=== PATIENT | female | born 1930 | race Caucasian/White ===

== ENCOUNTER → 2016-03-29 | Outpatient (CLI) | payer MEDICARE ==
--- NOTE | 2016-03-29 11:59 | WOMENS IMAGING REPORT ---
EXAM DESCRIPTION: BONE DENSITY HIP/SPINE COMPLETED DATE/TIME: 03/29/2016 10:17 am REASON FOR STUDY: AGE-RELATED OSTEOPOROSIS WITHOUT CURRENT PATHOLOGICAL FRACTURE (M81.0) M81.0 AGE -RELATED OSTEOPOROSIS W/O CURRENT PATHOLOGICAL FRAC Z12.31 ENCNTR SCREEN MAMMOGRAM FOR MALIGNANT GABRIEL PLASM OF JOEY COMPARISON: None. TECHNIQUE: Dual-Energy X-ray Absorptiometry (DEXA) of the AP Spine and Hip. LIMITATIONS: None. FINDINGS: LUMBAR SPINE: The bone mineral density (BMD) measured from L1-L4 in the AP projection correlates with a T-score of -2, which is osteopenia as defined by the World Health Organization. HIP: The bone mineral density (BMD) measured in the left hip correlates with a T-score of -1.7 in the femo ral neck, which is osteopenia as defined by the World Health Organization. COMMENT: The World Health Organization defines low BMD as follows: T-score: Normal: Greater than -1.0 Osteopenia: Between -1.0 and -2.5 Osteoporosis: Less than -2.5 without fractures Established osteoporosis: Less than -2.5 with fractures In general, you may wish to consider: Diagnosis Treatment Follow-up DEXA Normal BMD Prevention 2-3 years Osteopenia Prevention/Therapy 1-2 years Osteoporosis Therapy Yearly TECHNICAL DOCUMENTATION: JOB ID: [id number]- All Rights Reserved
--- NOTE | 2016-03-29 17:26 | WOMENS IMAGING REPORT ---
EXAM DESCRIPTION: BILAT SCREENING MAMMO W/CAD COMPLETED DATE/TIME: 03/29/2016 10:02 am REASON FOR STUDY: BILAT SCREENING MAMMO (Z12.31) M81.0 AGE-RELATED OSTEOPOROSIS W/O CURRENT PATHOLO GICAL FRAC Z12.31 ENCNTR SCREEN MAMMOGRAM FOR MALIGNANT NEOPLASM OF JOEY COMPARISON: No previous TECHNIQUE: Standard craniocaudal and mediolateral oblique views of each breast recorded using digita l acquisition. LIMITATIONS: None. FINDINGS: Findings present which are benign by mammographic criteria. No suspicious masses, calcifi cations or architectural distortion. Benign calcifications bilaterally Read with the assistance of CAD. .[facility] - R2 Cenova Version 1.3 .[facility] - R2 Cenova Version 1.3 .[facility] - R2 Cenova Version 2.4 .[facility] [place] R2 Cenova Version 2.4 .[facility] - R2 Federal Agent Version 9.2 Benign mammographic findings may include one or more of the following: Smooth masses, popcorn/rim/co arse calcifications, asymmetries, post-procedure changes, and lesions with long-standing stability. BREAST DENSITY: b. There are scattered areas of fibroglandular density. BIRAD: 2 BENIGN FINDING(S) RECOMMENDATION: ROUTINE SCREENING COMMENT: PATIENT NOTIFIED BY LETTER. The [employer] recommends an annual screening mammogram for women aged 40 years or over. Each patient will receive a reminder prior to the anniversary date of her mammogram. The [employer] (ACR) has developed recommendations for screening MRI of the breast s in certain patient populations, to be used in conjunction with mammography. Breast MRI surveillanc e may be appropriate for women with more than 20% lifetime risk of developing breast cancer as deter mined by genetic testing, significant family history of the disease, or history of mantle radiation f or Hodgkins Disease. ACR Practice Guidelines 2008. TECHNICAL DOCUMENTATION: FINDING NUMBER: (1) ASSESSMENT: (1) JOB ID: [id number] [employer]- All Rights Reserved
== END ==
LOC: WI 09:40
PROVIDERS: ATTEND Physician Assistant
DX: M81.0 Age-related osteoporosis without current pathological fracture (principal); Z12.31 Encounter for screening mammogram for malignant neoplasm of breast
CPT/HCPCS: 77080; G0202; 77067

== ENCOUNTER 2016-12-15 08:45 | Day surgery (SDC) | payer MEDICARE ==
[~2016-12-15 08:45] MED LIST: KETOROLAC TROMETHAMINE 0.45% 4 DROP/0.4 ML DROPERETTE OD PRN
[2016-12-15] MEDS ORDERED: EPINEPHRINE INJ/PF 1 MG/1 ML AMPULE ONE (08:49)
[2016-12-15] MEDS ORDERED: LIDOCAINE 1% INJ-PF (10 MG/ML) 30 ML SDV ONE (08:49)
[2016-12-15] MEDS ORDERED: CHONDR SU A NA/HYALUR INTRAOC KIT (SURGICARE) ONE (08:50)
[2016-12-15] MEDS: TETRACAINE HCL 0.5% OPH SOLN 2 ML OD PRN ×3 (09:30→10:10)
[2016-12-15] MEDS: TROPICAMIDE 1% OPH SOLN 3 ML OD PRN ×3 (09:30→09:56)
[2016-12-15] MEDS: CYCLOPENTOLATE 0.2%/PHENYLEPHRINE 1% OPH SOLN 2 ML OD PRN ×3 (09:30→09:56)
[2016-12-15] MEDS: BESIFLOXACIN HCL 0.6% OPH SUSP 5 ML BOTTLE OD PRN ×3 (09:31→10:28)
[2016-12-15] MEDS ORDERED: MIDAZOLAM 2 MG/2 ML INJ ONE (10:01)
[2016-12-15] MEDS ORDERED: FENTANYL CITRATE INJ/PF 100 MCG/2 ML AMPUL ONE (10:01)
--- NOTE | 2016-12-15 18:38 | [facility] OPERATIVE REPORT E ---
[facility] Operative Report NAME: SANDRA FLORENTINO AGE: 86Y DATE OF SURGERY: 12/15/2016 ROOM: PREOPERATIVE DIAGNOSIS: Cataract, right eye. POSTOPERATIVE DIAGNOSIS: Cataract, right eye. OPERATION: Cataract extraction with intraocular lens implant of the right eye. SURGEON: SARA BURRIS M.D. ANESTHESIA: Topical. PROCEDURE: After obtaining appropriate consent, the patient's right eye was prepped and draped in sterile fashion as well as the surgeon in a sterile manner and cataract surgery was started. First a paracentesis blade was used to make a small side-port incision. Viscoelastic was used to inflate the anterior chamber. Next a 2.4 mm incision was made with the paracentesis blade. A continuous capsulorrhexis incision was made using a cystotome and Utrata forceps. Following this hydrodissection was carried out to make the lens fully loose and mobile and it was rotated 90 degrees. Following this, a wdtwrz-yby-jhcchru technique was used to phacoemulsify the lens with a CDE of 13.6. The remaining cortex was removed with irrigation/aspiration. Provisc was instilled into the capsular bag to inflate the bag. A SN60WF, 22.0 diopter lens was placed. The remaining viscoelastic material was removed with irrigation/aspiration. Following this, a 10-0 nylon suture was used to close the incision and it was found to be watertight. Vigamox was instilled in the eye and a protective shield was placed over the eye. The patient returned to the postoperative recovery in stable condition. DICTATING PHYSICIAN: SARA BURRIS M.D. [id number] PHY#: [id number] ID: [id number] JOB#: [id number] ACCT: [id number] cc:SARA BURRIS M.D. >
--- NOTE | 2016-12-15 18:42 | [facility] DISCHARGE SUMMARY E ---
[facility] Discharge Summary NAME: SANDRA FLORENTINO AGE: 86Y ADMITTED: 12/15/2016 DISCHARGED: 12/15/2016 HISTORY OF PRESENT ILLNESS AND HOSPITAL COURSE: This is an 86-year-old patient who underwent cataract extraction of the right eye. DIAGNOSIS: Cataract, right eye. HOSPITAL COURSE: She underwent surgery because she was having difficulty with glare from headlights, making driving difficult. DISCHARGE INSTRUCTIONS: 1. She should be on a regular diet. 2. No bending at the waist and no heavy lifting. 3. She should use her Besivance, Ilevro, and Durezol at 3 p.m. and 8 p.m. and sleep with a rigid shield. 4. I will see her for her one-day postoperative tomorrow. DICTATING PHYSICIAN: SARA BURRIS M.D. [id number] PHY#: [id number] ID: [id number] JOB#: [id number] ACCT: [id number] cc:SARA BURRIS M.D. >
== END 2016-12-15 11:03 | disposition home or self-care (01) ==
LOC: SC 08:45
PROVIDERS: ATTEND Internal Medicine
PROC: 08RJ3JZ Replacement of Right Lens with Synthetic Substitute, Percutaneous Approach (ICD-10-PCS; principal; 2016-12-15 10:30)
DX: H25.13 Age-related nuclear cataract, bilateral (principal); Z88.5 Allergy status to narcotic agent
CPT/HCPCS: 66984; V2632; J2250; J3490 ×2; A9270; J0171; J3010; 142

== ENCOUNTER 2017-01-05 09:39 | Day surgery (SDC) | payer MEDICARE ==
[~2017-01-05 09:39] MED LIST changes: +CHONDR SU A NA/HYALUR INTRAOC KIT (SURGICARE) ONE; +EPINEPHRINE INJ/PF 1 MG/1 ML AMPULE ONE; -KETOROLAC TROMETHAMINE 0.45% 4 DROP/0.4 ML DROPERETTE OD PRN; +KETOROLAC TROMETHAMINE 0.45% 4 DROP/0.4 ML DROPERETTE OS PRN; +LIDOCAINE 1% INJ-PF (10 MG/ML) 30 ML SDV ONE
[2017-01-05] MEDS: TROPICAMIDE 1% OPH SOLN 3 ML OS PRN ×3 (10:00→10:25)
[2017-01-05] MEDS: BESIFLOXACIN HCL 0.6% OPH SUSP 5 ML BOTTLE OS PRN ×3 (10:00→10:54)
[2017-01-05] MEDS: CYCLOPENTOLATE 0.2%/PHENYLEPHRINE 1% OPH SOLN 2 ML OS PRN ×3 (10:00→10:25)
[2017-01-05] MEDS: TETRACAINE HCL 0.5% OPH SOLN 2 ML OS PRN ×4 (10:00→10:40)
[2017-01-05] MEDS ORDERED: MIDAZOLAM 2 MG/2 ML INJ ONE (10:05)
--- NOTE | 2017-01-08 18:57 | [facility] OPERATIVE REPORT E ---
[facility] Operative Report NAME: SANDRA FLORENTINO AGE: 86Y DATE OF SURGERY: 01/05/2017 ROOM: PREOPERATIVE DIAGNOSIS: Cataract, left eye. POSTOPERATIVE DIAGNOSIS: Cataract, left eye. OPERATION: Cataract extraction with intraocular lens implant of the left eye. SURGEON: SARA BURRIS M.D. ANESTHESIA: Topical. PROCEDURE: After obtaining appropriate consent, the patient's left eye was prepped and draped in sterile fashion as well as the surgeon in a sterile manner and cataract surgery was started. First a paracentesis blade was used to make a small side-port incision. Viscoelastic was used to inflate the anterior chamber. Next a 2.4 mm incision was made with the paracentesis blade. A continuous capsulorrhexis incision was made using a cystotome and Utrata forceps. Following this hydrodissection was carried out to make the lens fully loose and mobile and it was rotated 90 degrees. Following this, a akzhye-mbx-dgkvxzx technique was used to phacoemulsify the lens with a CDE of 21.15. The remaining cortex was removed with irrigation/aspiration. Provisc was instilled into the capsular bag to inflate the bag. A SN60WF, 22.5 diopter lens was placed. The remaining viscoelastic material was removed with irrigation/aspiration. Following this, a 10-0 nylon suture was used to close the incision and it was found to be watertight. Vigamox was instilled in the eye and a protective shield was placed over the eye. The patient returned to the postoperative recovery in stable condition. DICTATING PHYSICIAN: SARA BURRIS M.D. [id number] PHY#: [id number] ID: [id number] JOB#: [id number] ACCT: [id number] cc:SARA BURRIS M.D. >
--- NOTE | 2017-01-08 18:58 | [facility] DISCHARGE SUMMARY E ---
[facility] Discharge Summary NAME: SANDRA FLORENTINO AGE: 86Y ADMITTED: 01/05/2017 DISCHARGED: 01/05/2017 HISTORY OF PRESENT ILLNESS AND HOSPITAL COURSE: This is an 86-year-old patient who underwent cataract extraction of the left eye. DIAGNOSIS: Cataract, left eye. HOSPITAL COURSE: She underwent surgery because she was having difficulty driving due to poor visualization of the street signs. DISCHARGE INSTRUCTIONS: 1. She should be on a regular diet. 2. No bending at the waist and no heavy lifting. 3. She should use Besivance, Ilevro, and Durezol at 3 p.m. and 8 p.m. and sleep with a rigid shield. 4. I will see her for a one-day postoperative tomorrow. DICTATING PHYSICIAN: SARA BURRIS M.D. [id number] PHY#: [id number] ID: [id number] JOB#: [id number] ACCT: [id number] cc:SARA BURRIS M.D. >
== END 2017-01-05 11:27 | disposition home or self-care (01) ==
LOC: SC 09:39
PROVIDERS: ATTEND Internal Medicine
PROC: 08RK3JZ Replacement of Left Lens with Synthetic Substitute, Percutaneous Approach (ICD-10-PCS; principal; 2017-01-05 11:00)
DX: H25.12 Age-related nuclear cataract, left eye (principal); Z96.1 Presence of intraocular lens; Z88.5 Allergy status to narcotic agent
CPT/HCPCS: 66984; V2632; J2250; J3490 ×2; A9270; J0171; 142

== ENCOUNTER → 2018-04-10 | Outpatient (CLI) | payer MEDICARE ==
--- NOTE | 2018-04-10 15:48 | WOMENS IMAGING REPORT ---
EXAM DESCRIPTION: 3D SCREENING MAMMO BILAT COMPLETED DATE/TIME: 04/10/2018 1:21 pm REASON FOR STUDY: Z12.31 SCREENING MAMMO Z12.31 ENCNTR SCREEN MAMMOGRAM FOR MALIGNANT NEOPLASM OF B RE COMPARISON: 2017 TECHNIQUE: Standard craniocaudal and mediolateral oblique views of each breast recorded using digita l acquisition and breast tomosynthesis. LIMITATIONS: None. FINDINGS: Findings present which are benign by mammographic criteria. No suspicious masses, calcifi cations or architectural distortion. Pertinent benign findings: Stable lymph node left breast Read with the assistance of CAD. .[facility] - R2 Cenova Version 1.3 .[facility] - R2 Cenova Version 1.3 .[facility] - R2 Cenova Version 2.4 .[facility] - R2 Cenova Version 2.4 .[facility] - R2 [employer] Version 9.2 Benign mammographic findings may include one or more of the following: Smooth masses, popcorn/rim/co arse calcifications, asymmetries, post-procedure changes, and lesions with long-standing stability. IMPRESSION: BENIGN MAMMOGRAPHIC FINDINGS. BIRADS 2 BREAST DENSITY: b. There are scattered areas of fibroglandular density. BIRAD: 2 BENIGN FINDING(S) RECOMMENDATION: RECOMMENDATION: ROUTINE SCREENING COMMENT: The patient has been notified of the results by letter per MQSA requirements. Additional no tification policies are in place for contacting patient with suspicious or incomplete findings. Quality ID #[id number]: The [employer] recommends an annual screening mammogram for women aged 40 years or over. This facility utilizes a reminder system to ensure that all patients receive reminder letters, and/or direct phone calls for appointments. This includes reminders for routine scr eening mammograms, diagnostic mammograms, or other Breast Imaging Interventions when appropriate. Th is patient will be placed in the appropriate reminder system. The [employer] (ACR) has developed recommendations for screening MRI of the breast s in certain patient populations, to be used in conjunction with mammography. Breast MRI surveillanc e may be appropriate for women with more than 20% lifetime risk of developing breast cancer as deter mined by genetic testing, significant family history of the disease, or history of mantle radiation f or Hodgkins Disease. ACR Practice Guidelines 2008. DBT Technology DBT is a type of tomographic mammography. With conventional mammography, overlapping breast tissue ma y make lesions difficult to detect, even with good compression. DBT uses an x-ray tube that rotates a round the breast, taking images at different angles. These images are then combined to create thin sl ices of the breast that the radiologist can view as a 3D reconstruction. The Hologic unit can perform full-field digital mammograms (2D imaging); or DBT (3D imaging); or both, in a combination mode that quickly performs both the mammogram and the tomosynthesis scan while the breast is still compressed. PQRS 6045F: Fluoroscopic imaging is not utilized for breast tomosynthesis. TECHNICAL DOCUMENTATION: FINDING NUMBER: (1) ASSESSMENT: (1) JOB ID: [id number] [employer]- All Rights Reserved Reading location - IP/workstation name: [email or web address]
== END ==
LOC: WI 12:39
PROVIDERS: ATTEND Physician Assistant
DX: Z12.31 Encounter for screening mammogram for malignant neoplasm of breast (principal)
CPT/HCPCS: 77063; 77067

== ENCOUNTER 2018-06-27 17:59 | Inpatient (IN) | payer MEDICARE ==
--- NOTE | 2018-06-27 19:46 | ER Document Report ---
ED Medical Screen (RME) - General Chief Complaint: Abnormal Lab Results Stated Complaint: ABNORMAL LABS/DIARRHEA Time Seen by Provider: 06/27/18 19:44 Primary Care Provider: GUALBERTO MOSES PA-C [Primary Care Provider] - Follow up as needed Notes: Very pleasant 87-year-old female presents sent over from Dr. Moses's office to the emergency department by personal vehicle for abnormal lab results and diarrhea times [address] Tejeda called to the ER and reported that her sodium was 117. Patient and patient's daughter reports that she has had diarrhea for 3 weeks, states that from midnight to 6 AM she has about 15 episodes of diarrhea, takes Imodium in the morning and then at lunchtime which helps it subside, and then the cycle begins again. She suspects that was from a salad that she ate 3 weeks ago and she just has not been able to overcome the illness. She denies fever, chills, blood in her stool, vomiting or hematemesis, complains of gas but no abdominal pain. No other complaints. I have greeted and performed a rapid initial assessment of this patient. A comprehensive ED assessment and evaluation of the patient, analysis of test results and completion of medical decision making process will be conducted by an additional ED providers. TRAVEL OUTSIDE OF THE [place] IN LAST 30 DAYS: No - Related Data Allergies/Adverse Reactions: morphine Adverse Reaction (Verified 06/27/18 18:02) Nausea Past Medical History - Social History Chew tobacco use (# tins/day): No Frequency of alcohol use: None Drug Abuse: None - Past Medical History Cardiac Medical History: Denies: Hx Heart Attack, Hx Hypertension Pulmonary Medical History: Denies: Hx Asthma Neurological Medical History: Denies: Hx Cerebrovascular Accident, Hx Seizures Renal/ Medical History: Denies: Hx Peritoneal Dialysis GI Medical History: Denies: Hx Hepatitis, Hx Hiatal Hernia, Hx Ulcer Infectious Medical History: Denies: Hx Hepatitis Past Surgical History: Reports: Hx Hysterectomy. Denies: Hx Mastectomy, Hx Open Heart Surgery, Hx Pacemaker Physical Exam - Vital signs Vitals: Temp Pulse Resp BP Pulse Ox 98.1 F 65 16 176/78 H 97 06/27/18 18:07 06/27/18 18:07 06/27/18 18:07 06/27/18 18:07 06/27/18 18:07 Course - Vital Signs Vital signs: Temp Pulse Resp BP Pulse Ox 98.1 F 65 16 176/78 H 97 06/27/18 18:07 06/27/18 18:07 06/27/18 18:07 06/27/18 18:07 06/27/18 18:07 Doctor's Discharge - Discharge Referrals: GUALBERTO MOSES PA-C [Primary Care Provider] - Follow up as needed
[2018-06-27] MEDS ORDERED: NORMAL SALINE 1000 ML 1,000 ML IV ONE (19:47)
[2018-06-27 21:19] LABS: ABSOLUTE EOSINOPHILS # (AUTO) 0.1 10^3/uL (0.0-0.6); ABSOLUTE LYMPHOCYTES (AUTO) 1.5 10^3/uL (0.5-4.7); ABSOLUTE NEUT (AUTO) 4.8 10^3/uL (1.7-8.2); BASOPHILS % (AUTO) 0.6 % (0-2); EOSINOPHILS % (AUTO) 1.1 % (0-6); HEMATOCRIT 37.5 % (36.0-47.0); HEMOGLOBIN 13.1 g/dL (12.0-15.5); LYMPHOCYTES % (AUTO) 20.3 % (13-45); MEAN CORPUSCULAR HEMOGLOBIN 31.8 pg (27.0-33.4); MEAN CORPUSCULAR HGB CONC 34.8 g/dL (32.0-36.0); MEAN CORPUSCULAR VOLUME 91 fl (80-97); PLATELET COUNT 338 10^3/uL (150-450); RED BLOOD COUNT 4.12 10^6/uL (3.72-5.28); RED CELL DISTRIBUTION WIDTH 13.3 % (11.5-14.0); TOTAL CELLS COUNTED % (AUTO) 100 %; WHITE BLOOD COUNT 7.4 10^3/uL (4.0-10.5)
--- NOTE | 2018-06-27 21:19 | ER Document Report ---
ED General - General Chief Complaint: Abnormal Lab Results Stated Complaint: ABNORMAL LABS/DIARRHEA Time Seen by Provider: 06/27/18 21:18 Primary Care Provider: GUALBERTO FERNANDEZ PA-C [Primary Care Provider] - Follow up as needed Mode of Arrival: Ambulatory Information source: Patient, Relative Notes: HISTORY OF PRESENT ILLNESS: Patient is a 87-year-old female with a past medical history of high cholesterol who presents with 3 weeks of nonbloody and watery diarrhea and general weakness with a near syncopal episode prior to arrival. Patient presented to her primary physician who obtained blood work, reportedly the patient had a sodium of 117 and was instructed to come to the emergency department for admission. Of note, the patient reports that she ate dinner at [employer] approximately 3 weeks ago before symptom onset and multiple other members of the [employer] had identical symptoms. Location: Global Onset: 3 weeks ago Provocation: Unknown Quality: Watery diarrhea Radiation: None Severity: Moderate Timing: Intermittent, copious History of syncope: None Recent head injury: None Preceding symptoms: None Associated symptoms: No fevers or chills, no abdominal pain, no chest pain or shortness of breath, no confusion/disorientation, no ataxia REVIEW OF SYSTEMS: CONSTITUTIONAL : Denies fever or chills, no sweats. Denies recent illness. EENT: Denies eye, ear, throat, or mouth pain or symptoms. Denies nasal or sinus congestion. CARDIOVASCULAR: Denies chest pain. RESPIRATORY: Denies cough, cold, or chest congestion. Denies shortness of breath, difficulty breathing, or wheezing. GASTROINTESTINAL: Denies abdominal pain. Positive for nonbloody/watery diarrhea. Denies nausea or vomiting. Denies constipation. GENITOURINARY: Denies difficulty urinating, painful urination, burning, frequency, or blood in urine. FEMALE GENITOURINARY: Denies vaginal bleeding, abnormal or irregular periods. MUSCULOSKELETAL: Denies body aches. Denies neck or back pain or joint pain or swelling. SKIN: Denies rash or skin lesions. HEMATOLOGIC : Denies easy bruising or bleeding. LYMPHATIC: Denies swollen, enlarged glands. NEUROLOGICAL: Positive for near syncope. Denies seizures, altered mental status, or loss of consciousness. Denies weakness/paralysis, problems with gait/speech. Denies sensory or motor loss. PSYCHIATRIC: Denies anxiety or stress or depression. All other systems reviewed and negative. PHYSICAL EXAMINATION: GENERAL: Well-appearing, well-nourished and in no acute distress. HEAD: Atraumatic, normocephalic. No scalp deformity, depression, or crepitance. EYES: Pupils are 3 mm and equal/round/reactive to light, extraocular movements intact, sclera anicteric, conjunctiva are normal. ENT: Nares patent bilaterally, oropharynx clear without exudates or palatal petechia. Moist mucous membranes. No tonsil hypertrophy. NECK: Normal range of motion, supple without lymphadenopathy. LUNGS: Breath sounds present, equal, and clear to auscultation bilaterally. No wheezes, rales, or rhonchi. HEART: Regular rate and rhythm without murmurs, rubs, or gallops. 2+ peripheral pulses. Normal capillary refill. ABDOMEN: Soft, nontender, nondistended. Normoactive bowel sounds. No guarding, no rebound. No masses appreciated. BACK: Normal contour, no midline tenderness. Rectal exam deferred. GENITAL/PELVC: Deferred. EXTREMITIES: Normal range of motion, no pitting or edema. No cyanosis. NEUROLOGICAL: No focal neurological deficits. Cranial nerves III-XII grossly intact. Moves all extremities spontaneously and on command. PSYCH: Normal mood, normal affect. No suicidal thoughts/ideations. No homicidal thoughts/ideations. No hallucinations. SKIN: Warm, dry, normal turgor, no rashes or lesions noted. ASSESSMENT AND PLAN: This patient is a 87-year-old female who presents with 3 weeks of nonbloody and watery diarrhea and 1 day of worsening weakness with near syncopal episode prior to arrival. Unsure etiology of diarrhea, could be infectious versus inflammatory. Etiology of hyponatremia is also unclear, however could represent adrenal suppression. 1. Will obtain labs, urine, serum/serum osmolality, urine sodium, give oral Imodium, and admit to the hospital. 2. Will fluid restrict. TRAVEL OUTSIDE OF THE [place] IN LAST 30 DAYS: No - Related Data Allergies/Adverse Reactions: morphine Adverse Reaction (Verified 06/27/18 18:02) Nausea Past Medical History - General Information source: Patient, Relative - Social History Smoking Status: Never Smoker Chew tobacco use (# tins/day): No Frequency of alcohol use: None Drug Abuse: None Lives with: Family Family History: Reviewed & Not Pertinent Patient has suicidal ideation: No Patient has homicidal ideation: No - Past Medical History Cardiac Medical History: Reports: Hx Hypercholesterolemia Denies: Hx Heart Attack, Hx Hypertension Pulmonary Medical History: Reports: None Denies: Hx Asthma EENT Medical History: Reports: None Neurological Medical History: Reports: None. Denies: Hx Cerebrovascular Accident, Hx Seizures Endocrine Medical History: Reports: None Renal/ Medical History: Reports: None. Denies: Hx Peritoneal Dialysis Malignancy Medical History: Reports: None GI Medical History: Reports: None. Denies: Hx Hepatitis, Hx Hiatal Hernia, Hx Ulcer Musculoskeletal Medical History: Reports None Skin Medical History: Reports None Psychiatric Medical History: Reports: None Traumatic Medical History: Reports: None Infectious Medical History: Reports: None. Denies: Hx Hepatitis Past Surgical History: Reports: Hx Hysterectomy. Denies: Hx Mastectomy, Hx Open Heart Surgery, Hx Pacemaker - Immunizations Immunizations up to date: Yes Hx Diphtheria, Pertussis, Tetanus Vaccination: Yes History of Influenza Vaccine for 12/2017 - 05/2018 Season: Unknown Physical Exam - Vital signs Vitals: Temp Pulse Resp BP Pulse Ox 98.1 F 65 16 176/78 H 97 06/27/18 18:07 06/27/18 18:07 06/27/18 18:07 06/27/18 18:07 06/27/18 18:07 Course - Re-evaluation Re-evalutation: 06/27/18 23:08 Patient has a sodium of 122. She will be fluid restricted and is admitted to the hospital. - Vital Signs Vital signs: Temp Pulse Resp BP Pulse Ox 98.1 F 65 13 176/78 H 91 L 06/27/18 18:07 06/27/18 18:07 06/27/18 21:08 06/27/18 18:07 06/27/18 21:08 - Laboratory Result Diagrams: 06/27/18 20:57 06/27/18 20:57 Laboratory results interpreted by me: 06/27/18 20:57 Sodium 122.3 L Chloride 93 L Carbon Dioxide 20 L Creatinine 0.42 L AST 61 H - Consults Dr. Plasencia Time consulted: 23:09 - will admit Consulted provider: will come to ER Discharge - Discharge Clinical Impression: Hyponatremia Diarrhea Qualifiers: Diarrhea type: unspecified type Qualified Code(s): R19.7 - Diarrhea, unspecified Condition: Stable Disposition: ADMITTED INPATIENT Admitting Provider: Luis Angel (Hospitalist) Unit Admitted: Telemetry Referrals: GUALBERTO FERNANDEZ PA-C [Primary Care Provider] - Follow up as needed
[2018-06-27 21:36] LABS: ALANINE AMINOTRANSFERASE 49 U/L (9-52); ALBUMIN 4.1 g/dL (3.5-5.0); ALKALINE PHOSPHATASE 84 U/L (38-126); ANION GAP 9 (5-19); ASPARTATE AMINO TRANSFERASE 61 U/L (14-36); BILIRUBIN,DIRECT 0.2 mg/dL (0.0-0.4); BILIRUBIN,TOTAL 0.5 mg/dL (0.2-1.3); BLOOD UREA NITROGEN 8 mg/dL (7-20); CALCIUM 10.2 mg/dL (8.4-10.2); CARBON DIOXIDE 20 mmol/L (22-30); CHLORIDE 93 mmol/L (98-107); GLUCOSE 110 mg/dL (75-110); POTASSIUM 3.6 mmol/L (3.6-5.0); SODIUM 122.3 mmol/L (137-145); TOTAL PROTEIN 6.9 g/dL (6.3-8.2)
[2018-06-27] MEDS ORDERED: LOPERAMIDE HCL 2 MG CAPSULE PO ONE (22:26)
[2018-06-27] MEDS ORDERED: ONDANSETRON HCL INJ/PF 4 MG/2 ML SDV IV ONE (22:50)
[2018-06-27] MEDS ORDERED: ACETAMINOPHEN 325 MG TABLET PO PRN (23:05)
[2018-06-27] MEDS ORDERED: IPRATROPIUM/ALBUTEROL 0.5-2.5 MG/3 ML AMPUL NEB PRN (23:05)
[2018-06-27] MEDS ORDERED: MAGNESIUM HYDROXIDE SUSP 30 ML UDCUP PO PRN (23:05)
[2018-06-27] MEDS ORDERED: MAG HYDROX/AL HYDROX/SIMETH SUSP 30 ML UDCUP PO PRN (23:05)
--- NOTE | 2018-06-28 03:21 | PDOC H&P ---
History of Present Illness Admission Date/PCP: 06/27/18 23:22 GUALBERTO FERNANDEZ PA-C Patient complains of: Generalized weakness and nausea History of Present Illness: SANDRA FLORENTINO is a 87 year old female without significant past medical history who takes diet supplements only who presents after several days of generalized weakness prompting evaluation by primary care where she is found to have hyponatremia and referred to the emergency department for treatment. Sodium is found to be 122. Patient denies excessive thirst drinking water all night long and at least 64 ounces of caffeinated beverage during the day. She denies seizure, blackout, headache but admits to generalized weakness and polyuria with clear colored urine. In the emergency room after evaluation nurse reports seizure-like activity. 3% saline is ordered and she is admitted to the ICU. Past Medical History Cardiac Medical History: Reports: Hyperlipidema Denies: Myocardial Infarction, Hypertension Pulmonary Medical History: Reports: None Denies: Asthma EENT Medical History: Reports: None Neurological Medical History: Reports: None Denies: Seizures Endocrine Medical History: Reports: None Renal/ Medical History: Reports: None Malignancy Medical History: Reports: None GI Medical History: Reports: None Denies: Hepatitis, Hiatal Hernia Musculoskeltal Medical History: Reports: None Skin Medical History: Reports: None Psychiatric Medical History: Reports: None Traumatic Medical History: Reports: None Hematology: Denies: Anemia, Sickle Cell Disease Infectious Medical History: Reports: None Past Surgical History Past Surgical History: Reports: Hysterectomy Denies: Amputation, Mastectomy, Pacemaker Social History Information Source: Patient Lives with: Family Smoking Status: Never Smoker Frequency of Alcohol Use: None Drugs: None - Advance Directive Resuscitation Status: Full Code Family History Family History: Hypertension Parental Family History Reviewed: Yes Children Family History Reviewed: Yes Sibling(s) Family History Reviewed.: Yes Medication/Allergy Home Medications: Ascorbic Acid [Vitamin C 500 mg Tablet] 500 mg PO DAILY 12/12/16 Besifloxacin HCl [Besivance 0.6% Oph Susp 5 ml] 1 drop OP ASDIR PRN 12/12/16 Calcium Carbonate/Vitamin D3 [Calcium 500 + Vit D Caplet] 1 each PO DAILY 12/12/16 Difluprednate [Durezol] 5 ml OP ASDIR PRN 12/12/16 Flaxseed Oil [Flax Seed Oil] 1,000 mg PO DAILY 12/12/16 Glucosamine Sulfate Dipot Chlr [Glucosamine] 1,000 mg PO DAILY 12/12/16 Multivitamin [Multivitamins] 1 each PO DAILY 12/12/16 Nepafenac [Ilevro] 1.7 ml OP ASDIR PRN 12/12/16 [place]-3 Fatty Acids/Fish Oil [Fish Oil 300 Mg Softgel] 1 each PO DAILY 12/12/16 Simvastatin 10 mg PO DAILY 12/12/16 [place]'s Wort 150 mg PO DAILY 12/12/16 Allergies/Adverse Reactions: morphine Adverse Reaction (Verified 06/27/18 18:02) Nausea Review of Systems Constitutional: PRESENT: as per HPI, weakness, other - Excessive thirst. ABSENT: weight gain, weight loss Eyes: PRESENT: as per HPI Ears: PRESENT: as per HPI Nose, Mouth, and Throat: PRESENT: as per HPI Breasts: PRESENT: as per HPI Cardiovascular: PRESENT: as per HPI Respiratory: PRESENT: as per HPI Gastrointestinal: PRESENT: as per HPI, diarrhea, nausea. ABSENT: bloating, coffee ground emesis, dysphagia, heartburn, hematemesis, hematochezia Genitourinary: PRESENT: as per HPI, other - Polyuria Musculoskeletal: ABSENT: joint swelling Integumentary: ABSENT: rash, wounds Neurological: PRESENT: weakness. ABSENT: abnormal gait, abnormal speech, confusion, convulsions, dizziness, focal weakness, syncope Psychiatric: ABSENT: anxiety, depression, homidical ideation, suicidal ideation Endocrine: ABSENT: cold intolerance, heat intolerance, polydipsia, polyuria Hematologic/Lymphatic: ABSENT: easy bleeding, easy bruising Physical Exam Vital Signs: Temp Pulse Resp BP Pulse Ox 98.4 F 65 14 104/50 L 94 06/28/18 02:22 06/27/18 18:07 06/28/18 02:40 06/28/18 02:40 06/28/18 02:53 Intake & Output 06/26/18 06/27/18 06/28/18 11:59 11:59 11:59 Weight 61.8 kg General appearance: PRESENT: no acute distress, well-developed, well-nourished Head exam: PRESENT: atraumatic, normocephalic Eye exam: PRESENT: conjunctiva pink, EOMI, PERRLA. ABSENT: scleral icterus Ear exam: PRESENT: normal external ear exam Mouth exam: PRESENT: moist, tongue midline Neck exam: ABSENT: carotid bruit, JVD, lymphadenopathy, thyromegaly Respiratory exam: PRESENT: clear to auscultation [place]. ABSENT: rales, rhonchi, wheezes Cardiovascular exam: PRESENT: RRR, systolic murmur - 3 out of 6 ejection murmur. ABSENT: diastolic murmur, rubs Pulses: PRESENT: normal dorsalis pedis pul Vascular exam: PRESENT: normal capillary refill GI/Abdominal exam: PRESENT: normal bowel sounds, soft. ABSENT: distended, guarding, mass, organolmegaly, rebound, tenderness Rectal exam: PRESENT: deferred Extremities exam: PRESENT: full ROM. ABSENT: calf tenderness, clubbing, pedal edema Neurological exam: PRESENT: alert, awake, oriented to person, oriented to place, oriented to time, oriented to situation, CN II-XII grossly intact. ABSENT: motor sensory deficit Psychiatric exam: PRESENT: appropriate affect, normal mood. ABSENT: homicidal ideation, suicidal ideation Skin exam: PRESENT: dry, intact, warm. ABSENT: cyanosis, rash Results Laboratory Results: 06/27/18 20:57 06/27/18 20:57 06/27/18 06/27/18 06/27/18 20:57 20:57 20:57 WBC 7.4 RBC 4.12 Hgb 13.1 Hct 37.5 MCV 91 MCH 31.8 MCHC 34.8 RDW 13.3 Plt Count 338 Seg Neutrophils % 65.0 Lymphocytes % 20.3 Monocytes % 13.0 Eosinophils % 1.1 Basophils % 0.6 Absolute Neutrophils 4.8 Absolute Lymphocytes 1.5 Absolute Monocytes 1.0 Absolute Eosinophils 0.1 Absolute Basophils 0.0 Sodium 122.3 L Potassium 3.6 Chloride 93 L Carbon Dioxide 20 L Anion Gap 9 BUN 8 Creatinine 0.42 L Est GFR ( Amer) > 60 Est GFR (Non-Af Amer) > 60 Glucose 110 Serum Osmolality Cancelled Calcium 10.2 Total Bilirubin 0.5 AST 61 H ALT 49 Alkaline Phosphatase 84 Total Protein 6.9 Albumin 4.1 TSH Stool for White Cells 06/27/18 06/27/18 06/27/18 20:57 21:20 23:45 WBC RBC Hgb Hct MCV MCH MCHC RDW Plt Count Seg Neutrophils % Lymphocytes % Monocytes % Eosinophils % Basophils % Absolute Neutrophils Absolute Lymphocytes Absolute Monocytes Absolute Eosinophils Absolute Basophils Sodium Potassium Chloride Carbon Dioxide Anion Gap BUN Creatinine Est GFR ( Amer) Est GFR (Non-Af Amer) Glucose Serum Osmolality 249 L Calcium Total Bilirubin AST ALT Alkaline Phosphatase Total Protein Albumin TSH 3.42 Stool for White Cells NO WBCs SEEN Assessment and Plan - Diagnosis (1) Hyponatremia Is this a current diagnosis for this admission?: Yes Plan: History strongly suggests volume overload, hypotonic hyponatremia. 3% saline initiated at 50 mL/h follow-up chemistry every 6 hours. (2) Generalized weakness Is this a current diagnosis for this admission?: Yes Plan: Most likely secondary to #1, supportive care follow-up TSH - Time Time Spent with patient: 35 or more minutes
[2018-06-28] MEDS ORDERED: SODIUM CHLORIDE 3% 150 ML IV ONE (03:30)
[2018-06-28] MEDS ORDERED: SODIUM CHLORIDE 3% 500 ML IV ONE (03:38)
[2018-06-28] MEDS ORDERED: FUROSEMIDE INJ/PF 20 MG/2 ML SDV IV ONE (04:00)
[2018-06-28 05:05] LABS: APPEARANCE,URINE SLIGHTLY-CLOUDY; BILIRUBIN,URINE NEGATIVE (NEGATIVE); COLOR,URINE YELLOW; GLUCOSE, URINE NEGATIVE (NEGATIVE); KETONES,URINE NEGATIVE (NEGATIVE); LEUKOCYTE ESTERASE,URINE NEGATIVE (NEGATIVE); NITRITE,URINE NEGATIVE (NEGATIVE); PROTEIN,URINE 30 mg/dL (NEGATIVE); URINE SPECIFIC GRAVITY 1.006; UROBILINOGEN,URINE NEGATIVE mg/dL (<2.0)
[2018-06-28 05:24] LABS: OSMOLALITY,URINE 276 mOsm/kg (300-900)
[2018-06-28 05:26] LABS: URINE SODIUM 79 mmol/L (30-90)
[2018-06-28 06:54] LABS: ABSOLUTE LYMPHOCYTES (AUTO) 0.5 10^3/uL (0.5-4.7); ABSOLUTE MONOCYTES (AUTO) 0.5 10^3/uL (0.1-1.4); ABSOLUTE NEUT (AUTO) 8.7 10^3/uL (1.7-8.2); BASOPHILS % (AUTO) 0.1 % (0-2); EOSINOPHILS % (AUTO) 0.1 % (0-6); HEMATOCRIT 38.2 % (36.0-47.0); HEMOGLOBIN 13.4 g/dL (12.0-15.5); LYMPHOCYTES % (AUTO) 5.2 % (13-45); MEAN CORPUSCULAR VOLUME 91 fl (80-97); MONOCYTES % (AUTO) 5.2 % (3-13); PLATELET COUNT 331 10^3/uL (150-450); RED BLOOD COUNT 4.19 10^6/uL (3.72-5.28); RED CELL DISTRIBUTION WIDTH 13.3 % (11.5-14.0); SEGMENTED NEUTROPHILS % (AUTO) 89.4 % (42-78); TOTAL CELLS COUNTED % (AUTO) 100 %; WHITE BLOOD COUNT 9.7 10^3/uL (4.0-10.5)
[2018-06-28] MEDS: HEPARIN SOD (PORCINE) 5,000 UNIT/ML 1 ML SYRINGE SUBCUT SCH ×3 (06:59→23:06)
[2018-06-28 07:12] LABS: ANION GAP 10 (5-19); BLOOD UREA NITROGEN 13 mg/dL (7-20); CALCIUM 10.2 mg/dL (8.4-10.2); CARBON DIOXIDE 17 mmol/L (22-30); CHLORIDE 97 mmol/L (98-107); GLUCOSE 134 mg/dL (75-110); POTASSIUM 3.9 mmol/L (3.6-5.0); SODIUM 124.2 mmol/L (137-145)
[2018-06-28 10:44] LABS: ANION GAP 9 (5-19); BLOOD UREA NITROGEN 14 mg/dL (7-20); CALCIUM 10.4 mg/dL (8.4-10.2); CARBON DIOXIDE 15 mmol/L (22-30); CHLORIDE 101 mmol/L (98-107); GLUCOSE 126 mg/dL (75-110); POTASSIUM 3.7 mmol/L (3.6-5.0); SODIUM 124.7 mmol/L (137-145)
--- NOTE | 2018-06-28 10:57 | EKG REPORT ---
SEVERITY:- NORMAL ECG - SINUS RHYTHM : Confirmed by: Milagro Hook 28-Jun-2018 10:57:08
--- NOTE | 2018-06-28 11:25 | RADIOLOGY REPORT (SQ) ---
EXAM DESCRIPTION: CHEST SINGLE VIEW COMPLETED DATE/TIME: 06/28/2018 11:07 am REASON FOR STUDY: cough COMPARISON: None. EXAM PARAMETERS: NUMBER OF VIEWS: One view. TECHNIQUE: Single frontal radiographic view of the chest acquired. RADIATION DOSE: NA LIMITATIONS: None. FINDINGS: LUNGS AND PLEURA: No opacities, masses or pneumothorax. No pleural effusion. MEDIASTINUM AND HILAR STRUCTURES: No masses. Contour normal. HEART AND VASCULAR STRUCTURES: Heart normal in size. Normal vasculature. BONES: No acute findings. HARDWARE: None in the chest. OTHER: No other significant finding. IMPRESSION: NO ACUTE RADIOGRAPHIC FINDING IN THE CHEST. TECHNICAL DOCUMENTATION: JOB ID: [id number] [employer]- All Rights Reserved Reading location - IP/workstation name: [email or web address]
[2018-06-28] MEDS ORDERED: ONDANSETRON HCL INJ/PF 4 MG/2 ML SDV IV ONE (15:30)
[2018-06-28 15:43] LABS: ANION GAP 11 (5-19); BLOOD UREA NITROGEN 16 mg/dL (7-20); CALCIUM 10.3 mg/dL (8.4-10.2); CARBON DIOXIDE 17 mmol/L (22-30); CHLORIDE 98 mmol/L (98-107); GLUCOSE 119 mg/dL (75-110); POTASSIUM 3.3 mmol/L (3.6-5.0); SODIUM 125.5 mmol/L (137-145)
[2018-06-28] MEDS: NORMAL SALINE 1000 ML 1,000 ML IV PRN (15:50)
--- NOTE | 2018-06-28 16:34 | PDOC CONSULTATION ---
Consultation Consult Date: 06/28/18 Consult reason:: HORACIO History of Present Illness Admission Date/PCP: 06/27/18 23:22 GUALBERTO FERNANDEZ PA-C History of Present Illness: SANDRA FLORENTINO is a 87 year old female with an unremarkable past medical history was admitted with history of progressive weakness/diarrhea/orthostasis of 2-3 weeks duration. I am seeing her in the ICU with her daughter by the bedside. Patient is very awake alert and oriented and able to give me a good history. She says she has been having a loose watery stools especially worse at night now been going on for 2-3 weeks. However that said, she has been taking Imodium in the daytime. She denies any history of abdominal pains or bloody stools, nausea vomiting, fever or chills.She has not been on any antibiotics for the last many months. She recalls having eaten a salad couple of days prior to this beginning of this diarrhea in the [place]. Daughter also recalls that many other members of the [employer] who had eaten the same salad also had similar complaints but was much short-lived. The patient has been taking about 82- 90 cc of fluids on a daily basis but unable to eat much because of her severe diarrhea with loss of appetite.She has been experiencing progressive and severe orthostasis the last few days prior to her admission. However no history of presyncope or focal deficits or loss of consciousness. Evaluations in the ER revealed that she was hypotensive and her sodium was in the low 120s. She was evaluated for C. difficile which was negative. During her transfer in a wheelchair she however had brief episode of petit mal seizures according to her daughter who is a retired nurse. Soon after that she was begun on 3% saline and repeat sodium at the moment is up to 124. She is complaining of cramps in the lower extremities. No abdominal cramps. No other pains in anywhere else in the body. No history of any headaches focal deficits.She does not take any prescription medications. She states she has hyperlipidemia but not been taking any medications. She takes some [id number] supplements like flaxseeds and vitamins. Past Medical History Cardiac Medical History: Reports: Hyperlipidemia Denies: Myocardial Infarction Pulmonary Medical History: Reports: None Denies: Asthma EENT Medical History: Reports: None Neurological Medical History: Reports: None Denies: Seizures Endocrine Medical History: Reports: None Complications of Diabetes: Reports: None Renal/ Medical History: Reports: None Malignancy Medical History: Reports: None GI Medical History: Reports: None Denies: Hepatitis, Hiatal Hernia Musculoskeltal Medical History: Reports: None Skin Medical History: Reports: None Psychiatric Medical History: Reports: None Traumatic Medical History: Reports: None Infectious Medical History: Reports: None Past Surgical History Past Surgical History: Reports: Hysterectomy Denies: Mastectomy, Pacemaker Social History Lives with: Family Smoking Status: Never Smoker Frequency of Alcohol Use: None Drugs: None - Advance Directive Resuscitation Status: Full Code Family History Parental Family History Reviewed: No Children Family History Reviewed: No Sibling(s) Family History Reviewed.: No Medication/Allergy Home Medications: Ascorbic Acid [Vitamin C 500 mg Tablet] 500 mg PO DAILY 12/12/16 Calcium Carbonate/Vitamin D3 [Calcium 500 + Vit D Caplet] 1 each PO DAILY 12/12/16 Flaxseed Oil [Flax Seed Oil] 1,000 mg PO DAILY 12/12/16 Glucosamine Sulfate Dipot Chlr [Glucosamine] 1,000 mg PO DAILY 12/12/16 Multivitamin [Multivitamins] 1 each PO DAILY 12/12/16 [place]-3 Fatty Acids/Fish Oil [Fish Oil 300 Mg Softgel] 1 each PO DAILY 12/12/16 [place]'s Wort 150 mg PO DAILY 12/12/16 Ubidecarenone/Vit E Acet [Co Q-10 100 mg Softgel] 1 each PO DAILY 06/28/18 Allergies/Adverse Reactions: morphine Adverse Reaction (Verified 06/27/18 18:02) Nausea Review of Systems Constitutional: PRESENT: anorexia, fatigue, weakness, weight loss. ABSENT: chills, fever(s), headache(s), night sweats Nose, Mouth, and Throat: ABSENT: mouth pain, sore throat, vertigo Cardiovascular: ABSENT: chest pain, dyspnea on exertion, edema, orthropnea, palpitations Respiratory: ABSENT: cough, dyspnea, hemoptysis Gastrointestinal: PRESENT: bloating, diarrhea, nausea. ABSENT: abdominal pain, coffee ground emesis, dysphagia, heartburn, hematemesis, hematochezia, vomiting Genitourinary: ABSENT: dysuria, hematuria Musculoskeletal: ABSENT: back pain, deformity, joint swelling Integumentary: ABSENT: erythema, lesions, pruritus, rash Neurological: PRESENT: dizziness. ABSENT: abnormal gait, abnormal movements, abnormal speech, confusion, convulsions, focal weakness, frequent falls, lack of coordination Psychiatric: ABSENT: anxiety, depression, hallucinations Endocrine: ABSENT: heat intolerance Hematologic/Lymphatic: ABSENT: easy bleeding, easy bruising, lymphadenopathy Physical Exam Vital Signs: Temp Pulse Resp BP Pulse Ox 97.9 F 83 14 101/50 L 92 06/28/18 10:00 06/28/18 10:00 06/28/18 14:15 06/28/18 14:15 06/28/18 14:15 Intake & Output 06/27/18 06/28/18 06/29/18 06:59 06:59 06:59 Intake Total 150 Output Total 300 175 Balance -300 -25 Weight 61.2 kg General appearance: PRESENT: no acute distress, cooperative Eye exam: PRESENT: conjunctiva pink, EOMI, PERRLA. ABSENT: scleral icterus Ear exam: PRESENT: normal external ear exam Mouth exam: PRESENT: neck supple. ABSENT: moist Neck exam: ABSENT: lymphadenopathy, meningismus, tenderness, thyromegaly, tracheal deviation Respiratory exam: PRESENT: clear to auscultation [place]. ABSENT: crackles Cardiovascular exam: PRESENT: +S1, +S2 GI/Abdominal exam: PRESENT: normal bowel sounds, soft. ABSENT: organomegaly, tenderness Extremities exam: ABSENT: pedal edema Neurological exam: PRESENT: alert, awake, oriented to person, oriented to place, oriented to time Psychiatric exam: PRESENT: appropriate affect Skin exam: PRESENT: dry. ABSENT: cyanosis, erythema, jaundice, mottled Results Laboratory Results: 06/28/18 06:46 06/28/18 15:00 06/27/18 06/27/18 06/27/18 20:57 20:57 20:57 WBC 7.4 RBC 4.12 Hgb 13.1 Hct 37.5 MCV 91 MCH 31.8 MCHC 34.8 RDW 13.3 Plt Count 338 Seg Neutrophils % 65.0 Lymphocytes % 20.3 Monocytes % 13.0 Eosinophils % 1.1 Basophils % 0.6 Absolute Neutrophils 4.8 Absolute Lymphocytes 1.5 Absolute Monocytes 1.0 Absolute Eosinophils 0.1 Absolute Basophils 0.0 Sodium 122.3 L Potassium 3.6 Chloride 93 L Carbon Dioxide 20 L Anion Gap 9 BUN 8 Creatinine 0.42 L Est GFR ( Amer) > 60 Est GFR (Non-Af Amer) > 60 Glucose 110 Serum Osmolality Cancelled Calcium 10.2 Magnesium Total Bilirubin 0.5 AST 61 H ALT 49 Alkaline Phosphatase 84 Total Protein 6.9 Albumin 4.1 TSH Urine Color Urine Appearance Urine pH Ur Specific [place] Urine Protein Urine Glucose (UA) Urine Ketones Urine Blood Urine Nitrite Ur Leukocyte Esterase Urine WBC (Auto) Urine RBC (Auto) Urine Osmolality Stool for White Cells 06/27/18 06/27/18 06/27/18 20:57 21:20 23:45 WBC RBC Hgb Hct MCV MCH MCHC RDW Plt Count Seg Neutrophils % Lymphocytes % Monocytes % Eosinophils % Basophils % Absolute Neutrophils Absolute Lymphocytes Absolute Monocytes Absolute Eosinophils Absolute Basophils Sodium Potassium Chloride Carbon Dioxide Anion Gap BUN Creatinine Est GFR ( Amer) Est GFR (Non-Af Amer) Glucose Serum Osmolality 249 L Calcium Magnesium Total Bilirubin AST ALT Alkaline Phosphatase Total Protein Albumin TSH 3.42 Urine Color Urine Appearance Urine pH Ur Specific [place] Urine Protein Urine Glucose (UA) Urine Ketones Urine Blood Urine Nitrite Ur Leukocyte Esterase Urine WBC (Auto) Urine RBC (Auto) Urine Osmolality Stool for White Cells NO WBCs SEEN 06/28/18 06/28/18 06/28/18 04:40 04:40 06:46 WBC 9.7 RBC 4.19 Hgb 13.4 Hct 38.2 MCV 91 MCH 32.0 MCHC 35.0 RDW 13.3 Plt Count 331 Seg Neutrophils % 89.4 H Lymphocytes % 5.2 L Monocytes % 5.2 Eosinophils % 0.1 Basophils % 0.1 Absolute Neutrophils 8.7 H Absolute Lymphocytes 0.5 Absolute Monocytes 0.5 Absolute Eosinophils 0.0 Absolute Basophils 0.0 Sodium Potassium Chloride Carbon Dioxide Anion Gap BUN Creatinine Est GFR ( Amer) Est GFR (Non-Af Amer) Glucose Serum Osmolality Calcium Magnesium Total Bilirubin AST ALT Alkaline Phosphatase Total Protein Albumin TSH Urine Color YELLOW Urine Appearance SLIGHTLY-CLOUDY Urine pH 6.0 Ur Specific [place] 1.006 Urine Protein 30 H Urine Glucose (UA) NEGATIVE Urine Ketones NEGATIVE Urine Blood SMALL H Urine Nitrite NEGATIVE Ur Leukocyte Esterase NEGATIVE Urine WBC (Auto) 4 Urine RBC (Auto) 2 Urine Osmolality 276 L Stool for White Cells 06/28/18 06/28/18 06/28/18 06:46 09:51 15:00 WBC RBC Hgb Hct MCV MCH MCHC RDW Plt Count Seg Neutrophils % Lymphocytes % Monocytes % Eosinophils % Basophils % Absolute Neutrophils Absolute Lymphocytes Absolute Monocytes Absolute Eosinophils Absolute Basophils Sodium 124.2 L 124.7 L 125.5 L Potassium 3.9 3.7 3.3 L Chloride 97 L 101 98 Carbon Dioxide 17 L 15 L 17 L Anion Gap 10 9 11 BUN 13 14 16 Creatinine 0.57 0.51 L 0.50 L Est GFR ( Amer) > 60 > 60 > 60 Est GFR (Non-Af Amer) > 60 > 60 > 60 Glucose 134 H 126 H 119 H Serum Osmolality Calcium 10.2 10.4 H 10.3 H Magnesium 1.8 Total Bilirubin AST ALT Alkaline Phosphatase Total Protein Albumin TSH Urine Color Urine Appearance Urine pH Ur Specific [place] Urine Protein Urine Glucose (UA) Urine Ketones Urine Blood Urine Nitrite Ur Leukocyte Esterase Urine WBC (Auto) Urine RBC (Auto) Urine Osmolality Stool for White Cells Impressions: Chest X-Ray 06/28/18 10:39 IMPRESSION: NO ACUTE RADIOGRAPHIC FINDING IN THE CHEST. Assessment & Plan - Diagnosis (1) Hypotension Plan: Patient is clinically dehydrated from her severe ongoing diarrhea of 2-3 weeks duration. She is severely volume depleted resulting in hypotension/orthostasis. Start on normal saline. Treat diarrhea accordingly. So far today for his admission she has not had much of her diarrhea which is encouraging. She is C. difficile negative. (2) Orthostasis Plan: See response to volume repletion. Advised precautions in the meanwhile. She has got a Quesada catheter which will therefore eliminate her getting up from bed to the bathroom. Notes she had an episode of seizures in the face of severe hypotension when she sat up in the ER. (3) Hypokalemia Plan: Start replacements. Orders placed. (4) Diarrhea Qualifiers: Diarrhea type: unspecified type Qualified Code(s): R19.7 - Diarrhea, unspecified Plan: Unknown etiology. Looks like many other people affected by the same dirty salad that was served in the [place]. She could have something like a salmonellosis. So far C. difficile is negative. Await further cultures of stool. (5) Generalized weakness Is this a current diagnosis for this admission?: Yes Plan: Secondary to her volume depletion/orthostasis with hypotension and electrolyte imbalances. Treat symptomatic/supportive. (6) Hyponatremia Is this a current diagnosis for this admission?: Yes Plan: Secondary to his large amounts of copious diarrhea and correction with hypotonic fluids. Agree with initial management of severe hyponatremia with 3% saline which corrected just a few milliequivalents. But at this moment I think volume repletion along with isotonic solution is more important. Will monitor carefully. Keep the correction to less than 10 make milliequivalents per 24 hours given the chronicity of her illness.
[2018-06-28] MEDS: POTASSI CL 20 MEQ/50 ML RIDER 20 MEQ/50 ML RTUPB IV SCH ×2 (17:18→20:32)
--- NOTE | 2018-06-28 18:05 | PDOC PROGRESS REPORT ---
Subjective Progress Note for:: 06/28/18 Subjective:: This is an 87 yr old female with a PMH of hyperlipidemia and is also taking multiple supplements who was admitted for symptomatic hyponatremia. She had an initial sodium of 117 from an outpaitent BMP and was 122 upon presentation. She had a possible seizure in the ER as well. She was given hypertonic saline on admission. No acute event overnight. Sjhe denies acute complaint. She has hearing difficulty as she does not have her hearing aids with her but she appears to be coherent and is at her baseline mentation this morning. Family mentions she has been having watery diarrhea in the past 3 weeks. She has not had diarrhea so far since last night in the ICU. Patient says she drinks 2 cups of coffee at breakfast, a cup of tea at lunch and 2 cups of coffee at night. She says she drinks water between 500 cc to less than 1L/day although it appears she reported of drinking way more on admission. Reason For Visit: HYPONATREMIA Physical Exam Vital Signs: Temp Pulse Resp BP Pulse Ox 97.9 F 83 16 120/56 L 94 06/28/18 10:00 06/28/18 10:00 06/28/18 10:15 06/28/18 10:15 06/28/18 10:15 Intake & Output 06/27/18 06/28/18 06/29/18 06:59 06:59 06:59 Intake Total 150 Output Total 300 175 Balance -300 -25 Weight 134 lb 14.766 oz General appearance: PRESENT: no acute distress, well-developed, well-nourished Head exam: PRESENT: atraumatic, normocephalic Eye exam: PRESENT: conjunctiva pink, EOMI, PERRLA. ABSENT: scleral icterus Ear exam: PRESENT: normal external ear exam Mouth exam: PRESENT: moist, tongue midline Neck exam: ABSENT: carotid bruit, JVD, lymphadenopathy, thyromegaly Respiratory exam: PRESENT: clear to auscultation [place]. ABSENT: rales, rhonchi, wheezes Cardiovascular exam: PRESENT: RRR. ABSENT: diastolic murmur, rubs, systolic murmur Pulses: PRESENT: normal dorsalis pedis pul GI/Abdominal exam: PRESENT: normal bowel sounds, soft. ABSENT: distended, gu arding, mass, organolmegaly, rebound, tenderness Rectal exam: PRESENT: deferred Neurological exam: PRESENT: alert, awake, oriented to person, oriented to place, oriented to time, CN II-XII grossly intact. ABSENT: motor sensory deficit Results Laboratory Results: 06/28/18 06:46 06/28/18 09:51 06/27/18 06/27/18 06/27/18 20:57 20:57 20:57 WBC 7.4 RBC 4.12 Hgb 13.1 Hct 37.5 MCV 91 MCH 31.8 MCHC 34.8 RDW 13.3 Plt Count 338 Seg Neutrophils % 65.0 Lymphocytes % 20.3 Monocytes % 13.0 Eosinophils % 1.1 Basophils % 0.6 Absolute Neutrophils 4.8 Absolute Lymphocytes 1.5 Absolute Monocytes 1.0 Absolute Eosinophils 0.1 Absolute Basophils 0.0 Sodium 122.3 L Potassium 3.6 Chloride 93 L Carbon Dioxide 20 L Anion Gap 9 BUN 8 Creatinine 0.42 L Est GFR ( Amer) > 60 Est GFR (Non-Af Amer) > 60 Glucose 110 Serum Osmolality Cancelled Calcium 10.2 Total Bilirubin 0.5 AST 61 H ALT 49 Alkaline Phosphatase 84 Total Protein 6.9 Albumin 4.1 TSH Urine Color Urine Appearance Urine pH Ur Specific Neely Urine Protein Urine Glucose (UA) Urine Ketones Urine Blood Urine Nitrite Ur Leukocyte Esterase Urine WBC (Auto) Urine RBC (Auto) Urine Osmolality Stool for White Cells 06/27/18 06/27/18 06/27/18 20:57 21:20 23:45 WBC RBC Hgb Hct MCV MCH MCHC RDW Plt Count Seg Neutrophils % Lymphocytes % Monocytes % Eosinophils % Basophils % Absolute Neutrophils Absolute Lymphocytes Absolute Monocytes Absolute Eosinophils Absolute Basophils Sodium Potassium Chloride Carbon Dioxide Anion Gap BUN Creatinine Est GFR ( Amer) Est GFR (Non-Af Amer) Glucose Serum Osmolality 249 L Calcium Total Bilirubin AST ALT Alkaline Phosphatase Total Protein Albumin TSH 3.42 Urine Color Urine Appearance Urine pH Ur Specific Neely Urine Protein Urine Glucose (UA) Urine Ketones Urine Blood Urine Nitrite Ur Leukocyte Esterase Urine WBC (Auto) Urine RBC (Auto) Urine Osmolality Stool for White Cells NO WBCs SEEN 06/28/18 06/28/18 06/28/18 04:40 04:40 06:46 WBC 9.7 RBC 4.19 Hgb 13.4 Hct 38.2 MCV 91 MCH 32.0 MCHC 35.0 RDW 13.3 Plt Count 331 Seg Neutrophils % 89.4 H Lymphocytes % 5.2 L Monocytes % 5.2 Eosinophils % 0.1 Basophils % 0.1 Absolute Neutrophils 8.7 H Absolute Lymphocytes 0.5 Absolute Monocytes 0.5 Absolute Eosinophils 0.0 Absolute Basophils 0.0 Sodium Potassium Chloride Carbon Dioxide Anion Gap BUN Creatinine Est GFR ( Amer) Est GFR (Non-Af Amer) Glucose Serum Osmolality Calcium Total Bilirubin AST ALT Alkaline Phosphatase Total Protein Albumin TSH Urine Color YELLOW Urine Appearance SLIGHTLY-CLOUDY Urine pH 6.0 Ur Specific [place] 1.006 Urine Protein 30 H Urine Glucose (UA) NEGATIVE Urine Ketones NEGATIVE Urine Blood SMALL H Urine Nitrite NEGATIVE Ur Leukocyte Esterase NEGATIVE Urine WBC (Auto) 4 Urine RBC (Auto) 2 Urine Osmolality 276 L Stool for White Cells 06/28/18 06/28/18 06:46 09:51 WBC RBC Hgb Hct MCV MCH MCHC RDW Plt Count Seg Neutrophils % Lymphocytes % Monocytes % Eosinophils % Basophils % Absolute Neutrophils Absolute Lymphocytes Absolute Monocytes Absolute Eosinophils Absolute Basophils Sodium 124.2 L 124.7 L Potassium 3.9 3.7 Chloride 97 L 101 Carbon Dioxide 17 L 15 L Anion Gap 10 9 BUN 13 14 Creatinine 0.57 0.51 L Est GFR ( Amer) > 60 > 60 Est GFR (Non-Af Amer) > 60 > 60 Glucose 134 H 126 H Serum Osmolality Calcium 10.2 10.4 H Total Bilirubin AST ALT Alkaline Phosphatase Total Protein Albumin TSH Urine Color Urine Appearance Urine pH Ur Specific Neely Urine Protein Urine Glucose (UA) Urine Ketones Urine Blood Urine Nitrite Ur Leukocyte Esterase Urine WBC (Auto) Urine RBC (Auto) Urine Osmolality Stool for White Cells Impressions: Chest X-Ray 06/28/18 10:39 IMPRESSION: NO ACUTE RADIOGRAPHIC FINDING IN THE CHEST. Assessment and Plan - Diagnosis (1) Hyponatremia Is this a current diagnosis for this admission?: Yes Plan: She has hypotonic hyponatremia. She appears euvolemic. Urine osm is low, urine sodium. Sodium has slightly improved. She does report of significant diarrhea. High caffeine intake and limited water intake is more supportive of sodium and water loss. Will consult nephrology for further opinion and recommendation. (2) Diarrhea Qualifiers: Diarrhea type: unspecified type Qualified Code(s): R19.7 - Diarrhea, unspecified Is this a current diagnosis for this admission?: Yes Plan: C diff has been negative. - Time Time Spent with patient: 15-24 minutes
[2018-06-28 19:58] LABS: ANION GAP 11 (5-19); BLOOD UREA NITROGEN 17 mg/dL (7-20); CALCIUM 10.4 mg/dL (8.4-10.2); CARBON DIOXIDE 15 mmol/L (22-30); CHLORIDE 102 mmol/L (98-107); GLUCOSE 120 mg/dL (75-110); POTASSIUM 3.4 mmol/L (3.6-5.0); SODIUM 127.7 mmol/L (137-145)
[2018-06-29] MEDS: HEPARIN SOD (PORCINE) 5,000 UNIT/ML 1 ML SYRINGE SUBCUT SCH ×3 (05:00→21:47)
[2018-06-29] MEDS: NORMAL SALINE 1000 ML 1,000 ML IV PRN ×2 (06:58→14:31)
[2018-06-29] MEDS ORDERED: ONDANSETRON HCL INJ/PF 4 MG/2 ML SDV IV ONE (07:00)
[2018-06-29 07:40] LABS: ALANINE AMINOTRANSFERASE 51 U/L (9-52); ALBUMIN 3.2 g/dL (3.5-5.0); ALKALINE PHOSPHATASE 78 U/L (38-126); ANION GAP 10 (5-19); ASPARTATE AMINO TRANSFERASE 44 U/L (14-36); BILIRUBIN,DIRECT 0.2 mg/dL (0.0-0.4); BILIRUBIN,TOTAL 0.3 mg/dL (0.2-1.3); BLOOD UREA NITROGEN 17 mg/dL (7-20); CALCIUM 9.7 mg/dL (8.4-10.2); CARBON DIOXIDE 16 mmol/L (22-30); CHLORIDE 105 mmol/L (98-107); GLUCOSE 125 mg/dL (75-110); POTASSIUM 3.6 mmol/L (3.6-5.0); SODIUM 130.5 mmol/L (137-145); TOTAL PROTEIN 5.6 g/dL (6.3-8.2)
[2018-06-29] MEDS ORDERED: DIPHENOXYLATE HCL/ATROP SULF 2.5-0.025 MG TABLET PO PRN (10:01)
--- NOTE | 2018-06-29 11:19 | RADIOLOGY REPORT (SQ) ---
EXAM DESCRIPTION: U/S RETROPERITON (RENAL/AORTA) COMPLETED DATE/TIME: 06/29/2018 11:00 am REASON FOR STUDY: strong family history of APKD COMPARISON: None. TECHNIQUE: Dynamic and static grayscale images acquired of the kidneys and bladder and recorded on P ACS. Additional selected color Doppler and spectral images recorded. LIMITATIONS: None. FINDINGS: RIGHT KIDNEY: Normal size. Normal echogenicity. No solid or suspicious masses. No hydronep hrosis. No calcifications. LEFT KIDNEY: Normal size. Normal echogenicity. No solid or suspicious masses. No hydronephrosis. No calcifications. BLADDER: No masses. OTHER FINDINGS: Incidental finding of a solid mass in the right lobe of the liver, measuring 3.7 x 4. 5 x 4.7 cm. IMPRESSION: 1. NORMAL RENAL AND BLADDER ULTRASOUND. 2. SOLID MASS IN THE RIGHT LOBE OF THE LIVER. THE LIVER IS NOT COMPLETELY EVALUATED. RECOMMEND FOLL OW-UP WITH CT OF THE ABDOMEN AND PELVIS TO MORE COMPLETELY EVALUATE THE LIVER FINDING WELL DETE RMINE IF ANY OTHER ABNORMAL FINDINGS ARE PRESENT. TECHNICAL DOCUMENTATION: JOB ID: [id number] [employer]- All Rights Reserved Reading location - IP/workstation name: [email or web address]
--- NOTE | 2018-06-29 12:34 | PDOC PROGRESS REPORT ---
Subjective Progress Note for:: 06/29/18 Subjective:: This is an 87 yr old female with a PMH of hyperlipidemia and is also taking multiple supplements who was admitted for symptomatic hyponatremia. She had an initial sodium of 117 from an outpaitent BMP and was 122 upon presentation. She had a possible seizure in the ER as well. She was given hypertonic saline on admission. 06/28: She denies acute complaint. She has hearing difficulty as she does not have her hearing aids with her but she appears to be coherent and is at her baseline mentation this morning. Family mentions she has been having watery diarrhea in the past 3 weeks. She has not had diarrhea so far since last night in the ICU. Patient says she drinks 2 cups of coffee at breakfast, a cup of tea at lunch and 2 cups of coffee at night. She says she drinks water between 500 cc to less than 1L/day although it appears she reported of drinking way more on admission. 06/29: No acute event overnight. She feels better today and is at her baseline. Sodium has also improved with normal saline. She did have loose stools this morning. Renal US revealed a solid mass on the liver. Reason For Visit: HYPONATREMIA Physical Exam Vital Signs: Temp Pulse Resp BP Pulse Ox 98.5 F 73 18 117/51 L 97 06/28/18 23:00 06/29/18 07:00 06/28/18 23:00 06/28/18 23:00 06/28/18 23:00 Intake & Output 06/28/18 06/29/18 06/30/18 06:59 06:59 06:59 Intake Total 1250 Output Total 300 1075 Balance -300 175 Weight 134 lb 14.766 oz 139 lb 12.369 oz General appearance: PRESENT: no acute distress, well-developed, well-nourished Head exam: PRESENT: atraumatic, normocephalic Eye exam: PRESENT: conjunctiva pink, EOMI, PERRLA. ABSENT: scleral icterus Ear exam: PRESENT: normal external ear exam Mouth exam: PRESENT: moist, tongue midline Neck exam: ABSENT: carotid bruit, JVD, lymphadenopathy, thyromegaly Respiratory exam: PRESENT: clear to auscultation [place]. ABSENT: rales, rhonchi, wheezes Cardiovascular exam: PRESENT: RRR. ABSENT: diastolic murmur, rubs, systolic murmur Pulses: PRESENT: normal dorsalis pedis pul GI/Abdominal exam: PRESENT: normal bowel sounds, soft. ABSENT: distended, guarding, mass, organolmegaly, rebound, tenderness Rectal exam: PRESENT: deferred Neurological exam: PRESENT: alert, awake, oriented to person, oriented to place, oriented to time, oriented to situation, CN II-XII grossly intact. ABSENT: motor sensory deficit Results Laboratory Results: 06/28/18 06:46 06/29/18 06:50 06/28/18 06/28/18 06/29/18 15:00 19:27 06:50 Sodium 125.5 L 127.7 L 130.5 L Potassium 3.3 L 3.4 L 3.6 Chloride 98 102 105 Carbon Dioxide 17 L 15 L 16 L Anion Gap 11 11 10 BUN 16 17 17 Creatinine 0.50 L 0.52 0.52 Est GFR ( Amer) > 60 > 60 > 60 Est GFR (Non-Af Amer) > 60 > 60 > 60 Glucose 119 H 120 H 125 H Calcium 10.3 H 10.4 H 9.7 Magnesium 1.8 1.8 Total Bilirubin 0.3 AST 44 H ALT 51 Alkaline Phosphatase 78 Total Protein 5.6 L Albumin 3.2 L Impressions: Chest X-Ray 06/28/18 10:39 IMPRESSION: NO ACUTE RADIOGRAPHIC FINDING IN THE CHEST. Renal Ultrasound 06/29/18 00:00 IMPRESSION: 1. NORMAL RENAL AND BLADDER ULTRASOUND. 2. SOLID MASS IN THE RIGHT LOBE OF THE LIVER. THE LIVER IS NOT COMPLETELY EVALUATED. RECOMMEND FOLLOW-UP WITH CT OF THE ABDOMEN AND PELVIS TO MORE COMPLETELY EVALUATE THE LIVER FINDING WELL DETERMINE IF ANY OTHER ABNORMAL FINDINGS ARE PRESENT. Assessment and Plan - Diagnosis (1) Hyponatremia Is this a current diagnosis for this admission?: Yes Plan: She has hypotonic hyponatremia. She appears euvolemic. Urine osm is low, urine sodium. Sodium has slightly improved. She does report of significant diarrhea. High caffeine intake and limited water intake is more supportive of sodium and water loss. Will consult nephrology for further opinion and recommendation. 06/29: Sodium has improved to 130. Continue normal saline. (2) Diarrhea Qualifiers: Diarrhea type: unspecified type Qualified Code(s): R19.7 - Diarrhea, unspecified Is this a current diagnosis for this admission?: Yes Plan: C diff has been negative. No stool WBCs. Continue IV fluids. (3) Liver mass Is this a current diagnosis for this admission?: Yes Plan: Incidental finding of solid mass on the liver on US. Will order a CT to further evaluate mass. - Time Time Spent with patient: 25-34 minutes
--- NOTE | 2018-06-29 15:21 | RADIOLOGY REPORT (SQ) ---
EXAM DESCRIPTION: CT ABD/PELVIS NO ORAL OR IV COMPLETED DATE/TIME: 06/29/2018 3:01 pm REASON FOR STUDY: ?liver mass on US COMPARISON: Renal ultrasound dated 06/29/2018. TECHNIQUE: CT scan of the abdomen and pelvis performed without intravenous or oral contrast. Images reviewed with lung, soft tissue, and bone windows. Reconstructed coronal and sagittal MPR images revi ewed. All images stored on PACS. All CT scanners at this facility use dose modulation, iterative reconstruction, and/or weight based d osing when appropriate to reduce radiation dose to as low as reasonably achievable (ALARA). [facility]: Dose Right [facility]: CareDose [facility]: Dose Right [facility]: Teradose 4D [facility]: Proxly RADIATION DOSE: CT Rad equipment meets quality standard of care and radiation dose reduction techniq ues were employed. CTDIvol: 5.3 mGy. DLP: 285 mGy-cm.mGy. LIMITATIONS: None. FINDINGS: LOWER CHEST: Partially calcified rounded mass in the subpleural posterior right lower lobe measuring 3.5 x 4.5 cm. NON-CONTRASTED LIVER, SPLEEN, ADRENALS: Evaluation limited by lack of IV contrast. There are scatter ed low-attenuation lesions in the liver most consistent with cysts, the largest in the lateral right lobe measuring just under 3 cm. There is an ill-defined low-attenuation lesion in the inferior right lobe measuring 3.5 x 5 cm. Average Hounsfield units approximately 40 with the adjacent hepatic pare nchyma measuring approximately 50. PANCREAS: No masses. No peripancreatic inflammatory changes. GALLBLADDER: No identified stones by CT criteria. No inflammatory changes to suggest cholecystitis. RIGHT KIDNEY AND URETER: No suspicious masses. Assessment limited by lack of IV contrast. No signif icant calcifications. No hydronephrosis or hydroureter. LEFT KIDNEY AND URETER: No suspicious masses. Assessment limited by lack of IV contrast. No signifi cant calcifications. No hydronephrosis or hydroureter. AORTA AND RETROPERITONEUM: No aneurysm. No retroperitoneal masses or adenopathy. BOWEL AND PERITONEAL CAVITY: Fluid in the small bowel and colon. Mild small bowel dilation. No obvi ous masses or inflammatory changes. No free fluid. APPENDIX: Not visualized. PELVIS, BLADDER, AND ABDOMINAL WALL:No abnormal masses. No free fluid. Bladder normal. BONES: No significant findings. OTHER: No other significant finding. IMPRESSION: 1. THERE ARE A FEW SCATTERED CYSTS IN THE LIVER. IN THE INFERIOR RIGHT LOWER LOBE THERE IS A SOLID L ESION, SOMEWHAT DIFFICULT TO CHARACTERIZE ON NONCONTRAST IMAGING. IF FEASIBLE WOULD RECOMMEND A A CO NTRASTED CT OR MRI FOR MORE COMPLETE EVALUATION. 2. PARTIALLY CALCIFIED ROUNDED MASS IN THE SUBPLEURAL POSTERIOR RIGHT LOWER LOBE. THIS COULD REPRESE NT ROUND ATELECTASIS ASSOCIATED WITH A CALCIFIED PLEURAL PLAQUE. MALIGNANT PROCESS CANNOT BE EXCLUDE D. 3. FLUID IN THE SMALL BOWEL AND COLON WITH MILD SMALL BOWEL DILATION, POSSIBLY MILD ILEUS. NO FINDIN GS TO SUGGEST OBSTRUCTION. 4. NO OTHER SIGNIFICANT FINDINGS IN THE ABDOMEN OR PELVIS. COMMENT: Quality ID # [id number]: Final reports with documentation of one or more dose reduction techniques (e.g., Automated exposure control, adjustment of the mA and/or kV according to patient size, use of iterative reconstruction technique) TECHNICAL DOCUMENTATION: JOB ID: [id number] [employer]- All Rights Reserved Reading location - IP/workstation name: [email or web address]
--- NOTE | 2018-06-29 16:41 | PDOC PROGRESS REPORT ---
Subjective Progress Note for:: 06/29/18 Reason For Visit: Patient seen today. Generally feels better but for fatigue. Labs and medications were reviewed with the patient. Sodium starting to coming along nicely to around 130 at the moment. She still continues to have intermittent diarrhea especially when she stands up as per patient. No history of any orthostasis. Physical Exam Vital Signs: Temp Pulse Resp BP Pulse Ox 98.5 F 73 16 129/69 H 94 06/29/18 07:49 06/29/18 14:00 06/29/18 12:40 06/29/18 11:43 06/29/18 12:40 Intake & Output 06/28/18 06/29/18 06/30/18 06:59 06:59 06:59 Intake Total 1250 944 Output Total 300 1075 Balance -300 175 944 Weight 61.2 kg 63.4 kg General appearance: PRESENT: no acute distress Respiratory exam: PRESENT: clear to auscultation [place]. ABSENT: crackles Cardiovascular exam: PRESENT: +S1, +S2 GI/Abdominal exam: PRESENT: normal bowel sounds, soft. ABSENT: organomegaly, tenderness Extremities exam: ABSENT: pedal edema Neurological exam: PRESENT: alert, awake, oriented to person, oriented to place Psychiatric exam: PRESENT: appropriate affect Results Laboratory Results: 06/28/18 06:46 06/29/18 06:50 06/28/18 06/29/18 19:27 06:50 Sodium 127.7 L 130.5 L Potassium 3.4 L 3.6 Chloride 102 105 Carbon Dioxide 15 L 16 L Anion Gap 11 10 BUN 17 17 Creatinine 0.52 0.52 Est GFR ( Amer) > 60 > 60 Est GFR (Non-Af Amer) > 60 > 60 Glucose 120 H 125 H Calcium 10.4 H 9.7 Magnesium 1.8 Total Bilirubin 0.3 AST 44 H ALT 51 Alkaline Phosphatase 78 Total Protein 5.6 L Albumin 3.2 L 06/27/18 21:20 Stool - Stool - Final 06/27/18 21:20 Stool - Stool Stool Culture - Final Impressions: Chest X-Ray 06/28/18 10:39 IMPRESSION: NO ACUTE RADIOGRAPHIC FINDING IN THE CHEST. Renal Ultrasound 06/29/18 00:00 IMPRESSION: 1. NORMAL RENAL AND BLADDER ULTRASOUND. 2. SOLID MASS IN THE RIGHT LOBE OF THE LIVER. THE LIVER IS NOT COMPLETELY EVALUATED. RECOMMEND FOLLOW-UP WITH CT OF THE ABDOMEN AND PELVIS TO MORE COMPLETELY EVALUATE THE LIVER FINDING WELL DETERMINE IF ANY OTHER ABNORMAL FINDINGS ARE PRESENT. Abdomen/Pelvis CT 06/29/18 12:30 IMPRESSION: 1. THERE ARE A FEW SCATTERED CYSTS IN THE LIVER. IN THE INFERIOR RIGHT LOWER LOBE THERE IS A SOLID LESION, SOMEWHAT DIFFICULT TO CHARACTERIZE ON NONCONTRAST IMAGING. IF FEASIBLE WOULD RECOMMEND A A CONTRASTED CT OR MRI FOR MORE COMPLETE EVALUATION. 2. PARTIALLY CALCIFIED ROUNDED MASS IN THE SUBPLEURAL POSTERIOR RIGHT LOWER LOBE. THIS COULD REPRESENT ROUND ATELECTASIS ASSOCIATED WITH A CALCIFIED PLEU RAL PLAQUE. MALIGNANT PROCESS CANNOT BE EXCLUDED. 3. FLUID IN THE SMALL BOWEL AND COLON WITH MILD SMALL BOWEL DILATION, POSSIBLY MILD ILEUS. NO FINDINGS TO SUGGEST OBSTRUCTION. 4. NO OTHER SIGNIFICANT FINDINGS IN THE ABDOMEN OR PELVIS. Assessment & Plan - Diagnosis (1) Hyponatremia Is this a current diagnosis for this admission?: Yes Plan: Gradually improving and currently at 130 which is very appropriate for her speed of correction. (2) Hypotension Plan: Resolved with appropriate fluid repletion. (3) Orthostasis Plan: Resolved. (4) Hypokalemia Plan: Markedly improved. (5) Diarrhea Qualifiers: Diarrhea type: unspecified type Qualified Code(s): R19.7 - Diarrhea, unspecified Is this a current diagnosis for this admission?: Yes Plan: As per hospitalist. (6) Generalized weakness Is this a current diagnosis for this admission?: Yes Plan: Status quo.Incidental finding of liver mass on ultrasound and is being worked up by hospitalist.
[2018-06-29] MEDS: DIPHENOXYLATE HCL/ATROP SULF 2.5-0.025 MG TABLET PO PRN (17:33)
[2018-06-30] MEDS: HEPARIN SOD (PORCINE) 5,000 UNIT/ML 1 ML SYRINGE SUBCUT SCH ×3 (05:28→21:40)
[2018-06-30 06:28] LABS: ANION GAP 8 (5-19); BLOOD UREA NITROGEN 16 mg/dL (7-20); CALCIUM 9.4 mg/dL (8.4-10.2); CARBON DIOXIDE 15 mmol/L (22-30); CHLORIDE 107 mmol/L (98-107); GLUCOSE 123 mg/dL (75-110); SODIUM 130.1 mmol/L (137-145)
[2018-06-30 06:33] LABS: POTASSIUM 2.9 mmol/L (3.6-5.0)
[2018-06-30] MEDS: DIPHENOXYLATE HCL/ATROP SULF 2.5-0.025 MG TABLET PO PRN ×2 (06:49→14:51)
[2018-06-30] MEDS: NORMAL SALINE 1000 ML 1,000 ML IV PRN ×2 (06:49→15:53)
[2018-06-30] MEDS ORDERED: POTASSIUM CHLORIDE 10 MEQ CAPSULE.ER PO ONE (07:00)
[2018-06-30] MEDS: POTASSIUM CHLORIDE 20 MEQ/50 ML RTU IV SCH ×2 (07:47→10:06)
[2018-06-30] MEDS: ONDANSETRON HCL INJ/PF 4 MG/2 ML SDV IV PRN ×2 (08:26→20:17)
[2018-06-30] MEDS ORDERED: LOPERAMIDE HCL 2 MG CAPSULE PO PRN (09:47)
[2018-06-30] MEDS: POTASSIUM CHLORIDE 20 MEQ/50 ML RTU IV ONE ×2 (10:02→12:06)
--- NOTE | 2018-06-30 13:33 | PDOC CONSULTATION ---
Consultation Consult Date: 06/30/18 Attending physician:: SHERRI MARTIN Consult reason:: Concern of liver lesions and lung lesion History of Present Illness Admission Date/PCP: 06/27/18 23:22 GUALBERTO FERNANDEZ PA-C Patient complains of: Weakness, diarrhea History of Present Illness: SANDRA FLORENTINO is a 87 year old female who presented with a 3-week history of severe diarrhea and weakness, ultimately she became very weak and presented and patient was profoundly hyponatremic, she has been given aggressive hydration with full workup, ultimately she had a renal ultrasound done which indicated some concern of liver lesions, this is followed by a CT of the abdomen pelvis without contrast, this indicated areas in the liver concerning for metastasis as well as a calcified area in the lung. I looked at the images myself, there are certainly liver cysts noted in some of the other areas are hard to characterize, radiologist suggested MRI of the liver this is pending now. Past Medical History Cardiac Medical History: Reports: Hyperlipidema Denies: Myocardial Infarction, Hypertension Pulmonary Medical History: Reports: None Denies: Asthma EENT Medical History: Reports: None Neurological Medical History: Reports: None Denies: Seizures Endocrine Medical History: Reports: None Renal/ Medical History: Reports: None Malignancy Medical History: Reports: None GI Medical History: Reports: None Denies: Hepatitis, Hiatal Hernia Musculoskeltal Medical History: Reports: None Skin Medical History: Reports: None Psychiatric Medical History: Reports: None Traumatic Medical History: Reports: None Hematology: Denies: Anemia, Sickle Cell Disease Infectious Medical History: Reports: None Past Surgical History Past Surgical History: Reports: Hysterectomy Denies: Amputation, Mastectomy, Pacemaker Social History Lives with: Family Smoking Status: Never Smoker Frequency of Alcohol Use: None Drugs: None - Advance Directive Resuscitation Status: Full Code Family History Family History: Hypertension Parental Family History Reviewed: Yes Children Family History Reviewed: Yes Sibling(s) Family History Reviewed.: Yes Medication/Allergy Home Medications: Ascorbic Acid [Vitamin C 500 mg Tablet] 500 mg PO DAILY 12/12/16 Calcium Carbonate/Vitamin D3 [Calcium 500 + Vit D Caplet] 1 each PO DAILY 12/12/16 Flaxseed Oil [Flax Seed Oil] 1,000 mg PO DAILY 12/12/16 Glucosamine Sulfate Dipot Chlr [Glucosamine] 1,000 mg PO DAILY 12/12/16 Multivitamin [Multivitamins] 1 each PO DAILY 12/12/16 [employer]-3 Fatty Acids/Fish Oil [Fish Oil 300 Mg Softgel] 1 each PO DAILY 12/12/16 Leslie's Wort 150 mg PO DAILY 12/12/16 Ubidecarenone/Vit E Acet [Co Q-10 100 mg Softgel] 1 each PO DAILY 06/28/18 Allergies/Adverse Reactions: morphine Adverse Reaction (Verified 06/27/18 18:02) Nausea Review of Systems Constitutional: ABSENT: chills, fever(s), headache(s), weight gain, weight loss Eyes: ABSENT: visual disturbances Ears: ABSENT: hearing changes Cardiovascular: ABSENT: chest pain, dyspnea on exertion, edema, orthropnea, palpitations Respiratory: ABSENT: cough, hemoptysis Gastrointestinal: ABSENT: abdominal pain, constipation, diarrhea, hematemesis, hematochezia, nausea, vomiting Genitourinary: ABSENT: dysuria, hematuria Musculoskeletal: ABSENT: joint swelling Integumentary: ABSENT: rash, wounds Neurological: ABSENT: abnormal gait, abnormal speech, confusion, dizziness, focal weakness, syncope Psychiatric: ABSENT: anxiety, depression, homidical ideation, suicidal ideation Endocrine: ABSENT: cold intolerance, heat intolerance, polydipsia, polyuria Hematologic/Lymphatic: ABSENT: easy bleeding, easy bruising Physical Exam Vital Signs: Temp Pulse Resp BP Pulse Ox 97.7 F 74 17 131/52 H 99 06/29/18 23:13 06/30/18 02:00 06/29/18 23:13 06/29/18 23:13 06/29/18 23:13 Intake & Output 06/29/18 06/30/18 07/01/18 06:59 06:59 06:59 Intake Total 1250 1944 100 Output Total 1075 Balance 175 1944 100 Weight 63.4 kg 68.6 kg General appearance: PRESENT: no acute distress, well-developed, well-nourished Head exam: PRESENT: atraumatic, normocephalic Eye exam: PRESENT: conjunctiva pink, EOMI, PERRLA. ABSENT: scleral icterus Ear exam: PRESENT: normal external ear exam Mouth exam: PRESENT: moist, tongue midline Neck exam: ABSENT: carotid bruit, JVD, lymphadenopathy, thyromegaly Respiratory exam: PRESENT: clear to auscultation [place]. ABSENT: rales, rhonchi, wheezes Cardiovascular exam: PRESENT: RRR. ABSENT: diastolic murmur, rubs, systolic murmur Pulses: PRESENT: normal dorsalis pedis pul Vascular exam: PRESENT: normal capillary refill GI/Abdominal exam: PRESENT: normal bowel sounds, soft. ABSENT: distended, guarding, mass, organolmegaly, rebound, tenderness Rectal exam: PRESENT: deferred Extremities exam: PRESENT: full ROM. ABSENT: calf tenderness, clubbing, pedal edema Neurological exam: PRESENT: alert, awake, oriented to person, oriented to place, oriented to time, oriented to situation, CN II-XII grossly intact. ABSENT: motor sensory deficit Psychiatric exam: PRESENT: appropriate affect, normal mood. ABSENT: homicidal ideation, suicidal ideation Skin exam: PRESENT: dry, intact, warm. ABSENT: cyanosis, rash Results Laboratory Results: 06/28/18 06:46 06/30/18 05:22 06/30/18 06/30/18 05:22 05:22 Sodium 130.1 L Potassium 2.9 L* Chloride 107 Carbon Dioxide 15 L Anion Gap 8 BUN 16 Creatinine 0.48 L Est GFR ( Amer) > 60 Est GFR (Non-Af Amer) > 60 Glucose 123 H Calcium 9.4 Magnesium 1.8 06/27/18 21:20 Stool - Stool - Final 06/27/18 21:20 Stool - Stool Stool Culture - Final Impressions: Chest X-Ray 06/28/18 10:39 IMPRESSION: NO ACUTE RADIOGRAPHIC FINDING IN THE CHEST. Renal Ultrasound 06/29/18 00:00 IMPRESSION: 1. NORMAL RENAL AND BLADDER ULTRASOUND. 2. SOLID MASS IN THE RIGHT LOBE OF THE LIVER. THE LIVER IS NOT COMPLETELY EVALUATED. RECOMMEND FOLLOW-UP WITH CT OF THE ABDOMEN AND PELVIS TO MORE COMPLETELY EVALUATE THE LIVER FINDING WELL DETERMINE IF ANY OTHER ABNORMAL FINDINGS ARE PRESENT. Abdomen/Pelvis CT 06/29/18 12:30 IMPRESSION: 1. THERE ARE A FEW SCATTERED CYSTS IN THE LIVER. IN THE INFERIOR RIGHT LOWER LOBE THERE IS A SOLID LESION, SOMEWHAT DIFFICULT TO CHARACTERIZE ON NONCONTRAST IMAGING. IF FEASIBLE WOULD RECOMMEND A A CONTRASTED CT OR MRI FOR MORE COMPLETE EVALUATION. 2. PARTIALLY CALCIFIED ROUNDED MASS IN THE SUBPLEURAL POSTERIOR RIGHT LOWER LOBE. THIS COULD REPRESENT ROUND ATELECTASIS ASSOCIATED WITH A CALCIFIED PLEURAL PLAQUE. MALIGNANT PROCESS CANNOT BE EXCLUDED. 3. FLUID IN THE SMALL BOWEL AND COLON WITH MILD SMALL BOWEL DILATION, POSSIBLY MILD ILEUS. NO FINDINGS TO SUGGEST OBSTRUCTION. 4. NO OTHER SIGNIFICANT FINDINGS IN THE ABDOMEN OR PELVIS. Status: Image reviewed by me Assessment & Plan - Diagnosis (1) Liver mass Is this a current diagnosis for this admission?: Yes Plan: Awaiting MRI, may all be cysts. I had a long discussion with the patient and the daughter both of whom were OR nurses, they are very realistic about her prognosis and the way she is doing. But she was quite functional lives alone at home and actually takes care of her who is 85 years old with dementia. We will talk further with her based upon the MRI results. - Time Time Spent: Greater than 70 Minutes - Inpatient Certification Based on my medical assessment, after consideration of the patient's comorbidities, presenting symptoms, or acuity I expect that the services needed warrant INPATIENT care.: Yes I certify that my determination is in accordance with my understanding of Medicare's requirements for reasonable and necessary INPATIENT services [42 CFR 412.3e].: Yes Medical Necessity: Need For IV Fluids, Need for Surgery, Risk of Complication if Not Cared For in Hospital
--- NOTE | 2018-06-30 13:43 | PDOC PROGRESS REPORT ---
Subjective Progress Note for:: 06/30/18 Subjective:: This is an 87 yr old female with a PMH of hyperlipidemia and is also taking multiple supplements who was admitted for symptomatic hyponatremia. She had an initial sodium of 117 from an outpaitent BMP and was 122 upon presentation. She had a possible seizure in the ER as well. She was given hypertonic saline on admission. 06/28: She denies acute complaint. She has hearing difficulty as she does not have her hearing aids with her but she appears to be coherent and is at her baseline mentation this morning. Family mentions she has been having watery diarrhea in the past 3 weeks. She has not had diarrhea so far since last night in the ICU. Patient says she drinks 2 cups of coffee at breakfast, a cup of tea at lunch and 2 cups of coffee at night. She says she drinks water between 500 cc to less than 1L/day although it appears she reported of drinking way more on admission. 06/29: She feels better today and is at her baseline. Sodium has also improved with normal saline. She did have loose stools this morning. Renal US revealed a solid mass on the liver. 06/30: No acute event overnight. She had 3 loose watery stools this morning. She appears comfortable. Denies abdominal pain. She is going for MRI today. Reason For Visit: HYPONATREMIA Physical Exam Vital Signs: Temp Pulse Resp BP Pulse Ox 97.7 F 74 17 131/52 H 99 06/29/18 23:13 06/30/18 02:00 06/29/18 23:13 06/29/18 23:13 06/29/18 23:13 Intake & Output 06/29/18 06/30/18 07/01/18 06:59 06:59 06:59 Intake Total 1250 1944 100 Output Total 1075 Balance 175 1944 100 Weight 139 lb 12.369 oz 151 lb 3.794 oz General appearance: PRESENT: no acute distress, well-developed, well-nourished Head exam: PRESENT: atraumatic, normocephalic Eye exam: PRESENT: conjunctiva pink, EOMI, PERRLA. ABSENT: scleral icterus Ear exam: PRESENT: normal external ear exam Mouth exam: PRESENT: moist, tongue midline Neck exam: ABSENT: carotid bruit, JVD, lymphadenopathy, thyromegaly Respiratory exam: PRESENT: clear to auscultation [place]. ABSENT: rales, rhonchi, wheezes Cardiovascular exam: PRESENT: RRR. ABSENT: diastolic murmur, rubs, systolic murmur Pulses: PRESENT: normal dorsalis pedis pul GI/Abdominal exam: PRESENT: normal bowel sounds, soft. ABSENT: distended, guarding, mass, organolmegaly, rebound, tenderness Rectal exam: PRESENT: deferred Extremities exam: PRESENT: full ROM. ABSENT: calf tenderness, clubbing, pedal edema Neurological exam: PRESENT: alert, awake, oriented to person, oriented to place, oriented to time, oriented to situation, CN II-XII grossly intact. ABSENT: motor sensory deficit Results Laboratory Results: 06/28/18 06:46 06/30/18 05:22 06/30/18 06/30/18 05:22 05:22 Sodium 130.1 L Potassium 2.9 L* Chloride 107 Carbon Dioxide 15 L Anion Gap 8 BUN 16 Creatinine 0.48 L Est GFR ( Amer) > 60 Est GFR (Non-Af Amer) > 60 Glucose 123 H Calcium 9.4 Magnesium 1.8 06/27/18 21:20 Stool - Stool - Final 06/27/18 21:20 Stool - Stool Stool Culture - Final Impressions: Chest X-Ray 06/28/18 10:39 IMPRESSION: NO ACUTE RADIOGRAPHIC FINDING IN THE CHEST. Renal Ultrasound 06/29/18 00:00 IMPRESSION: 1. NORMAL RENAL AND BLADDER ULTRASOUND. 2. SOLID MASS IN THE RIGHT LOBE OF THE LIVER. THE LIVER IS NOT COMPLETELY EVALUATED. RECOMMEND FOLLOW-UP WITH CT OF THE ABDOMEN AND PELVIS TO MORE COMPLETELY EVALUATE THE LIVER FINDING WELL DETERMINE IF ANY OTHER ABNORMAL FINDINGS ARE PRESENT. Abdomen/Pelvis CT 06/29/18 12:30 IMPRESSION: 1. THERE ARE A FEW SCATTERED CYSTS IN THE LIVER. IN THE INFERIOR RIGHT LOWER LOBE THERE IS A SOLID LESION, SOMEWHAT DIFFICULT TO CHARACTERIZE ON NONCONTRAST IMAGING. IF FEASIBLE WOULD RECOMMEND A A CONTRASTED CT OR MRI FOR MORE COMPLETE EVALUATION. 2. PARTIALLY CALCIFIED ROUNDED MASS IN THE SUBPLEURAL POSTERIOR RIGHT LOWER LOBE. THIS COULD REPRESENT ROUND ATELECTASIS ASSOCIATED WITH A CALCIFIED PLEURAL PLAQUE. MALIGNANT PROCESS CANNOT BE EXCLUDED. 3. FLUID IN THE SMALL BOWEL AND COLON WITH MILD SMALL BOWEL DILATION, POSSIBLY MILD ILEUS. NO FINDINGS TO SUGGEST OBSTRUCTION. 4. NO OTHER SIGNIFICANT FINDINGS IN THE ABDOMEN OR PELVIS. Assessment and Plan - Diagnosis (1) Hyponatremia Is this a current diagnosis for this admission?: Yes Plan: She has hypotonic hyponatremia. She appears euvolemic. Urine osm is low, urine sodium. Sodium has slightly improved. She does report of significant diarrhea. High caffeine intake and limited water intake is more supportive of sodium and water loss. Will consult nephrology for further opinion and recommendation. 06/29: Sodium has improved to 130. Continue normal saline. 06/30: Sodium stable at 130. She cotninues to have diarrhea. Increase normal saline to 125 cc/hr. (2) Diarrhea Qualifiers: Diarrhea type: unspecified type Qualified Code(s): R19.7 - Diarrhea, unspecified Is this a current diagnosis for this admission?: Yes Plan: C. diff has been negative. No stool WBCs. Continue IV fluids. 06/30: Stool culture negative. Increase IV fluids. Will add Immodium. (3) Liver mass Is this a current diagnosis for this admission?: Yes Plan: Incidental finding of solid mass on the liver on US. She is scheduled for an MRI of the abdomen today. - Time Time Spent with patient: 25-34 minutes
--- NOTE | 2018-06-30 14:24 | RADIOLOGY REPORT (SQ) ---
EXAM DESCRIPTION: MRI ABDOMEN COMBO COMPLETED DATE/TIME: 06/30/2018 1:20 pm REASON FOR STUDY: per radio recs, hepatic lesions on CT COMPARISON: CT from 06/29/2018. TECHNIQUE: T1, T1 in and out of phase, T2 fat sat, T1 post gadolinium sequences with attention to th e liver. CONTRAST TYPE AND DOSE: 20 mL [place]. RENAL FUNCTION: GFR > 60. LIMITATIONS: None. FINDINGS: LIVER: Generally normal size and contours. There are several well-circumscribed hyperinte nse T2 lesions without enhancement consistent with cysts. The largest is in the right lobe posterior liver dome and measures 2.7 cm. In the inferior right hepatic lobe segment 6, corresponding to the CT detected lesion, there is a min imally hyperintense T2 mass which shows enhancement. This lesion is not consistent with a cyst or he mangioma. At least 2 additional similar lesions in segment 5 which are smaller. These measure less than 2 cm and also are somewhat hypoenhancing but non cystic and not consistent with hemangiomas. SPLEEN: Normal size. No focal lesions. PANCREAS: No masses. No adjacent inflammation or peripancreatic fluid collections. Pancreatic duct no t dilated. GALLBLADDER: Surgically absent. ADRENAL GLANDS: No significant masses or asymmetry. RIGHT KIDNEY AND URETER: No masses. No hydronephrosis. LEFT KIDNEY AND URETER: No masses. No hydronephrosis. AORTA AND VESSELS: No aneurysm. No dissection. Renal arteries, SMA, celiac without stenosis. RETROPERITONEUM: No retroperitoneal adenopathy, hemorrhage or masses. BOWEL: Gastric distention. Otherwise normal. Incomplete assessment. ABDOMINAL WALL AND PERITONEUM: No hernias. No free fluid. BONES: No acute or significant findings. OTHER: Heterogeneous calcified mass in the right lung base, better seen on CT. IMPRESSION: 1. Suspicious masses in the right hepatic lobe as above. The dominant lesion in the inferior aspect of the right lobe is amenable to CT-guided biopsy if clinically desired. TECHNICAL DOCUMENTATION: JOB ID: [id number] [employer]- All Rights Reserved Reading location - IP/workstation name: [email or web address]
[2018-07-01] MEDS: DIPHENOXYLATE HCL/ATROP SULF 2.5-0.025 MG TABLET PO PRN (01:00)
[2018-07-01] MEDS: ONDANSETRON HCL INJ/PF 4 MG/2 ML SDV IV PRN ×3 (01:16→11:40)
[2018-07-01] MEDS: HEPARIN SOD (PORCINE) 5,000 UNIT/ML 1 ML SYRINGE SUBCUT SCH ×3 (05:12→21:04)
[2018-07-01] MEDS: NORMAL SALINE 1000 ML 1,000 ML IV PRN ×3 (06:05→21:01)
[2018-07-01 08:33] LABS: ALANINE AMINOTRANSFERASE 42 U/L (9-52); ALBUMIN 2.4 g/dL (3.5-5.0); ALKALINE PHOSPHATASE 52 U/L (38-126); ASPARTATE AMINO TRANSFERASE 26 U/L (14-36); BILIRUBIN,DIRECT 0.2 mg/dL (0.0-0.4); BILIRUBIN,TOTAL 0.3 mg/dL (0.2-1.3); BLOOD UREA NITROGEN 11 mg/dL (7-20); CALCIUM 9.2 mg/dL (8.4-10.2); CARBON DIOXIDE 17 mmol/L (22-30); CHLORIDE 108 mmol/L (98-107); GLUCOSE 135 mg/dL (75-110); POTASSIUM 3.2 mmol/L (3.6-5.0); TOTAL PROTEIN 4.4 g/dL (6.3-8.2)
[2018-07-01 08:35] LABS: ANION GAP 5 (5-19)
[2018-07-01] MEDS ORDERED: CHOLESTYRAMINE/ASPARTAME 4 GM PACKET PO ONE (11:00)
--- NOTE | 2018-07-01 11:24 | PDOC PROGRESS REPORT ---
Subjective Progress Note for:: 07/01/18 Subjective:: Diarrhea continued, p.o. intake still poor, had a long discussion with family reviewing imaging. Reason For Visit: HYPONATREMIA Physical Exam Vital Signs: Temp Pulse Resp BP Pulse Ox 97.9 F 70 15 142/47 H 100 07/01/18 07:51 07/01/18 07:51 07/01/18 07:51 07/01/18 07:51 07/01/18 07:51 Intake & Output 06/30/18 07/01/18 07/02/18 06:59 06:59 06:59 Intake Total 1943 2964 Balance 1943 2964 Weight 68.6 kg 68.6 kg General appearance: PRESENT: no acute distress, well-developed, well-nourished Head exam: PRESENT: atraumatic, normocephalic Eye exam: PRESENT: conjunctiva pink, EOMI, PERRLA. ABSENT: scleral icterus Ear exam: PRESENT: normal external ear exam Mouth exam: PRESENT: moist, tongue midline Neck exam: ABSENT: carotid bruit, JVD, lymphadenopathy, thyromegaly Respiratory exam: PRESENT: clear to auscultation [place]. ABSENT: rales, rhonchi, wheezes Cardiovascular exam: PRESENT: RRR. ABSENT: diastolic murmur, rubs, systolic m urmur Pulses: PRESENT: normal dorsalis pedis pul Vascular exam: PRESENT: normal capillary refill GI/Abdominal exam: PRESENT: normal bowel sounds, soft. ABSENT: distended, guarding, mass, organolmegaly, rebound, tenderness Rectal exam: PRESENT: deferred Extremities exam: PRESENT: full ROM. ABSENT: calf tenderness, clubbing, pedal edema Neurological exam: PRESENT: alert, awake, oriented to person, oriented to place, oriented to time, oriented to situation, CN II-XII grossly intact. ABSENT: motor sensory deficit Psychiatric exam: PRESENT: appropriate affect, normal mood. ABSENT: homicidal ideation, suicidal ideation Skin exam: PRESENT: dry, intact, warm. ABSENT: cyanosis, rash Results Laboratory Results: 06/28/18 06:46 07/01/18 07:30 07/01/18 07:30 Sodium 130.0 L Potassium 3.2 L Chloride 108 H Carbon Dioxide 17 L Anion Gap 5 BUN 11 Creatinine 0.49 L Est GFR ( Amer) > 60 Est GFR (Non-Af Amer) > 60 Glucose 135 H Calcium 9.2 Magnesium 1.7 Total Bilirubin 0.3 AST 26 ALT 42 Alkaline Phosphatase 52 Total Protein 4.4 L Albumin 2.4 L 06/27/18 21:20 Stool - Stool - Final 06/27/18 21:20 Stool - Stool Stool Culture - Final Impressions: Chest X-Ray 06/28/18 10:39 IMPRESSION: NO ACUTE RADIOGRAPHIC FINDING IN THE CHEST. Renal Ultrasound 06/29/18 00:00 IMPRESSION: 1. NORMAL RENAL AND BLADDER ULTRASOUND. 2. SOLID MASS IN THE RIGHT LOBE OF THE LIVER. THE LIVER IS NOT COMPLETELY EVALUATED. RECOMMEND FOLLOW-UP WITH CT OF THE ABDOMEN AND PELVIS TO MORE COMPLETELY EVALUATE THE LIVER FINDING WELL DETERMINE IF ANY OTHER ABNORMAL FINDINGS ARE PRESENT. Abdomen/Pelvis CT 06/29/18 12:30 IMPRESSION: 1. THERE ARE A FEW SCATTERED CYSTS IN THE LIVER. IN THE INFERIOR RIGHT LOWER LOBE THERE IS A SOLID LESION, SOMEWHAT DIFFICULT TO CHARACTERIZE ON NONCONTRAST IMAGING. IF FEASIBLE WOULD RECOMMEND A A CONTRASTED CT OR MRI FOR MORE COMPLETE EVALUATION. 2. PARTIALLY CALCIFIED ROUNDED MASS IN THE SUBPLEURAL POSTERIOR RIGHT LOWER LOBE. THIS COULD REPRESENT ROUND ATELECTASIS ASSOCIATED WITH A CALCIFIED PLEURAL PLAQUE. MALIGNANT PROCESS CANNOT BE EXCLUDED. 3. FLUID IN THE SMALL BOWEL AND COLON WITH MILD SMALL BOWEL DILATION, POSSIBLY MILD ILEUS. NO FINDINGS TO SUGGEST OBSTRUCTION. 4. NO OTHER SIGNIFICANT FINDINGS IN THE ABDOMEN OR PELVIS. Abdomen MRI 06/30/18 00:00 IMPRESSION: 1. Suspicious masses in the right hepatic lobe as above. The dominant lesion in the inferior aspect of the right lobe is amenable to CT-guided biopsy if clinically desired. Assessment & Plan - Diagnosis (1) Liver mass Is this a current diagnosis for this admission?: Yes Plan: Reviewed report,The right side of the liver does have lesions worrisome for potentially metastatic disease. I had a long discussion with patient and archie poe about this. It may be tied together in some part with the diarrhea. She has not had a colonoscopy done ever per hospitalist team, they are getting get gastroenterology involved tomorrow to consider both colonoscopy as well as EGD. I recommended that we go ahead and plan for a liver biopsy. This will help delineate whether there is truly metastatic disease or not. It could be potentially something like a carcinoid tumor causing the diarrhea or we could have a colonic mass with liver metastasis. I will order CT of the chest without contrast. I also placed liver biopsy order. - Time Time Spent with patient: 35 or more minutes Disposition: I will be out of town starting tomorrow, I will make Dr. Smith aware of her sit uation and she will follow - Inpatient Certification Based on my medical assessment, after consideration of the patient's comorbidities, presenting symptoms, or acuity I expect that the services needed warrant INPATIENT care.: Yes I certify that my determination is in accordance with my understanding of Medicare's requirements for reasonable and necessary INPATIENT services [42 CFR 412.3e].: Yes Medical Necessity: Need For IV Fluids, Need for Surgery, Risk of Complication if Not Cared For in Hospital
[2018-07-01] MEDS: POTASSI CL 20 MEQ/50 ML RIDER 20 MEQ/50 ML RTUPB IV SCH ×3 (11:26→15:21)
[2018-07-01] MEDS: PANTOPRAZOLE SODIUM 40 MG VIAL IV SCH (11:27)
[2018-07-01] MEDS: DICYCLOMINE HCL 10 MG CAPSULE PO PRN (11:37)
--- NOTE | 2018-07-01 11:49 | PDOC PROGRESS REPORT ---
Subjective Progress Note for:: 07/01/18 Subjective:: This is an 87 yr old female with a PMH of hyperlipidemia and is also taking multiple supplements who was admitted for symptomatic hyponatremia. She had an initial sodium of 117 from an outpaitent BMP and was 122 upon presentation. She had a possible seizure in the ER as well. She was given hypertonic saline on admission. 06/28: She denies acute complaint. She has hearing difficulty as she does not have her hearing aids with her but she appears to be coherent and is at her baseline mentation this morning. Family mentions she has been having watery diarrhea in the past 3 weeks. She has not had diarrhea so far since last night in the ICU. Patient says she drinks 2 cups of coffee at breakfast, a cup of tea at lunch and 2 cups of coffee at night. She says she drinks water between 500 cc to less than 1L/day although it appears she reported of drinking way more on admission. 06/29: She feels better today and is at her baseline. Sodium has also improved with normal saline. She did have loose stools this morning. Renal US revealed a solid mass on the liver. 06/30: She had 3 loose watery stools this morning. She appears comfortable. Denies abdominal pain. She is going for MRI today. 07/01: Patient had persistent loose stools and had 2 episodes last night and another 2 episodes this morning. She was hypokalemic again this morning. Patient and daughter shares she was in [facility] several years ago and expressed concern about parasite. Patient also apparently has never had a colonoscopy done in before. MRI shows suspicious lesion on the liver. Reason For Visit: HYPONATREMIA Physical Exam Vital Signs: Temp Pulse Resp BP Pulse Ox 97.9 F 70 15 142/47 H 100 07/01/18 07:51 07/01/18 07:51 07/01/18 07:51 07/01/18 07:51 07/01/18 07:51 Intake & Output 06/30/18 07/01/18 07/02/18 06:59 06:59 06:59 Intake Total 1943 2964 Balance 1943 2964 Weight 151 lb 3.794 oz 151 lb 3.794 oz General appearance: PRESENT: no acute distress, well-developed, well-nourished Head exam: PRESENT: atraumatic, normocephalic Eye exam: PRESENT: conjunctiva pink, EOMI, PERRLA. ABSENT: scleral icterus Ear exam: PRESENT: normal external ear exam Mouth exam: PRESENT: moist, tongue midline Neck exam: ABSENT: carotid bruit, JVD, lymphadenopathy, thyromegaly Respiratory exam: PRESENT: clear to auscultation [place]. ABSENT: rales, rhonchi, wheezes Cardiovascular exam: PRESENT: RRR. ABSENT: diastolic murmur, rubs, systolic murmur Pulses: PRESENT: normal dorsalis pedis pul GI/Abdominal exam: PRESENT: normal bowel sounds, soft. ABSENT: distended, guarding, mass, organolmegaly, rebound, tenderness Rectal exam: PRESENT: deferred Neurological exam: PRESENT: alert, awake, oriented to person, oriented to place, oriented to time, oriented to situation, CN II-XII grossly intact. ABSENT: motor sensory deficit Results Laboratory Results: 06/28/18 06:46 07/01/18 07:30 07/01/18 07:30 Sodium 130.0 L Potassium 3.2 L Chloride 108 H Carbon Dioxide 17 L Anion Gap 5 BUN 11 Creatinine 0.49 L Est GFR ( Amer) > 60 Est GFR (Non-Af Amer) > 60 Glucose 135 H Calcium 9.2 Magnesium 1.7 Total Bilirubin 0.3 AST 26 ALT 42 Alkaline Phosphatase 52 Total Protein 4.4 L Albumin 2.4 L 06/27/18 21:20 Stool - Stool - Final 06/27/18 21:20 Stool - Stool Stool Culture - Final Impressions: Chest X-Ray 06/28/18 10:39 IMPRESSION: NO ACUTE RADIOGRAPHIC FINDING IN THE CHEST. Renal Ultrasound 06/29/18 00:00 IMPRESSION: 1. NORMAL RENAL AND BLADDER ULTRASOUND. 2. SOLID MASS IN THE RIGHT LOBE OF THE LIVER. THE LIVER IS NOT COMPLETELY EVALUATED. RECOMMEND FOLLOW-UP WITH CT OF THE ABDOMEN AND PELVIS TO MORE COMPLETELY EVALUATE THE LIVER FINDING WELL DETERMINE IF ANY OTHER ABNORMAL FINDINGS ARE PRESENT. Abdomen/Pelvis CT 06/29/18 12:30 IMPRESSION: 1. THERE ARE A FEW SCATTERED CYSTS IN THE LIVER. IN THE INFERIOR RIGHT LOWER LOBE THERE IS A SOLID LESION, SOMEWHAT DIFFICULT TO CHARACTERIZE ON NONCONTRAST IMAGING. IF FEASIBLE WOULD RECOMMEND A A CONTRASTED CT OR MRI FOR MORE COMPLETE EVALUATION. 2. PARTIALLY CALCIFIED ROUNDED MASS IN THE SUBPLEURAL POSTERIOR RIGHT LOWER LOBE. THIS COULD REPRESENT ROUND ATELECTASIS ASSOCIATED WITH A CALCIFIED PLEURAL PLAQUE. MALIGNANT PROCESS CANNOT BE EXCLUDED. 3. FLUID IN THE SMALL BOWEL AND COLON WITH MILD SMALL BOWEL DILATION, POSSIBLY MILD ILEUS. NO FINDINGS TO SUGGEST OBSTRUCTION. 4. NO OTHER SIGNIFICANT FINDINGS IN THE ABDOMEN OR PELVIS. Abdomen MRI 06/30/18 00:00 IMPRESSION: 1. Suspicious masses in the right hepatic lobe as above. The dominant lesion in the inferior aspect of the right lobe is amenable to CT-guided biopsy if clinically desired. Assessment and Plan - Diagnosis (1) Hyponatremia Is this a current diagnosis for this admission?: Yes Plan: She has hypotonic hyponatremia. She appears euvolemic. Urine osm is low, urine sodium. Sodium has slightly improved. She does report of significant diarrhea. High caffeine intake and limited water intake is more supportive of sodium and water loss. Will consult nephrology for further opinion and recommendation. 06/29: Sodium has improved to 130. Continue normal saline. 06/30: Sodium stable at 130. She continues to have diarrhea. Increase normal saline to 125 cc/hr. 07/01: Sodium remain stable at 130. Increase normal saline to 150 cc/hr as she continues to have persistent diarrhea. Differentials at this time include volume depletion from diarrhea as she continues to have diarrhea. Hyponatremia work-up is not very consistent with dehydration alone. In the setting of possible malignancy, a questionable lung nodule, SIADH is also a possibility hence the equivocal results of work-up. (2) Diarrhea Qualifiers: Diarrhea type: unspecified type Qualified Code(s): R19.7 - Diarrhea, unspecified Is this a current diagnosis for this admission?: Yes Plan: Chronic diarrhea. This has been going on for 4 weeks now. C. diff has been negative. No stool WBCs. Also sent for ova and parasites as she says she lived in [facility] for some time. Continue IV fluids. 06/30: Stool culture negative. Increase IV fluids. Will add Immodium. 07/01: Discussed she may need colonoscopy as well. (3) Liver mass Is this a current diagnosis for this admission?: Yes Plan: Incidental finding of solid mass on the liver on US. 06/30: She is scheduled for an MRI of the abdomen today. 07/01: Discussed with oncology who has recommended biopsy. Discussed plan of care with patient and family in length. - Time Time Spent with patient: 35 or more minutes
[2018-07-01 12:07] LABS: INTERNATIONAL RATION (INR) 0.99; PROTHROMBIN TIME 13.6 SEC (11.4-15.4)
[2018-07-01] MEDS ORDERED: DEXTROSE 40% GEL 15 GM TUBE PO PRN ×2 (14:50)
[2018-07-01] MEDS ORDERED: DEXTROSE 50%-WATER 25 GM/50 ML DISP.SYRIN IV PRN ×2 (14:50)
[2018-07-01] MEDS ORDERED: GLUCAGON,HUMAN RECOMB 1 MG INJ SUBCUT PRN (14:50)
--- NOTE | 2018-07-01 21:21 | RADIOLOGY REPORT (SQ) ---
EXAM DESCRIPTION: RadLex: CT CHEST WITHOUT IV CONTRAST CLINICAL HISTORY: 87 years Female; LUNG MASS TECHNIQUE: CT of the chest without contrast All CT scans at this facility use dose modulation, iterative reconstruction, and/or weight based dosing when appropriate to reduce radiation dose to as low as reasonably achievable. COMPARISON: No previous chest CT. CT abdomen 06/29/2018. MRI abdomen 06/30/2018.. FINDINGS: Chest: Lungs: Along the medial right lower pleural cavity there is a lesion 9.4 cm SI by 4.4 cm AP by 4.7 cm LR. The lesion abuts the pleura, but there is also some involvement of the medial right lower lobe. Multiple coarse calcifications extend along the medial portion of the lesion, along the parietal pleural side. However, there is a substantial part of the lesion that is soft tissue, along the visceral pleural side, involving the right lower lobe. The anterior medial margin of the lesion abuts a subsegmental bronchus. There is mild peripheral scarring in the lung apices bilaterally. No other calcified plaques are identified. No acute infiltrates. No pneumothorax or pleural effusion. No additional is pulmonary lesions. Mediastinum: No mediastinal mass or adenopathy. Calcific atherosclerotic plaque is seen along the aortic arch and descending thoracic aorta. No aortic aneurysm. Bones:No acute bone findings. Trace amount of fluid is seen over the surface of the liver. Liver: In segment 7 there is a 2.2 cm slightly hypodense lesion, incompletely characterized. In segment 4A there is an 8 mm slightly hypodense lesion. At the posterior lateral margin of segment 6 there is a 9 mm slightly hypodense lesion. Also see MRI abdomen report. The upper abdomen is incompletely visualized. IMPRESSION: 1. Medial right lower lobe mass, suspicious for mesothelioma arising in a calcified pleural plaque. Consider biopsy. 2. No acute pulmonary infiltrates. 3. Hepatic lesions, as seen on prior exam.
[2018-07-02] MEDS: NORMAL SALINE 1000 ML 1,000 ML IV PRN ×3 (03:42→20:29)
[2018-07-02] MEDS: HEPARIN SOD (PORCINE) 5,000 UNIT/ML 1 ML SYRINGE SUBCUT SCH ×3 (05:24→21:10)
[2018-07-02 05:42] LABS: INTERNATIONAL RATION (INR) 1.15; PROTHROMBIN TIME 15.3 SEC (11.4-15.4)
[2018-07-02 05:43] LABS: PARTIAL THROMBOPLASTIN TIME 29.9 SEC (23.5-35.8)
[2018-07-02 08:22] LABS: BLOOD UREA NITROGEN 5 mg/dL (7-20); CALCIUM 8.8 mg/dL (8.4-10.2); GLUCOSE 116 mg/dL (75-110); POTASSIUM 3.1 mmol/L (3.6-5.0)
[2018-07-02 08:28] LABS: ANION GAP 3 (5-19); CARBON DIOXIDE 17 mmol/L (22-30); CHLORIDE 108 mmol/L (98-107); SODIUM 127.9 mmol/L (137-145)
[2018-07-02] MEDS: PANTOPRAZOLE SODIUM 40 MG VIAL IV SCH (09:52)
[2018-07-02] MEDS ORDERED: CHOLESTYRAMINE/ASPARTAME 4 GM PACKET PO PRN (10:22)
[2018-07-02] MEDS ORDERED: POTASSIUM CHLORIDE 10 MEQ CAPSULE.ER PO ONE ×2 (10:30→13:30)
[2018-07-02] MEDS ORDERED: FENTANYL CITRATE INJ/PF 100 MCG/2 ML AMPUL ONE (11:12)
[2018-07-02] MEDS ORDERED: MIDAZOLAM 2 MG/2 ML INJ ONE (11:12)
[2018-07-02] MEDS: DICYCLOMINE HCL 10 MG CAPSULE PO PRN (12:40)
[2018-07-02] MEDS: POTASSI CL 20 MEQ/50 ML RIDER 20 MEQ/50 ML RTUPB IV SCH ×2 (12:50→15:39)
--- NOTE | 2018-07-02 13:20 | PDOC PROGRESS REPORT ---
Subjective Progress Note for:: 07/02/18 Subjective:: This is an 87 yr old female with a PMH of hyperlipidemia and is also taking multiple supplements who was admitted for symptomatic hyponatremia. She had an initial sodium of 117 from an outpaitent BMP and was 122 upon presentation. She had a possible seizure in the ER as well. She was given hypertonic saline on admission. 06/28: She denies acute complaint. She has hearing difficulty as she does not have her hearing aids with her but she appears to be coherent and is at her baseline mentation this morning. Family mentions she has been having watery diarrhea in the past 3 weeks. She has not had diarrhea so far since last night in the ICU. Patient says she drinks 2 cups of coffee at breakfast, a cup of tea at lunch and 2 cups of coffee at night. She says she drinks water between 500 cc to less than 1L/day although it appears she reported of drinking way more on admission. 06/29: She feels better today and is at her baseline. Sodium has also improved with normal saline. She did have loose stools this morning. Renal US revealed a solid mass on the liver. 06/30: She had 3 loose watery stools this morning. She appears comfortable. Denies abdominal pain. She is going for MRI today. 07/01: Patient had persistent loose stools and had 2 episodes last night and another 2 episodes this morning. She was hypokalemic again this morning. Patient and daughter shares she was in [facility] several years ago and expressed concern about parasite. Patient also apparently has never had a colonoscopy done in before. MRI shows suspicious lesion on the liver. 07/02: She had 2 loose stools this morning but says the Questran helped a lot the the diarrhea. She had hypokalemia at 3.1 again this morning. Sodium has decreased to 127 today. She is scheduled for a CT guided biopsy of her liver mass today. FOBT came back positive. Discussed with Dr. Terrazas over phone who has recommended scheduling her for colonoscopy tomorrow. She will be switched to clears and will be kept NPO post midnight. Reason For Visit: HYPONATREMIA Physical Exam Vital Signs: Temp Pulse Resp BP Pulse Ox 98.3 F 71 17 115/47 L 98 07/02/18 12:26 07/02/18 12:26 07/02/18 12:26 07/02/18 12:26 07/02/18 12:26 Intake & Output 07/01/18 07/02/18 07/03/18 06:59 06:59 06:59 Intake Total 2964 2443 935 Balance 2964 2443 935 Weight 151 lb 3.794 oz 151 lb 3.794 oz General appearance: PRESENT: no acute distress, well-developed, well-nourished Head exam: PRESENT: atraumatic, normocephalic Eye exam: PRESENT: conjunctiva pink, EOMI, PERRLA. ABSENT: scleral icterus Ear exam: PRESENT: normal external ear exam Mouth exam: PRESENT: moist, tongue midline Neck exam: ABSENT: carotid bruit, JVD, lymphadenopathy, thyromegaly Respiratory exam: PRESENT: clear to auscultation [place]. ABSENT: rales, rhonchi, wheezes Cardiovascular exam: PRESENT: RRR. ABSENT: diastolic murmur, rubs, systolic murmur Pulses: PRESENT: normal dorsalis pedis pul Vascular exam: PRESENT: normal capillary refill GI/Abdominal exam: PRESENT: normal bowel sounds, soft. ABSENT: distended, guarding, mass, organolmegaly, rebound, tenderness Rectal exam: PRESENT: deferred Extremities exam: PRESENT: full ROM. ABSENT: calf tenderness, clubbing, pedal edema Neurological exam: PRESENT: alert, awake, oriented to person, oriented to place, oriented to time, oriented to situation, CN II-XII grossly intact. ABSENT: motor sensory deficit Results Laboratory Results: 06/28/18 06:46 07/02/18 05:19 07/02/18 07/02/18 05:19 05:30 Sodium 127.9 L Potassium 3.1 L Chloride 108 H Carbon Dioxide 17 L Anion Gap 3 L BUN 5 L Creatinine 0.40 L Est GFR ( Amer) > 60 Est GFR (Non-Af Amer) > 60 Glucose 116 H Calcium 8.8 Stool Occult Blood POSITIVE 06/27/18 21:20 Stool - Stool - Final 06/27/18 21:20 Stool - Stool Stool Culture - Final NO SALMONELLA, SHIGELLA, CAMPYLOBACTER, OR E.COLI 0157 RECOVERED. NEGATIVE FOR SHIGA TOXINS 1&2. Impressions: Chest X-Ray 06/28/18 10:39 IMPRESSION: NO ACUTE RADIOGRAPHIC FINDING IN THE CHEST. Renal Ultrasound 06/29/18 00:00 IMPRESSION: 1. NORMAL RENAL AND BLADDER ULTRASOUND. 2. SOLID MASS IN THE RIGHT LOBE OF THE LIVER. THE LIVER IS NOT COMPLETELY JONNIE LUATED. RECOMMEND FOLLOW-UP WITH CT OF THE ABDOMEN AND PELVIS TO MORE COMPLETELY EVALUATE THE LIVER FINDING WELL DETERMINE IF ANY OTHER ABNORMAL FINDINGS ARE PRESENT. Abdomen/Pelvis CT 06/29/18 12:30 IMPRESSION: 1. THERE ARE A FEW SCATTERED CYSTS IN THE LIVER. IN THE INFERIOR RIGHT LOWER LOBE THERE IS A SOLID LESION, SOMEWHAT DIFFICULT TO CHARACTERIZE ON NONCONTRAST IMAGING. IF FEASIBLE WOULD RECOMMEND A A CONTRASTED CT OR MRI FOR MORE COMPLETE EVALUATION. 2. PARTIALLY CALCIFIED ROUNDED MASS IN THE SUBPLEURAL POSTERIOR RIGHT LOWER LOBE. THIS COULD REPRESENT ROUND ATELECTASIS ASSOCIATED WITH A CALCIFIED PLEURAL PLAQUE. MALIGNANT PROCESS CANNOT BE EXCLUDED. 3. FLUID IN THE SMALL BOWEL AND COLON WITH MILD SMALL BOWEL DILATION, POSSIBLY MILD ILEUS. NO FINDINGS TO SUGGEST OBSTRUCTION. 4. NO OTHER SIGNIFICANT FINDINGS IN THE ABDOMEN OR PELVIS. Abdomen MRI 06/30/18 00:00 IMPRESSION: 1. Suspicious masses in the right hepatic lobe as above. The dominant lesion in the inferior aspect of the right lobe is amenable to CT-guided biopsy if clinically desired. Chest CT 07/01/18 00:00 IMPRESSION: 1. Medial right lower lobe mass, suspicious for mesothelioma arising in a calcified pleural plaque. Consider biopsy. 2. No acute pulmonary infiltrates. 3. Hepatic lesions, as seen on prior exam. Assessment and Plan - Diagnosis (1) Hyponatremia Is this a current diagnosis for this admission?: Yes Plan: She has hypotonic hyponatremia. She appears euvolemic. Urine osm is low, urine sodium. Sodium has slightly improved. She does report of significant diarrhea. High caffeine intake and limited water intake is more supportive of sodium and water loss. Will consult nephrology for further opinion and recommendation. 06/29: Sodium has improved to 130. Continue normal saline. 06/30: Sodium stable at 130. She continues to have diarrhea. Increase normal saline to 125 cc/hr. 07/01: Sodium remain stable at 130. Increase normal saline to 150 cc/hr as she continues to have persistent diarrhea. Differentials at this time include volume depletion from diarrhea as she continues to have diarrhea. Hyponatremia work-up is not very consistent with dehydration alone. In the setting of possible malignancy, a questionable lung nodule, SIADH is also a possibility hence the equivocal results of work-up. 07/02: Sodium down to 127 today with continued diarrhea. Continue normal saline at 150 cc/hr. Will add Questran bid as she did say the single dose yesterday helped with the frequency and volume of diarrhea. (2) Liver mass Is this a current diagnosis for this admission?: Yes Plan: Incidental finding of solid mass on the liver on US. 06/30: She is scheduled for an MRI of the abdomen today. 07/01: Discussed with oncology who has recommended biopsy. Discussed plan of care with patient and family in length. 07/02: She is going for a CT guided liver biopsy today. (3) Diarrhea Qualifiers: Diarrhea type: unspecified type Qualified Code(s): R19.7 - Diarrhea, unspecified Is this a current diagnosis for this admission?: Yes Plan: Chronic diarrhea. This has been going on for 4 weeks now. C. diff has been negative. No stool WBCs. Also sent for ova and parasites as she says she lived in [facility] for some time. Continue IV fluids. 06/30: Stool culture negative. Increase IV fluids. Will add Immodium. 07/01: Discussed she may need colonoscopy as well. 07/02: She had 2 loose stools this morning but says the Questran helped a lot the the diarrhea. Discussed with Dr. Terrazas over phone who has recommended scheduling her for colonoscopy tomorrow. She will be switched to clears and will be kept NPO post midnight. (4) Hypokalemia Is this a current diagnosis for this admission?: Yes Plan: Potassium at 3.1 today. Replace with 40 meqs PO and 40 meqs IV. - Time Time Spent with patient: 25-34 minutes
--- NOTE | 2018-07-02 13:41 | PDOC PROGRESS REPORT ---
Subjective Progress Note for:: 07/02/18 Subjective:: Patient states that the questran greatly helped her diarrhea and she would like to have this every day. [facility]. No new complaints, but still unable to eat much and still with diarrhea and weakness. ROS: No chest pain or dsypnea. No dysuria. Reason For Visit: HYPONATREMIA Physical Exam Vital Signs: Temp Pulse Resp BP Pulse Ox 98.3 F 71 17 115/47 L 98 07/02/18 12:26 07/02/18 12:26 07/02/18 12:26 07/02/18 12:26 07/02/18 12:26 Intake & Output 07/01/18 07/02/18 07/03/18 06:59 06:59 06:59 Intake Total 2964 2443 935 Balance 2964 2443 935 Weight 68.6 kg 68.6 kg General appearance: PRESENT: well-developed, well-nourished Head exam: PRESENT: normocephalic Respiratory exam: PRESENT: unlabored Neurological exam: PRESENT: alert, awake, oriented to person, oriented to place, oriented to time, oriented to situation Psychiatric exam: PRESENT: appropriate affect Skin exam: PRESENT: normal color Results Laboratory Results: 06/28/18 06:46 07/02/18 05:19 07/02/18 07/02/18 05:19 05:30 Sodium 127.9 L Potassium 3.1 L Chloride 108 H Carbon Dioxide 17 L Anion Gap 3 L BUN 5 L Creatinine 0.40 L Est GFR ( Amer) > 60 Est GFR (Non-Af Amer) > 60 Glucose 116 H Calcium 8.8 Stool Occult Blood POSITIVE 06/27/18 21:20 Stool - Stool - Final 06/27/18 21:20 Stool - Stool Stool Culture - Final NO SALMONELLA, SHIGELLA, CAMPYLOBACTER, OR E.COLI 0157 RECOVERED. NEGATIVE FOR SHIGA TOXINS 1&2. Impressions: Chest X-Ray 06/28/18 10:39 IMPRESSION: NO ACUTE RADIOGRAPHIC FINDING IN THE CHEST. Renal Ultrasound 06/29/18 00:00 IMPRESSION: 1. NORMAL RENAL AND BLADDER ULTRASOUND. 2. SOLID MASS IN THE RIGHT LOBE OF THE LIVER. THE LIVER IS NOT COMPLETELY EVALUATED. RECOMMEND FOLLOW-UP WITH CT OF THE ABDOMEN AND PELVIS TO MORE COMPLETELY EVALUATE THE LIVER FINDING WELL DETERMINE IF ANY OTHER ABNORMAL FINDINGS ARE PRESENT. Abdomen/Pelvis CT 06/29/18 12:30 IMPRESSION: 1. THERE ARE A FEW SCATTERED CYSTS IN THE LIVER. IN THE INFERIOR RIGHT LOWER LOBE THERE IS A SOLID LESION, SOMEWHAT DIFFICULT TO CHARACTERIZE ON NONCONTRAST IMAGING. IF FEASIBLE WOULD RECOMMEND A A CONTRASTED CT OR MRI FOR MORE COMPLETE EVALUATION. 2. PARTIALLY CALCIFIED ROUNDED MASS IN THE SUBPLEURAL POSTERIOR RIGHT LOWER LOBE. THIS COULD REPRESENT ROUND ATELECTASIS ASSOCIATED WITH A CALCIFIED PLEURAL PLAQUE. MALIGNANT PROCESS CANNOT BE EXCLUDED. 3. FLUID IN THE SMALL BOWEL AND COLON WITH MILD SMALL BOWEL DILATION, POSSIBLY MILD ILEUS. NO FINDINGS TO SUGGEST OBSTRUCTION. 4. NO OTHER SIGNIFICANT FINDINGS IN THE ABDOMEN OR PELVIS. Abdomen MRI 06/30/18 00:00 IMPRESSION: 1. Suspicious masses in the right hepatic lobe as above. The dominant lesion in the inferior aspect of the right lobe is amenable to CT-guided biopsy if clinically desired. Chest CT 07/01/18 00:00 IMPRESSION: 1. Medial right lower lobe mass, suspicious for mesothelioma arising in a calcified pleural plaque. Consider biopsy. 2. No acute pulmonary infiltrates. 3. Hepatic lesions, as seen on prior exam. Assessment & Plan - Diagnosis (1) Diarrhea Qualifiers: Diarrhea type: unspecified type Qualified Code(s): R19.7 - Diarrhea, unspecified Is this a current diagnosis for this admission?: Yes Plan: Has been resistant to traditional treatments. Questran has helped. (2) Liver mass Is this a current diagnosis for this admission?: Yes Plan: For Biopsy today. Await path. - Plan Summary Plan Summary: I will check Lipase. Consider pancreatic enzymes for diarrhea if continues. I agree with plans for CT chest as well as colonoscopy. Further recommendations based on all above.
--- NOTE | 2018-07-02 15:29 | RADIOLOGY REPORT (SQ) ---
EXAM DESCRIPTION: CT BIOPSY LIVER COMPLETED DATE/TIME: 07/02/2018 11:54 am REASON FOR STUDY: Liver Mass COMPARISON: None. TECHNIQUE: After obtaining informed consent and explaining the risks and benefits of conscious sedat ion,the patient agreed to the procedure. The patient was brought to the CT suite and was placed supin e on the CT gurney. The patient was prepped and draped in the usual sterile fashion . Axial images w ere obtained for targeting of the inferior right lobe of the liver. An appropriate access site was se lected. IV conscious sedation was administered and physician direction by the registered nurse using 0.5 milligrams of Versed and 25 micrograms of fentanyl. Physiologic monitoring was provided before, d uring, and after sedation. The total sedation time was 30 minutes. Documentation face to face time, the performing proceduralist, spent monitoring the patient: [address] of the liver was performed to localize an approach for the right lobe liver biopsy. A percutaneous site was marked. Time out was performed. After skin prep and local lidocaine for skin and deep tissue anesthesia, a coaxial biopsy needle sys tem was used to obtain several cores of tissue from the right lobe of the liver. These were submitte d to the lab in formalin. No immediate postprocedure complications. Total of 14.[address] fluoro was used. 268 CT Fluoroscopic images were obtained and saved to PACS. All CT scanners at this facility use dose modulation, iterative reconstruction, and/or weight based d osing when appropriate to reduce radiation dose to as low as reasonably achievable (ALARA). [facility]: Dose Right [facility]: CareDose [facility]: Dose Right [facility]: Teradose 4D [facility]: MedGRC RADIATION DOSE: mGy. LIMITATIONS: None. FINDINGS: CT guided liver biopsy as detailed above. IMPRESSION: CT GUIDED RIGHT LOBE LIVER BIOPSY PERFORMED ABOVE. PATHOLOGY PENDING. NO IMMEDIATE COMPLICATIONS. COMMENT: Patient medication list reviewed:Yes- Quality ID# [id number]:Eligible professional attests to docu menting in the medical record they obtained, updated, or reviewed the patient's current medications.. Quality ID [id number]: Final reports for procedures using fluoroscopy that document radiation exposure venancio donna, or exposure time and number of fluorographic images (if radiation exposure indices are not avail able) TECHNICAL DOCUMENTATION: JOB ID: [id number] Quality ID # [id number]: Final reports with documentation of one or more dose reduction techniques (e.g., A utomated exposure control, adjustment of the mA and/or kV according to patient size, use of iterative reconstruction technique) 2010 [employer]- All Rights Reserved Reading location - IP/workstation name: [email or web address]
--- NOTE | 2018-07-02 15:39 | PDOC PROGRESS REPORT ---
Subjective Progress Note for:: 07/02/18 Subjective:: Patient had liver biopsy this morning. That was uneventful. She continues to have diarrhea and only treatment that works according to her is the Questran. The Lomotil and Zofran give her nausea. Her sodium level is slightly lower today associated with hypokalemia which is currently being replaced. She otherwise feels fine and does not have any other complaints. Reason For Visit: HYPONATREMIA Physical Exam Vital Signs: Temp Pulse Resp BP Pulse Ox 98.3 F 71 17 115/47 L 98 07/02/18 12:26 07/02/18 12:26 07/02/18 12:26 07/02/18 12:26 07/02/18 12:26 Intake & Output 07/01/18 07/02/18 07/03/18 06:59 06:59 06:59 Intake Total 2964 2443 935 Balance 2964 2443 935 Weight 68.6 kg 68.6 kg Exam: General appearance: PRESENT: no acute distress, cooperative, well-developed, well-nourished Head exam: PRESENT: atraumatic, normocephalic Eye exam: PRESENT: conjunctiva pale, PERRLA. ABSENT: scleral icterus Neck exam: ABSENT: JVD Respiratory exam: PRESENT: Diminished breath sounds. ABSENT: crackles, rales, r honchi, unlabored, wheezes Cardiovascular exam: PRESENT: Regular rate rhythm -+S1, +S2. Grade 3/6 systolic murmur GI/Abdominal exam: PRESENT: normal bowel sounds, soft. ABSENT: guarding, mass, tenderness Extremities exam: ABSENT: No edema Neurological exam: PRESENT: alert, awake, oriented to person, place and time. Skin exam: PRESENT: dry, warm, Cardiovascular exam: PRESENT: +S1, +S2 GI/Abdominal exam: PRESENT: normal bowel sounds, soft. ABSENT: organomegaly, tenderness Results Laboratory Results: 06/28/18 06:46 07/02/18 05:19 07/02/18 07/02/18 07/02/18 05: 05: 05:30 Sodium 127.9 L Potassium 3.1 L Chloride 108 H Carbon Dioxide 17 L Anion Gap 3 L BUN 5 L Creatinine 0.40 L Est GFR ( Amer) > 60 Est GFR (Non-Af Amer) > 60 Glucose 116 H Calcium 8.8 Lipase 47.2 Stool Occult Blood POSITIVE 06/27/18 21:20 Stool - Stool - Final 06/27/18 21:20 Stool - Stool Stool Culture - Final NO SALMONELLA, SHIGELLA, CAMPYLOBACTER, OR E.COLI 0157 RECOVERED. NEGATIVE FOR SHIGA TOXINS 1&2. Impressions: Chest X-Ray 06/28/18 10:39 IMPRESSION: NO ACUTE RADIOGRAPHIC FINDING IN THE CHEST. Renal Ultrasound 06/29/18 00:00 IMPRESSION: 1. NORMAL RENAL AND BLADDER ULTRASOUND. 2. SOLID MASS IN THE RIGHT LOBE OF THE LIVER. THE LIVER IS NOT COMPLETELY EVALUATED. RECOMMEND FOLLOW-UP WITH CT OF THE ABDOMEN AND PELVIS TO MORE COMPLETELY EVALUATE THE LIVER FINDING WELL DETERMINE IF ANY OTHER ABNORMAL FINDINGS ARE PRESENT. Abdomen/Pelvis CT 06/29/18 12:30 IMPRESSION: 1. THERE ARE A FEW SCATTERED CYSTS IN THE LIVER. IN THE INFERIOR RIGHT LOWER LOBE THERE IS A SOLID LESION, SOMEWHAT DIFFICULT TO CHARACTERIZE ON NONCONTRAST IMAGING. IF FEASIBLE WOULD RECOMMEND A A CONTRASTED CT OR MRI FOR MORE COMPLETE EVALUATION. 2. PARTIALLY CALCIFIED ROUNDED MASS IN THE SUBPLEURAL POSTERIOR RIGHT LOWER LOBE. THIS COULD REPRESENT ROUND ATELECTASIS ASSOCIATED WITH A CALCIFIED PLEURAL PLAQUE. MALIGNANT PROCESS CANNOT BE EXCLUDED. 3. FLUID IN THE SMALL BOWEL AND COLON WITH MILD SMALL BOWEL DILATION, POSSIBLY MILD ILEUS. NO FINDINGS TO SUGGEST OBSTRUCTION. 4. NO OTHER SIGNIFICANT FINDINGS IN THE ABDOMEN OR PELVIS. Abdomen MRI 06/30/18 00:00 IMPRESSION: 1. Suspicious masses in the right hepatic lobe as above. The dominant lesion in the inferior aspect of the right lobe is amenable to CT-guided biopsy if clinically desired. Chest CT 07/01/18 00:00 IMPRESSION: 1. Medial right lower lobe mass, suspicious for mesothelioma arising in a calcified pleural plaque. Consider biopsy. 2. No acute pulmonary infiltrates. 3. Hepatic lesions, as seen on prior exam. Liver Biopsy CT 07/02/18 07:00 IMPRESSION: CT GUIDED RIGHT LOBE LIVER BIOPSY PERFORMED ABOVE. PATHOLOGY PENDING. NO IMMEDIATE COMPLICATIONS. Assessment & Plan - Diagnosis (1) Hyponatremia Is this a current diagnosis for this admission?: Yes Plan: This could still be secondary to volume depletion secondary to continuous diarrhea. Daughter possibility is a SIADH in a patient with recently diagnosed liver mass. Patient had hypertonic saline on admission with initial sodium of 117-122. Currently maintained on IV fluid with normal saline were rate was just increased. Continue the same for now. Needs to control diarrhea. (2) Diarrhea Qualifiers: Diarrhea type: unspecified type Qualified Code(s): R19.7 - Diarrhea, unspecified Is this a current diagnosis for this admission?: Yes Plan: Agree with Leon. C. difficile negative. (3) Liver mass Is this a current diagnosis for this admission?: Yes Plan: Status post biopsy today. (4) Metabolic acidosis Is this a current diagnosis for this admission?: Yes Plan: Non-anion gap likely secondary to diarrhea. (5) Hypokalemia Is this a current diagnosis for this admission?: Yes Plan: Replace as necessary. This is due to diarrhea. (6) Lung mass Is this a current diagnosis for this admission?: Yes Plan: Suspicious for mesothelioma. - Time Time with patient: 15-25 minutes
[2018-07-02 16:50] LABS: BLOOD UREA NITROGEN 3 mg/dL (7-20); CALCIUM 8.5 mg/dL (8.4-10.2); GLUCOSE 106 mg/dL (75-110); POTASSIUM 3.6 mmol/L (3.6-5.0)
[2018-07-02 16:56] LABS: CARBON DIOXIDE 20 mmol/L (22-30); CHLORIDE 107 mmol/L (98-107); SODIUM 129.7 mmol/L (137-145)
[2018-07-02 16:59] LABS: ANION GAP 3 (5-19)
[2018-07-02] MEDS ORDERED: PEG 3350/NA SULF,BICARB,CL/KCL 4000 ML PO ONE (20:15)
[2018-07-03 03:58] LABS: INTERNATIONAL RATION (INR) 1.11; PROTHROMBIN TIME 14.9 SEC (11.4-15.4)
[2018-07-03 03:59] LABS: PARTIAL THROMBOPLASTIN TIME 27.1 SEC (23.5-35.8)
[2018-07-03 04:18] LABS: SODIUM 131.9 mmol/L (137-145)
[2018-07-03] MEDS ORDERED: POTASSIUM CHLORIDE 10 MEQ CAPSULE.ER PO ONE (04:37)
[2018-07-03] MEDS: HEPARIN SOD (PORCINE) 5,000 UNIT/ML 1 ML SYRINGE SUBCUT SCH ×3 (05:05→22:29)
[2018-07-03] MEDS: NORMAL SALINE 1000 ML 1,000 ML IV PRN ×2 (05:07→16:01)
[2018-07-03] MEDS: POTASSI CL 20 MEQ/50 ML RIDER 20 MEQ/50 ML RTUPB IV SCH ×2 (05:11→07:00)
[2018-07-03] MEDS ORDERED: FISH OIL PO SCH (08:00)
[2018-07-03] MEDS ORDERED: (PENDING PHARMACY ID) (Calcium Carbonate/Vitamin D3 [Calcium 500 + Vit D Caplet] 1 EACH) PO SCH (08:00)
[2018-07-03] MEDS ORDERED: (PENDING PHARMACY ID) (Glucosamine Sulfate Dipot Chlr [Glucosamine] 1,000 MG) PO SCH (08:00)
[2018-07-03] MEDS ORDERED: (PENDING PHARMACY ID) (Flaxseed Oil [Flax Seed Oil] 1,000 MG) PO SCH (08:00)
[2018-07-03] MEDS ORDERED: OMEGA PO SCH (08:00)
[2018-07-03] MEDS ORDERED: ST JOHN S WORT 150 MG PO SCH (08:00)
[2018-07-03] MEDS ORDERED: FATTY ACIDS PO SCH (08:00)
[2018-07-03] MEDS ORDERED: (PENDING PHARMACY ID) (Ubidecarenone/Vit E Acet [Co Q-10 100 Mg Softgel] 1 EACH) PO SCH (08:00)
--- NOTE | 2018-07-03 08:22 | PDOC PROGRESS REPORT ---
Subjective Progress Note for:: 07/03/18 Subjective:: 87 yr old female with a PMH of hyperlipidemia and is also taking multiple supplements who was admitted for symptomatic hyponatremia. She had an initial sodium of 117 from an outpaitent BMP and was 122 upon presentation. She had a possible seizure in the ER as well. She was given hypertonic saline on admission. 06/28: She denies acute complaint. She has hearing difficulty as she does not have her hearing aids with her but she appears to be coherent and is at her baseline mentation this morning. Family mentions she has been having watery diarrhea in the past 3 weeks. She has not had diarrhea so far since last night in the ICU. Patient says she drinks 2 cups of coffee at breakfast, a cup of tea at lunch and 2 cups of coffee at night. She says she drinks water between 500 cc to less than 1L/day although it appears she reported of drinking way more on admission. 06/29: She feels better today and is at her baseline. Sodium has also improved with normal saline. She did have loose stools this morning. Renal US revealed a solid mass on the liver. 06/30: She had 3 loose watery stools this morning. She appears comfortable. Denies abdominal pain. She is going for MRI today. 07/01: Patient had persistent loose stools and had 2 episodes last night and another 2 episodes this morning. She was hypokalemic again this morning. Patient and daughter shares she was in [facility] several years ago and expressed concern about parasite. Patient also apparently has never had a colonoscopy done in before. MRI shows suspicious lesion on the liver. 07/02: She had 2 loose stools this morning but says the Questran helped a lot the the diarrhea. She had hypokalemia at 3.1 again this morning. Sodium has decreased to 127 today. She is scheduled for a CT guided biopsy of her liver mass today. FOBT came back positive. Discussed with Dr. Terrazas over phone who has recommended scheduling her for colonoscopy tomorrow. She will be switched to clears and will be kept NPO post midnight. 07/03/2018-patient received GoLYTELY for colonoscopy and EGD today. Potassium is 3.0 she dictating supplementation. Magnesium is 1.5 she is going to receive IV magnesium. I discussed the plan with Dr. Terrazas he wants to do the procedure around 1 PM and he was potassium supplementation and magnesium supplementation this morning and repeat the labs around 1130 so the anesthesiologist can look at the labs and arrange for a colonoscopy and EGD. Patient is comfortably in the bed denies any complaints. Daughter is bedside denies any complaints. Patient is a full code. Patient has a liver biopsy done yesterday waiting for the pathology report. Does not not complaining of diarrhea anymore and she said Anuelsnehal is helping very well. Reason For Visit: HYPONATREMIA Physical Exam Vital Signs: Temp Pulse Resp BP Pulse Ox 98.6 F 79 18 125/42 L 97 07/03/18 04:13 07/03/18 04:13 07/03/18 04:13 07/03/18 04:13 07/03/18 04:13 Intake & Output 07/02/18 07/03/18 07/04/18 06:59 06:59 06:59 Intake Total 2443 3035 45 Balance 2443 3035 45 Weight 68.6 kg 68.6 kg General appearance: PRESENT: no acute distress Head exam: PRESENT: atraumatic Eye exam: PRESENT: PERRLA Mouth exam: PRESENT: moist, tongue midline Neck exam: ABSENT: carotid bruit, JVD, lymphadenopathy, thyromegaly Respiratory exam: PRESENT: clear to auscultation [place]. ABSENT: rales, rhonchi, wheezes Cardiovascular exam: PRESENT: RRR, systolic murmur Pulses: PRESENT: normal dorsalis pedis pul GI/Abdominal exam: PRESENT: normal bowel sounds, soft. ABSENT: distended, g uarding, mass, organolmegaly, rebound, tenderness Extremities exam: PRESENT: full ROM. ABSENT: calf tenderness, clubbing, pedal edema Neurological exam: PRESENT: alert, awake, oriented to person, oriented to place, oriented to time, oriented to situation, CN II-XII grossly intact. ABSENT: motor sensory deficit Psychiatric exam: PRESENT: appropriate affect, normal mood. ABSENT: homicidal ideation, suicidal ideation Results Laboratory Results: 06/28/18 06:46 07/03/18 03:30 07/02/18 07/02/18 07/02/18 05:19 05:19 16:20 Sodium 127.9 L 129.7 L Potassium 3.1 L 3.6 Chloride 108 H 107 Carbon Dioxide 17 L 20 L Anion Gap 3 L 3 L BUN 5 L 3 L Creatinine 0.40 L 0.40 L Est GFR ( Amer) > 60 > 60 Est GFR (Non-Af Amer) > 60 > 60 Glucose 116 H 106 Calcium 8.8 8.5 Magnesium 1.5 L Lipase 47.2 07/03/18 03:30 Sodium 131.9 L Potassium 3.0 L* Chloride 108 H Carbon Dioxide 20 L Anion Gap 4 L BUN Creatinine Est GFR ( Amer) Est GFR (Non-Af Amer) Glucose Calcium Magnesium Lipase 06/27/18 21:20 Stool - Stool - Final 06/27/18 21:20 Stool - Stool Stool Culture - Final NO SALMONELLA, SHIGELLA, CAMPYLOBACTER, OR E.COLI 0157 RECOVERED. NEGATIVE FOR SHIGA TOXINS 1&2. Impressions: Chest X-Ray 06/28/18 10:39 IMPRESSION: NO ACUTE RADIOGRAPHIC FINDING IN THE CHEST. Renal Ultrasound 06/29/18 00:00 IMPRESSION: 1. NORMAL RENAL AND BLADDER ULTRASOUND. 2. SOLID MASS IN THE RIGHT LOBE OF THE LIVER. THE LIVER IS NOT COMPLETELY EVALUATED. RECOMMEND FOLLOW-UP WITH CT OF THE ABDOMEN AND PELVIS TO MORE COMPLETELY EVALUATE THE LIVER FINDING WELL DETERMINE IF ANY OTHER ABNORMAL FINDINGS ARE PRESENT. Abdomen/Pelvis CT 06/29/18 12:30 IMPRESSION: 1. THERE ARE A FEW SCATTERED CYSTS IN THE LIVER. IN THE INFERIOR RIGHT LOWER LOBE THERE IS A SOLID LESION, SOMEWHAT DIFFICULT TO CHARACTERIZE ON NONCONTRAST IMAGING. IF FEASIBLE WOULD RECOMMEND A A CONTRASTED CT OR MRI FOR MORE COMPLETE EVALUATION. 2. PARTIALLY CALCIFIED ROUNDED MASS IN THE SUBPLEURAL POSTERIOR RIGHT LOWER LOBE. THIS COULD REPRESENT ROUND ATELECTASIS ASSOCIATED WITH A CALCIFIED PLEURAL PLAQUE. MALIGNANT PROCESS CANNOT BE EXCLUDED. 3. FLUID IN THE SMALL BOWEL AND COLON WITH MILD SMALL BOWEL DILATION, POSSIBLY MILD ILEUS. NO FINDINGS TO SUGGEST OBSTRUCTION. 4. NO OTHER SIGNIFICANT FINDINGS IN THE ABDOMEN OR PELVIS. Abdomen MRI 06/30/18 00:00 IMPRESSION: 1. Suspicious masses in the right hepatic lobe as above. The dominant lesion in the inferior aspect of the right lobe is amenable to CT-guided biopsy if clinically desired. Chest CT 07/01/18 00:00 IMPRESSION: 1. Medial right lower lobe mass, suspicious for mesothelioma arising in a calcified pleural plaque. Consider biopsy. 2. No acute pulmonary infiltrates. 3. Hepatic lesions, as seen on prior exam. Liver Biopsy CT 07/02/18 07:00 IMPRESSION: CT GUIDED RIGHT LOBE LIVER BIOPSY PERFORMED ABOVE. PATHOLOGY PENDING. NO IMMEDIATE COMPLICATIONS. Assessment and Plan - Diagnosis (1) Hyponatremia Is this a current diagnosis for this admission?: Yes Plan: History strongly suggests volume overload, hypotonic hyponatremia. 3% saline initiated at 50 mL/h follow-up chemistry every 6 hours.She has hypotonic hypon atremia. She appears euvolemic. Urine osm is low, urine sodium. Sodium has slightly improved. She does report of significant diarrhea. High caffeine intake and limited water intake is more supportive of sodium and water loss. Will consult nephrology for further opinion and recommendation. 06/29: Sodium has improved to 130. Continue normal saline. 06/30: Sodium stable at 130. She continues to have diarrhea. Increase normal saline to 125 cc/hr. 07/01: Sodium remain stable at 130. Increase normal saline to 150 cc/hr as she continues to have persistent diarrhea. Differentials at this time include volume depletion from diarrhea as she continues to have diarrhea. Hyponatremia work-up is not very consistent with dehydration alone. In the setting of possible malignancy, a questionable lung nodule, SIADH is also a possibility hence the equivocal results of work-up. 07/02: Sodium down to 127 today with continued diarrhea. Continue normal saline at 150 cc/hr. Will add Questran bid as she did say the single dose yesterday helped with the frequency and volume of diarrhea. 07/03/2018-serum sodium level is 132 today. Improved from 127. As patient is receiving normal saline at 150 cc/h. Patient is asymptomatic. Patient has one episode of seizure activity in the ER no seizures noticed after the admission. Patient has a liver mass there is a possibility of SIADH causing hyponatremia. Dr. Piña is on board. It is euvolemic. Serum osmolality is low it goes against SIADH. plan to repeat the labs tomorrow. (2) Liver mass Is this a current diagnosis for this admission?: Yes Plan: Incidental finding of solid mass on the liver on US. 06/30: She is scheduled for an MRI of the abdomen today. 07/01: Discussed with oncology who has recommended biopsy. Discussed plan of care with patient and family in length. 07/02: She is going for a CT guided liver biopsy today. 07/03/2018-patient underwent CT-guided liver biopsy yesterday. Pathology report is pending. Dr. Cornejo is on board. No acute events after the biopsy. Incidental finding of the solid mass was found on the ultrasound of the liver. Follow-up MRI of the abdomen was done. (3) Diarrhea Qualifiers: Diarrhea type: unspecified type Qualified Code(s): R19.7 - Diarrhea, unspecified Is this a current diagnosis for this admission?: Yes Plan: Chronic diarrhea. This has been going on for 4 weeks now. C. diff has been negative. No stool WBCs. Also sent for ova and parasites as she says she lived in [facility] for some time. Continue IV fluids. 06/30: Stool culture negative. Increase IV fluids. Will add Immodium. 07/01: Discussed she may need colonoscopy as well. 07/02: She had 2 loose stools this morning but says the Questran helped a lot the the diarrhea. Discussed with Dr. Terrazas over phone who has recommended scheduling her for colonoscopy tomorrow. She will be switched to clears and will be kept NPO post midnight. 07/03/2018-patient has GoLYTELY for preparation to go for colonoscopy today. Patient saying Questran is helping her very much with diarrhea. Patient is n.p.o. for colonoscopy and EGD today. (4) Hypokalemia Is this a current diagnosis for this admission?: Yes Plan: Potassium at 3.1 today. Replace with 40 meqs PO and 40 meqs IV. 07/03/2018-serum potassium level is 3.0 she is receiving IV potassium supplementation plan is to repeat the labs around 11 AM. if The potassium is around 3.4 patient can go for colonoscopy. (5) Hypomagnesemia Is this a current diagnosis for this admission?: Yes Plan: 07/03/2018 latest serum magnesium level is 1.5. To give 2 g of IV magnesium. Plan to repeat the magnesium level tomorrow. Hypomagnesemia most likely secondary to his diarrhea. - Time Time Spent with patient: 15-24 minutes Medications reviewed and adjusted accordingly: Yes Anticipated discharge: Home
--- NOTE | 2018-07-03 08:58 | PDOC PROGRESS REPORT ---
Subjective Progress Note for:: 07/03/18 Subjective:: Patient states diarrhea much improved with Questran. Scheduled fro EGD and colonoscopy today. Await biopsy report. Did well with the procedure yesterday. Tolerated clear liquid diet yesterday without problems. Reason For Visit: HYPONATREMIA Physical Exam Vital Signs: Temp Pulse Resp BP Pulse Ox 98.6 F 79 18 125/42 L 97 07/03/18 04:13 07/03/18 04:13 07/03/18 04:13 07/03/18 04:13 07/03/18 04:13 Intake & Output 07/02/18 07/03/18 07/04/18 06:59 06:59 06:59 Intake Total 2443 3035 45 Balance 2443 3035 45 Weight 68.6 kg 68.6 kg General appearance: PRESENT: well-developed, well-nourished Head exam: PRESENT: normocephalic Respiratory exam: PRESENT: clear to auscultation [place], unlabored Cardiovascular exam: PRESENT: RRR, systolic murmur GI/Abdominal exam: PRESENT: soft. ABSENT: tenderness Extremities exam: ABSENT: pedal edema Neurological exam: PRESENT: alert, awake Psychiatric exam: PRESENT: appropriate affect Skin exam: PRESENT: normal color Results Laboratory Results: 06/28/18 06:46 07/03/18 03:30 07/02/18 07/02/18 07/03/18 05:19 16:20 03:30 Sodium 129.7 L 131.9 L Potassium 3.6 3.0 L* Chloride 107 108 H Carbon Dioxide 20 L 20 L Anion Gap 3 L 4 L BUN 3 L Creatinine 0.40 L Est GFR ( Amer) > 60 Est GFR (Non-Af Amer) > 60 Glucose 106 Calcium 8.5 Magnesium 1.5 L Lipase 47.2 06/27/18 21:20 Stool - Stool - Final 06/27/18 21:20 Stool - Stool Stool Culture - Final NO SALMONELLA, SHIGELLA, CAMPYLOBACTER, OR E.COLI 0157 RECOVERED. NEGATIVE FOR SHIGA TOXINS 1&2. Impressions: Chest X-Ray 06/28/18 10:39 IMPRESSION: NO ACUTE RADIOGRAPHIC FINDING IN THE CHEST. Renal Ultrasound 06/29/18 00:00 IMPRESSION: 1. NORMAL RENAL AND BLADDER ULTRASOUND. 2. SOLID MASS IN THE RIGHT LOBE OF THE LIVER. THE LIVER IS NOT COMPLETELY EVALUATED. RECOMMEND FOLLOW-UP WITH CT OF THE ABDOMEN AND PELVIS TO MORE COMPL ETELY EVALUATE THE LIVER FINDING WELL DETERMINE IF ANY OTHER ABNORMAL FINDINGS ARE PRESENT. Abdomen/Pelvis CT 06/29/18 12:30 IMPRESSION: 1. THERE ARE A FEW SCATTERED CYSTS IN THE LIVER. IN THE INFERIOR RIGHT LOWER LOBE THERE IS A SOLID LESION, SOMEWHAT DIFFICULT TO CHARACTERIZE ON NONCONTRAST IMAGING. IF FEASIBLE WOULD RECOMMEND A A CONTRASTED CT OR MRI FOR MORE COMPLETE EVALUATION. 2. PARTIALLY CALCIFIED ROUNDED MASS IN THE SUBPLEURAL POSTERIOR RIGHT LOWER LOBE. THIS COULD REPRESENT ROUND ATELECTASIS ASSOCIATED WITH A CALCIFIED PLEURAL PLAQUE. MALIGNANT PROCESS CANNOT BE EXCLUDED. 3. FLUID IN THE SMALL BOWEL AND COLON WITH MILD SMALL BOWEL DILATION, POSSIBLY MILD ILEUS. NO FINDINGS TO SUGGEST OBSTRUCTION. 4. NO OTHER SIGNIFICANT FINDINGS IN THE ABDOMEN OR PELVIS. Abdomen MRI 06/30/18 00:00 IMPRESSION: 1. Suspicious masses in the right hepatic lobe as above. The dominant lesion in the inferior aspect of the right lobe is amenable to CT-guided biopsy if clinically desired. Chest CT 07/01/18 00:00 IMPRESSION: 1. Medial right lower lobe mass, suspicious for mesothelioma arising in a calcified pleural plaque. Consider biopsy. 2. No acute pulmonary infiltrates. 3. Hepatic lesions, as seen on prior exam. Liver Biopsy CT 07/02/18 07:00 IMPRESSION: CT GUIDED RIGHT LOBE LIVER BIOPSY PERFORMED ABOVE. PATHOLOGY PENDING. NO IMMEDIATE COMPLICATIONS. Assessment & Plan - Diagnosis (1) Diarrhea Qualifiers: Diarrhea type: unspecified type Qualified Code(s): R19.7 - Diarrhea, unspecified Is this a current diagnosis for this admission?: Yes Plan: Has responded to Questran. May try pancreatic enzymes on discharge as well. Await results of EGD and colonoscopy today. (2) Liver mass Is this a current diagnosis for this admission?: Yes Plan: Await path report. (3) Hyponatremia Is this a current diagnosis for this admission?: Yes Plan: May be secondary to bowel prep for colonoscopy today. - Plan Summary Plan Summary: Will discuss findings with patient and daughter once available. Please call with any concerns.
[2018-07-03] MEDS: MAGNESIUM SULFATE/D5W 1 GM/100 ML RTUPB IV SCH ×3 (09:24→10:53)
[2018-07-03] MEDS: ASCORBIC ACID 500 MG TABLET PO SCH ×2 (09:27→09:44)
[2018-07-03] MEDS: PANTOPRAZOLE SODIUM 40 MG VIAL IV SCH (09:28)
[2018-07-03] MEDS ORDERED: CALCIUM CARBONATE 250 MG/VITAMIN D3 125 UNIT TABLET PO SCH (10:00)
[2018-07-03] MEDS ORDERED: MULTIVITAMIN TABLET PO SCH (10:00)
[2018-07-03] MEDS ORDERED: PROPOFOL INJ 200 MG/20 ML VIAL IV ONE (11:33)
[2018-07-03] MEDS ORDERED: DIPHENHYDRAMINE HCL 50 MG/ML VIAL IV PRN (13:20)
[2018-07-03] MEDS ORDERED: PROMETHAZINE HCL INJ 25 MG/1 ML VIAL IV PRN (13:20)
[2018-07-03] MEDS ORDERED: FENTANYL CITRATE INJ/PF 100 MCG/2 ML AMPUL IV PRN ×3 (13:20)
--- NOTE | 2018-07-03 13:50 | Operative Report ---
Operative Report DATE OF SURGERY: 07/03/18 Operative Report: The risks, benefits and alternatives of the procedure including the risk of bleeding, perforation requiring surgery have been explained to the patient in detail and informed consent has been obtained. Patient is taken back to the endoscopy suite and placed in the left, lateral decubital position. Timeout was called. Propofol medication is administered. Rectal examination is done which did not reveal any masses, tears or fissures. An Olympus videoscope was introduced into the patient's rectum. The scope was then carefully advanced all the way to the cecum. The cecum was identified by the usual anatomical landmarks including the ileocecal valve as well as the appendiceal office. Photodocumentation is obtained. Scope was then sequentially pulled back via the various segments of the colon including the ascending colon, hepatic flexure, transverse colon, splenic flexure, descending colon and finally into the rectosigmoid portions of the colon. Retroflexion maneuver was performed. The risks benefits and alternatives of the procedure explained to the patient in detail and informed consent is obtained.A GIF Olympus video scope was inserted into the patient's mouth and hypopharynx, the esophagus is identified intubated and insufflated, the scope was then advanced through the esophagus stomach and duodenum, retroflexion maneuver is done, the esophagus stomach and first and second portions of the duodenum examined. PREOPERATIVE DIAGNOSIS: Change of bowel habits. Epigastric pain POSTOPERATIVE DIAGNOSIS: 2 colon polyps noted in the ascending colon that was removed via snare polypectomy and retrieved. Redundancy of her colon. Diverticulosis no evidence of diverticulitis. Internal hemorrhoids. Random biopsies to rule out microscopic, collagenous colitis. Esophageal ulcer clean base no evidence of bleeding. Hiatal hernia. Gastritis status post biopsy rule out Helicobacter pylori. Duodenal ulcers OPERATION: Colonoscopy with snare polypectomy. Colonoscopy with biopsy. EGD with biopsy SURGEON: MOUSTAPHA CONKLIN ANESTHESIA: LMAC TISSUE REMOVED OR ALTERED: As noted above. COMPLICATIONS: None. ESTIMATED BLOOD LOSS: None. INTRAOPERATIVE FINDINGS: As noted above. PROCEDURE: Patient tolerated the procedure well. No immediate postprocedure comp occasions are noted. Patient sent back to her room in good condition. We will wait on the biopsies. With sent for a serum gastrin level to rule out possible Bri-Lee syndrome. Started on a PPI If biopsies are positive for Helicobacter pylori would go ahead and treat her Await pathology of the polyp Follow-up as needed
--- NOTE | 2018-07-03 13:57 | PDOC CONSULTATION ---
Consultation Consult Date: 07/02/18 Attending physician:: MOUSTAPHA CONKLIN Consult reason:: change in bowel habits. epigastric pain History of Present Illness Admission Date/PCP: 06/27/18 23:22 GUALBERTO FERNANDEZ PA-C History of Present Illness: SANDRA FLORENTINO is a 87 year old female patient is admitted by the Hospitalist service, found to have severe electrolyte abnormalities due to diarrhea going on for about 5 weeks duration patient had eaten a salad patient states no there is no blood during her work up it was noted she could have liver lesion she has never had a colonoscopy done in the past patient denies having problems prior to that she does have some abdominal discomfort as well she will need an EGD and colonoscopy she would benefit from Propofol sedation there is no family history of any colon cancer Past Medical History Cardiac Medical History: Reports: Hyperlipidema Denies: Myocardial Infarction, Hypertension Pulmonary Medical History: Reports: None Denies: Asthma EENT Medical History: Reports: None Neurological Medical History: Reports: None Denies: Seizures Endocrine Medical History: Reports: None Renal/ Medical History: Reports: None Malignancy Medical History: Reports: None GI Medical History: Reports: None Denies: Hepatitis, Hiatal Hernia Musculoskeltal Medical History: Reports: None Skin Medical History: Reports: None Psychiatric Medical History: Reports: None Traumatic Medical History: Reports: None Hematology: Denies: Anemia, Sickle Cell Disease Infectious Medical History: Reports: None Past Surgical History Past Surgical History: Reports: Hysterectomy Denies: Amputation, Mastectomy, Pacemaker Social History Lives with: Family Smoking Status: Never Smoker Frequency of Alcohol Use: None Drugs: None - Advance Directive Resuscitation Status: Full Code Family History Family History: Hypertension Parental Family History Reviewed: Yes Children Family History Reviewed: Unknown Sibling(s) Family History Reviewed.: Unknown Medication/Allergy Home Medications: Ascorbic Acid [Vitamin C 500 mg Tablet] 500 mg PO DAILY 12/12/16 Calcium Carbonate/Vitamin D3 [Calcium 500 + Vit D Caplet] 1 each PO DAILY 12/12/16 Flaxseed Oil [Flax Seed Oil] 1,000 mg PO DAILY 12/12/16 Glucosamine Sulfate Dipot Chlr [Glucosamine] 1,000 mg PO DAILY 12/12/16 Multivitamin [Multivitamins] 1 each PO DAILY 12/12/16 [place]-3 Fatty Acids/Fish Oil [Fish Oil 300 Mg Softgel] 1 each PO DAILY 12/12/16 Leslie's Wort 150 mg PO DAILY 12/12/16 Ubidecarenone/Vit E Acet [Co Q-10 100 mg Softgel] 1 each PO DAILY 06/28/18 Allergies/Adverse Reactions: morphine Adverse Reaction (Verified 06/27/18 18:02) Nausea Review of Systems Constitutional: ABSENT: fever(s), headache(s), night sweats Eyes: ABSENT: visual disturbances Ears: ABSENT: hearing changes Nose, Mouth, and Throat: ABSENT: mouth pain, sore throat Cardiovascular: ABSENT: edema, orthropnea, palpitations Respiratory: ABSENT: dyspnea, hemoptysis Gastrointestinal: PRESENT: diarrhea. ABSENT: dysphagia Musculoskeletal: ABSENT: deformity, joint swelling Integumentary: ABSENT: lesions, pruritus Neurological: ABSENT: syncope, tingling, tremor(s), vertigo Psychiatric: ABSENT: hallucinations Endocrine: ABSENT: polydipsia, polyphagia, polyuria Hematologic/Lymphatic: ABSENT: easy bruising, lymphadenopathy Physical Exam Vital Signs: Temp Pulse Resp BP Pulse Ox 98.5 F 82 18 125/54 L 95 07/03/18 12:00 07/03/18 12:00 07/03/18 12:00 07/03/18 12:00 07/03/18 12:00 Intake & Output 07/02/18 07/03/18 07/04/18 06:59 06:59 06:59 Intake Total 2443 3035 1395 Output Total 0 Balance 2443 3035 1395 Weight 68.6 kg 68.6 kg General appearance: PRESENT: no acute distress, well-developed, well-nourished Head exam: PRESENT: atraumatic, normocephalic Eye exam: PRESENT: EOMI, PERRLA. ABSENT: periorbital swelling, scleral icterus Mouth exam: PRESENT: moist, neck supple Throat exam: ABSENT: tonsillar exudate, tonsillogmegaly Neck exam: ABSENT: meningismus, tenderness, thyromegaly Respiratory exam: PRESENT: symmetrical, unlabored. ABSENT: tachypnea, wheezes Cardiovascular exam: PRESENT: RRR, +S1, +S2 GI/Abdominal exam: PRESENT: soft. ABSENT: rebound, rigid, tenderness Neurological exam: PRESENT: oriented to time, oriented to situation, CN II-XII grossly intact Focused psych exam: ABSENT: restlessness Skin exam: PRESENT: normal color. ABSENT: mottled, pallor, urticaria, vesicles Results Laboratory Results: 06/28/18 06:46 07/03/18 11:46 07/02/18 07/02/18 07/03/18 05:19 16:20 03:30 Sodium 129.7 L 131.9 L Potassium 3.6 3.0 L* Chloride 107 108 H Carbon Dioxide 20 L 20 L Anion Gap 3 L 4 L BUN 3 L Creatinine 0.40 L Est GFR ( Amer) > 60 Est GFR (Non-Af Amer) > 60 Glucose 106 Calcium 8.5 Magnesium 1.5 L Lipase 47.2 07/03/18 11:46 Sodium Potassium 3.7 Chloride Carbon Dioxide Anion Gap BUN Creatinine Est GFR ( Amer) Est GFR (Non-Af Amer) Glucose Calcium Magnesium Lipase 06/27/18 21:20 Stool - Stool - Final 06/27/18 21:20 Stool - Stool Stool Culture - Final NO SALMONELLA, SHIGELLA, CAMPYLOBACTER, OR E.COLI 0157 RECOVERED. NEGATIVE FOR SHIGA TOXINS 1&2. Impressions: Chest X-Ray 06/28/18 10:39 IMPRESSION: NO ACUTE RADIOGRAPHIC FINDING IN THE CHEST. Renal Ultrasound 06/29/18 00:00 IMPRESSION: 1. NORMAL RENAL AND BLADDER ULTRASOUND. 2. SOLID MASS IN THE RIGHT LOBE OF THE LIVER. THE LIVER IS NOT COMPLETELY EVALUATED. RECOMMEND FOLLOW-UP WITH CT OF THE ABDOMEN AND PELVIS TO MORE COMPLETELY EVALUATE THE LIVER FINDING WELL DETERMINE IF ANY OTHER ABNORMAL FINDINGS ARE PRESENT. Abdomen/Pelvis CT 06/29/18 12:30 IMPRESSION: 1. THERE ARE A FEW SCATTERED CYSTS IN THE LIVER. IN THE INFERIOR RIGHT LOWER LOBE THERE IS A SOLID LESION, SOMEWHAT DIFFICULT TO CHARACTERIZE ON NONCONTRAST IMAGING. IF FEASIBLE WOULD RECOMMEND A A CONTRASTED CT OR MRI FOR MORE COMPLETE EVALUATION. 2. PARTIALLY CALCIFIED ROUNDED MASS IN THE SUBPLEURAL POSTERIOR RIGHT LOWER LOBE. THIS COULD REPRESENT ROUND ATELECTASIS ASSOCIATED WITH A CALCIFIED PLEURAL PLAQUE. MALIGNANT PROCESS CANNOT BE EXCLUDED. 3. FLUID IN THE SMALL BOWEL AND COLON WITH MILD SMALL BOWEL DILATION, POSSIBLY MILD ILEUS. NO FINDINGS TO SUGGEST OBSTRUCTION. 4. NO OTHER SIGNIFICANT FINDINGS IN THE ABDOMEN OR PELVIS. Abdomen MRI 06/30/18 00:00 IMPRESSION: 1. Suspicious masses in the right hepatic lobe as above. The dominant lesion in the inferior aspect of the right lobe is amenable to CT-guided biopsy if clinically desired. Chest CT 07/01/18 00:00 IMPRESSION: 1. Medial right lower lobe mass, suspicious for mesothelioma arising in a calcified pleural plaque. Consider biopsy. 2. No acute pulmonary infiltrates. 3. Hepatic lesions, as seen on prior exam. Liver Biopsy CT 07/02/18 07:00 IMPRESSION: CT GUIDED RIGHT LOBE LIVER BIOPSY PERFORMED ABOVE. PATHOLOGY PENDING. NO IMMEDIATE COMPLICATIONS. Assessment & Plan - Diagnosis (1) Epigastric pain Plan: will need EGD rule out for possible peptic ulcer disease Risks, benefits and alternatives are discussed with the patient in detail (2) Chronic diarrhea Plan: she will need a colonoscopy as well her diarrhea is prolonged but work up has not revealed an infectious source Propofol sedation Risks, benefits and alternatives are discussed with the patient in detail further recommendations to follow
--- NOTE | 2018-07-03 18:04 | PDOC PROGRESS REPORT ---
Subjective Progress Note for:: 07/03/18 Subjective:: Patient said that the question made a difference in controlling her diarrhea. However she was being given GoLYTELY for prep for EGD and colonoscopy today. Her sodium level today is improved to 131.9. She is otherwise clinically stable without any symptoms pertaining to hyponatremia. Liver biopsy is still pending Reason For Visit: HYPONATREMIA Physical Exam Vital Signs: Temp Pulse Resp BP Pulse Ox 97.5 F 75 20 134/52 H 100 07/03/18 08:00 07/03/18 08:00 07/03/18 08:00 07/03/18 08:00 07/03/18 08:00 Intake & Output 07/02/18 07/03/18 07/04/18 06:59 06:59 06:59 Intake Total 2443 3035 195 Balance 2443 3035 195 Weight 68.6 kg 68.6 kg Exam: General appearance: PRESENT: no acute distress, cooperative, well-developed, well-nourished Head exam: PRESENT: atraumatic, normocephalic Eye exam: PRESENT: conjunctiva slightly pale, PERRLA. ABSENT: scleral icterus Neck exam: ABSENT: JVD Respiratory exam: PRESENT: Diminished breath sounds. ABSENT: crackles, rales, rhonchi, unlabored, wheezes Cardiovascular exam: PRESENT: Regular rate rhythm -+S1, +S2. Grade 2/6, systolic murmur GI/Abdominal exam: PRESENT: normal bowel sounds, soft. ABSENT: guarding, mass, tenderness Extremities exam: ABSENT: No edema Neurological exam: PRESENT: alert, awake, oriented to person, place and time. Skin exam: PRESENT: dry, warm, Cardiovascular exam: PRESENT: +S1, +S2 GI/Abdominal exam: PRESENT: normal bowel sounds, soft. ABSENT: organomegaly, tenderness Results Laboratory Results: 06/28/18 06:46 07/03/18 03:30 07/02/18 07/02/18 07/03/18 05:19 16:20 03:30 Sodium 129.7 L 131.9 L Potassium 3.6 3.0 L* Chloride 107 108 H Carbon Dioxide 20 L 20 L Anion Gap 3 L 4 L BUN 3 L Creatinine 0.40 L Est GFR ( Amer) > 60 Est GFR (Non-Af Amer) > 60 Glucose 106 Calcium 8.5 Magnesium 1.5 L Lipase 47.2 04/10/19 21:20 Stool - Stool - Final 06/27/18 21:20 Stool - Stool Stool Culture - Final NO SALMONELLA, SHIGELLA, CAMPYLOBACTER, OR E.COLI 0157 RECOVERED. NEGATIVE FOR SHIGA TOXINS 1&2. Impressions: Chest X-Ray 06/28/18 10:39 IMPRESSION: NO ACUTE RADIOGRAPHIC FINDING IN THE CHEST. Renal Ultrasound 06/29/18 00:00 IMPRESSION: 1. NORMAL RENAL AND BLADDER ULTRASOUND. 2. SOLID MASS IN THE RIGHT LOBE OF THE LIVER. THE LIVER IS NOT COMPLETELY EVALUATED. RECOMMEND FOLLOW-UP WITH CT OF THE ABDOMEN AND PELVIS TO MORE COMPLETELY EVALUATE THE LIVER FINDING WELL DETERMINE IF ANY OTHER ABNORMAL FINDINGS ARE PRESENT. Abdomen/Pelvis CT 06/29/18 12:30 IMPRESSION: 1. THERE ARE A FEW SCATTERED CYSTS IN THE LIVER. IN THE INFERIOR RIGHT LOWER LOBE THERE IS A SOLID LESION, SOMEWHAT DIFFICULT TO CHARACTERIZE ON NONCONTRAST IMAGING. IF FEASIBLE WOULD RECOMMEND A A CONTRASTED CT OR MRI FOR MORE COMPLETE EVALUATION. 2. PARTIALLY CALCIFIED ROUNDED MASS IN THE SUBPLEURAL POSTERIOR RIGHT LOWER LOBE. THIS COULD REPRESENT ROUND ATELECTASIS ASSOCIATED WITH A CALCIFIED PLEURAL PLAQUE. MALIGNANT PROCESS CANNOT BE EXCLUDED. 3. FLUID IN THE SMALL BOWEL AND COLON WITH MILD SMALL BOWEL DILATION, POSSIBLY MILD ILEUS. NO FINDINGS TO SUGGEST OBSTRUCTION. 4. NO OTHER SIGNIFICANT FINDINGS IN THE ABDOMEN OR PELVIS. Abdomen MRI 06/30/18 00:00 IMPRESSION: 1. Suspicious masses in the right hepatic lobe as above. The dominant lesion in the inferior aspect of the right lobe is amenable to CT-guided biopsy if clinically desired. Chest CT 07/01/18 00:00 IMPRESSION: 1. Medial right lower lobe mass, suspicious for mesothelioma arising in a calcified pleural plaque. Consider biopsy. 2. No acute pulmonary infiltrates. 3. Hepatic lesions, as seen on prior exam. Liver Biopsy CT 07/02/18 07:00 IMPRESSION: CT GUIDED RIGHT LOBE LIVER BIOPSY PERFORMED ABOVE. PATHOLOGY PENDING. NO IMMEDIATE COMPLICATIONS. Assessment & Plan - Diagnosis (1) Hyponatremia Is this a current diagnosis for this admission?: Yes Plan: This could still be secondary to volume depletion secondary to continuous diarrhea. The other possibility is a SIADH in a patient with recently diagnosed liver mass. Patient had hypertonic saline on admission with initial sodium of 117-122. Sodium level continues to improve with improvement of diarrhea. Currently maintained on IV fluid with normal saline were rate was just increased. Continue the same for now. Needs to control diarrhea. If the sodium level continues to be above 130 and the patient's other symptoms have improved, I think she can be discharged home with follow of in 1-2 weeks after discharge to repeat BMP. (2) Diarrhea Qualifiers: Diarrhea type: unspecified type Qualified Code(s): R19.7 - Diarrhea, unspecified Is this a current diagnosis for this admission?: Yes Plan: Agree with Leon. C. difficile negative. Patient for EGD and colonoscopy today care of Dr. Terrazas. (3) Liver mass Is this a current diagnosis for this admission?: Yes Plan: Status post biopsy 07/02/2018. (4) Metabolic acidosis Is this a current diagnosis for this admission?: Yes Plan: Non-anion gap likely secondary to diarrhea. (5) Hypokalemia Is this a current diagnosis for this admission?: Yes Plan: Replace as necessary. This is due to diarrhea. (6) Lung mass Is this a current diagnosis for this admission?: Yes Plan: Suspicious for mesothelioma. - Time Time with patient: 15-25 minutes
[2018-07-04 04:57] LABS: ABSOLUTE EOSINOPHILS # (AUTO) 0.1 10^3/uL (0.0-0.6); ABSOLUTE LYMPHOCYTES (AUTO) 1.4 10^3/uL (0.5-4.7); ABSOLUTE MONOCYTES (AUTO) 0.9 10^3/uL (0.1-1.4); ABSOLUTE NEUT (AUTO) 7.7 10^3/uL (1.7-8.2); BASOPHILS % (AUTO) 0.4 % (0-2); HEMATOCRIT 30.4 % (36.0-47.0); LYMPHOCYTES % (AUTO) 13.7 % (13-45); MEAN CORPUSCULAR HEMOGLOBIN 32.7 pg (27.0-33.4); MEAN CORPUSCULAR HGB CONC 36.2 g/dL (32.0-36.0); MEAN CORPUSCULAR VOLUME 90 fl (80-97); MONOCYTES % (AUTO) 8.6 % (3-13); PLATELET COUNT 296 10^3/uL (150-450); RED BLOOD COUNT 3.36 10^6/uL (3.72-5.28); RED CELL DISTRIBUTION WIDTH 13.7 % (11.5-14.0); SEGMENTED NEUTROPHILS % (AUTO) 76.3 % (42-78); TOTAL CELLS COUNTED % (AUTO) 100 %; WHITE BLOOD COUNT 10.1 10^3/uL (4.0-10.5)
[2018-07-04] MEDS: NORMAL SALINE 1000 ML 1,000 ML IV PRN (05:13)
[2018-07-04] MEDS: HEPARIN SOD (PORCINE) 5,000 UNIT/ML 1 ML SYRINGE SUBCUT SCH (05:21)
[2018-07-04 05:30] LABS: ALANINE AMINOTRANSFERASE 31 U/L (9-52); ALBUMIN 2.3 g/dL (3.5-5.0); ALKALINE PHOSPHATASE 53 U/L (38-126); ANION GAP 7 (5-19); ASPARTATE AMINO TRANSFERASE 22 U/L (14-36); BILIRUBIN,DIRECT 0.2 mg/dL (0.0-0.4); BILIRUBIN,TOTAL 0.4 mg/dL (0.2-1.3); CALCIUM 8.8 mg/dL (8.4-10.2); CARBON DIOXIDE 20 mmol/L (22-30); CHLORIDE 103 mmol/L (98-107); GLUCOSE 150 mg/dL (75-110); POTASSIUM 3.1 mmol/L (3.6-5.0); SODIUM 129.7 mmol/L (137-145); TOTAL PROTEIN 4.3 g/dL (6.3-8.2)
[2018-07-04 05:36] LABS: BLOOD UREA NITROGEN < 2 mg/dL (7-20)
--- NOTE | 2018-07-04 08:26 | PDOC PROGRESS REPORT ---
Subjective Progress Note for:: 07/04/18 Subjective:: Patient is feeling much better today. The diarrhea is gone. She underwent EGD and Colonoscopy yesterday. 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 Her mother had the same thing. Gastric ulcers were found. She tolerated cardiac diet last night. Reason For Visit: HYPONATREMIA Physical Exam Vital Signs: Temp Pulse Resp BP Pulse Ox 98.2 F 73 18 117/53 L 97 07/03/18 23:20 07/04/18 02:00 07/03/18 23:20 07/03/18 23:20 07/03/18 23:20 Intake & Output 07/03/18 07/04/18 07/05/18 06:59 06:59 06:59 Intake Total 3035 2855 Output Total 0 Balance 3035 2855 Weight 68.6 kg 68.6 kg General appearance: PRESENT: well-developed, well-nourished Head exam: PRESENT: normocephalic Respiratory exam: PRESENT: unlabored Neurological exam: PRESENT: alert, awake Psychiatric exam: PRESENT: appropriate affect Skin exam: PRESENT: normal color Results Laboratory Results: 07/04/18 04:12 07/04/18 04:12 07/03/18 07/04/18 07/04/18 11:46 04:12 04:12 WBC 10.1 RBC 3.36 L Hgb 11.0 L Hct 30.4 L MCV 90 MCH 32.7 MCHC 36.2 H RDW 13.7 Plt Count 296 Seg Neutrophils % 76.3 Lymphocytes % 13.7 Monocytes % 8.6 Eosinophils % 1.0 Basophils % 0.4 Absolute Neutrophils 7.7 Absolute Lymphocytes 1.4 Absolute Monocytes 0.9 Absolute Eosinophils 0.1 Absolute Basophils 0.0 Sodium 129.7 L Potassium 3.7 3.1 L Chloride 103 Carbon Dioxide 20 L Anion Gap 7 BUN < 2 L Creatinine 0.35 L Est GFR ( Amer) > 60 Est GFR (Non-Af Amer) > 60 Glucose 150 H Calcium 8.8 Magnesium 1.7 Total Bilirubin 0.4 AST 22 ALT 31 Alkaline Phosphatase 53 Total Protein 4.3 L Albumin 2.3 L Impressions: Chest X-Ray 06/28/18 10:39 IMPRESSION: NO ACUTE RADIOGRAPHIC FINDING IN THE CHEST. Renal Ultrasound 06/29/18 00:00 IMPRESSION: 1. NORMAL RENAL AND BLADDER ULTRASOUND. 2. SOLID MASS IN THE RIGHT LOBE OF THE LIVER. THE LIVER IS NOT COMPLETELY EVALUATED. RECOMMEND FOLLOW-UP WITH CT OF THE ABDOMEN AND PELVIS TO MORE COMPLETELY EVALUATE THE LIVER FINDING WELL DETERMINE IF ANY OTHER ABNORMAL FINDINGS ARE PRESENT. Abdomen/Pelvis CT 06/29/18 12:30 IMPRESSION: 1. THERE ARE A FEW SCATTERED CYSTS IN THE LIVER. IN THE INFERIOR RIGHT LOWER LOBE THERE IS A SOLID LESION, SOMEWHAT DIFFICULT TO CHARACTERIZE ON NONCONTRAST IMAGING. IF FEASIBLE WOULD RECOMMEND A A CONTRASTED CT OR MRI FOR MORE COMPLETE EVALUATION. 2. PARTIALLY CALCIFIED ROUNDED MASS IN THE SUBPLEURAL POSTERIOR RIGHT LOWER LOBE. THIS COULD REPRESENT ROUND ATELECTASIS ASSOCIATED WITH A CALCIFIED PLEURAL PLAQUE. MALIGNANT PROCESS CANNOT BE EXCLUDED. 3. FLUID IN THE SMALL BOWEL AND COLON WITH MILD SMALL BOWEL DILATION, POSSIBLY MILD ILEUS. NO FINDINGS TO SUGGEST OBSTRUCTION. 4. NO OTHER SIGNIFICANT FINDINGS IN THE ABDOMEN OR PELVIS. Abdomen MRI 06/30/18 00:00 IMPRESSION: 1. Suspicious masses in the right hepatic lobe as above. The dominant lesion in the inferior aspect of the right lobe is amenable to CT-guided biopsy if clinically desired. Chest CT 07/01/18 00:00 IMPRESSION: 1. Medial right lower lobe mass, suspicious for mesothelioma arising in a calcified pleural plaque. Consider biopsy. 2. No acute pulmonary infiltrates. 3. Hepatic lesions, as seen on prior exam. Liver Biopsy CT 07/02/18 07:00 IMPRESSION: CT GUIDED RIGHT LOBE LIVER BIOPSY PERFORMED ABOVE. PATHOLOGY P ENDING. NO IMMEDIATE COMPLICATIONS. Assessment & Plan - Diagnosis (1) Diarrhea Qualifiers: Diarrhea type: unspecified type Qualified Code(s): R19.7 - Diarrhea, unspecified Is this a current diagnosis for this admission?: Yes Plan: Now resolving. On questran and PPI. (2) Liver mass Is this a current diagnosis for this admission?: Yes Plan: Await pathology (3) Hyponatremia Is this a current diagnosis for this admission?: Yes - Plan Summary Plan Summary: Will see again after all pathology is back. All questions were answered. Will follow-up in office if she is discharged prior to path results.
[2018-07-04] MEDS ORDERED: POTASSIUM CHLORIDE 10 MEQ CAPSULE.ER PO ONE (09:00)
--- NOTE | 2018-07-04 09:21 | PDOC PROGRESS REPORT ---
Subjective Progress Note for:: 07/04/18 Subjective:: patient tolerated her procedure well Dr Cornejo's note is reviewed given the findings on her EGD, the differential does include ZE syndrome however this will need to be ruled out I had specifically told her daughter that it was a consideration , not a definitive diagnosis. now it appears that it is part of the chart, and it should not be so. her diarrhea has resolved patient is comfortable will await biopsies, check serum gastric level Reason For Visit: HYPONATREMIA Physical Exam Vital Signs: Temp Pulse Resp BP Pulse Ox 98.2 F 73 18 117/53 L 97 07/03/18 23:20 07/04/18 02:00 07/03/18 23:20 07/03/18 23:20 07/03/18 23:20 Intake & Output 07/03/18 07/04/18 07/05/18 06:59 06:59 06:59 Intake Total 3035 2855 Output Total 0 Balance 3035 2855 Weight 68.6 kg 68.6 kg General appearance: PRESENT: no acute distress, well-developed, well-nourished Head exam: PRESENT: atraumatic, normocephalic Eye exam: PRESENT: EOMI, PERRLA. ABSENT: nystagmus, periorbital swelling, scleral icterus Mouth exam: PRESENT: moist, neck supple Throat exam: ABSENT: tonsillar exudate, tonsillogmegaly Neck exam: ABSENT: meningismus, tenderness, thyromegaly Respiratory exam: PRESENT: symmetrical, unlabored. ABSENT: tachypnea, wheezes Cardiovascular exam: PRESENT: RRR, +S1, +S2 GI/Abdominal exam: PRESENT: soft. ABSENT: rebound, rigid, tenderness Extremities exam: ABSENT: joint swelling Musculoskeletal exam: PRESENT: full ROM Neurological exam: PRESENT: oriented to time, oriented to situation, CN II-XII grossly intact Focused psych exam: ABSENT: restlessness Skin exam: PRESENT: normal color. ABSENT: mottled, pallor, urticaria, vesicles Results Laboratory Results: 07/04/18 04:12 07/04/18 04:12 07/03/18 07/04/18 07/04/18 11:46 04:12 04:12 WBC 10.1 RBC 3.36 L Hgb 11.0 L Hct 30.4 L MCV 90 MCH 32.7 MCHC 36.2 H RDW 13.7 Plt Count 296 Seg Neutrophils % 76.3 Lymphocytes % 13.7 Monocytes % 8.6 Eosinophils % 1.0 Basophils % 0.4 Absolute Neutrophils 7.7 Absolute Lymphocytes 1.4 Absolute Monocytes 0.9 Absolute Eosinophils 0.1 Absolute Basophils 0.0 Sodium 129.7 L Potassium 3.7 3.1 L Chloride 103 Carbon Dioxide 20 L Anion Gap 7 BUN < 2 L Creatinine 0.35 L Est GFR ( Amer) > 60 Est GFR (Non-Af Amer) > 60 Glucose 150 H Calcium 8.8 Magnesium 1.7 Total Bilirubin 0.4 AST 22 ALT 31 Alkaline Phosphatase 53 Total Protein 4.3 L Albumin 2.3 L Impressions: Chest X-Ray 06/28/18 10:39 IMPRESSION: NO ACUTE RADIOGRAPHIC FINDING IN THE CHEST. Renal Ultrasound 06/29/18 00:00 IMPRESSION: 1. NORMAL RENAL AND BLADDER ULTRASOUND. 2. SOLID MASS IN THE RIGHT LOBE OF THE LIVER. THE LIVER IS NOT COMPLETELY EVALUATED. RECOMMEND FOLLOW-UP WITH CT OF THE ABDOMEN AND PELVIS TO MORE COMPL ETELY EVALUATE THE LIVER FINDING WELL DETERMINE IF ANY OTHER ABNORMAL FINDINGS ARE PRESENT. Abdomen/Pelvis CT 06/29/18 12:30 IMPRESSION: 1. THERE ARE A FEW SCATTERED CYSTS IN THE LIVER. IN THE INFERIOR RIGHT LOWER LOBE THERE IS A SOLID LESION, SOMEWHAT DIFFICULT TO CHARACTERIZE ON NONCONTRAST IMAGING. IF FEASIBLE WOULD RECOMMEND A A CONTRASTED CT OR MRI FOR MORE COMPLETE EVALUATION. 2. PARTIALLY CALCIFIED ROUNDED MASS IN THE SUBPLEURAL POSTERIOR RIGHT LOWER LOBE. THIS COULD REPRESENT ROUND ATELECTASIS ASSOCIATED WITH A CALCIFIED PLEURAL PLAQUE. MALIGNANT PROCESS CANNOT BE EXCLUDED. 3. FLUID IN THE SMALL BOWEL AND COLON WITH MILD SMALL BOWEL DILATION, POSSIBLY MILD ILEUS. NO FINDINGS TO SUGGEST OBSTRUCTION. 4. NO OTHER SIGNIFICANT FINDINGS IN THE ABDOMEN OR PELVIS. Abdomen MRI 06/30/18 00:00 IMPRESSION: 1. Suspicious masses in the right hepatic lobe as above. The dominant lesion in the inferior aspect of the right lobe is amenable to CT-guided biopsy if clinically desired. Chest CT 07/01/18 00:00 IMPRESSION: 1. Medial right lower lobe mass, suspicious for mesothelioma arising in a calcified pleural plaque. Consider biopsy. 2. No acute pulmonary infiltrates. 3. Hepatic lesions, as seen on prior exam. Liver Biopsy CT 07/02/18 07:00 IMPRESSION: CT GUIDED RIGHT LOBE LIVER BIOPSY PERFORMED ABOVE. PATHOLOGY PENDING. NO IMMEDIATE COMPLICATIONS. Assessment & Plan - Diagnosis (2) Chronic diarrhea Is this a current diagnosis for this admission?: Yes Plan: rule out ZE syndrome, check serum gastric level following blood work, start PPI since that can increase serum gastrin levels without PPI use, the serum gastric levels need to be significantly elevated to consider the diagnosis patient can be followed up as outpatient follow up on pathology of the polyp that were removed - Time Time Spent with patient: 15-24 minutes
[2018-07-04 09:45] VITALS: BP 119/49
[2018-07-04] MEDS ORDERED: MAGNESIUM OXIDE 400 MG TABLET PO SCH (10:00)
--- NOTE | 2018-07-04 12:58 | PDOC DISCHARGE SUMMARY ---
General - Admit/Disc Date/PCP Admission Date/Primary Care Provider: 06/27/18 23:22 GUALBERTO FERNANDEZ PA-C Discharge Date: 07/04/18 - Discharge Diagnosis (1) Hyponatremia Is this a current diagnosis for this admission?: Yes Summary: History strongly suggests volume overload, hypotonic hyponatremia. 3% saline initiated at 50 mL/h follow-up chemistry every 6 hours.She has hypotonic hypo natremia. She appears euvolemic. Urine osm is low, urine sodium. Sodium has slightly improved. She does report of significant diarrhea. High caffeine intake and limited water intake is more supportive of sodium and water loss. Will consult nephrology for further opinion and recommendation. 06/29: Sodium has improved to 130. Continue normal saline. 06/30: Sodium stable at 130. She continues to have diarrhea. Increase normal saline to 125 cc/hr. 07/01: Sodium remain stable at 130. Increase normal saline to 150 cc/hr as she continues to have persistent diarrhea. Differentials at this time include volume depletion from diarrhea as she continues to have diarrhea. Hyponatremia work-up is not very consistent with dehydration alone. In the setting of possible malignancy, a questionable lung nodule, SIADH is also a possibility hence the equivocal results of work-up. 07/02: Sodium down to 127 today with continued diarrhea. Continue normal saline at 150 cc/hr. Will add Questran bid as she did say the single dose yesterday helped with the frequency and volume of diarrhea. 07/03/2018-serum sodium level is 132 today. Improved from 127. As patient is receiving normal saline at 150 cc/h. Patient is asymptomatic. Patient has one episode of seizure activity in the ER no seizures noticed after the admission. Patient has a liver mass there is a possibility of SIADH causing hyponatremia. Dr. Piña is on board. It is euvolemic. Serum osmolality is low it goes against SIADH. plan to repeat the labs tomorrow. 07/04/2018-serum sodium level today is 129.7. 30. She received normal saline IV fluids during the hospital stay. She is initially she has one episode of seizure activity in the ER. No more seizure activities after the admission. Patient has liver mass and had a biopsy done. Pathology reports are pending. There is a possibility that patient might have SIADH causing hyponatremia. Nephrology consult was done during the hospital stay. Serum osmolality is low and it goes against SIADH diagnosis. It is asymptomatic alert oriented communicating well today. Euvolemic. Patient expresses desire to go home I strongly advised her to follow-up with Dr. Piña as an outpatient and to repeat the labs in 1-2 weeks. (2) Liver mass Is this a current diagnosis for this admission?: Yes Summary: Incidental finding of solid mass on the liver on US. 06/30: She is scheduled for an MRI of the abdomen today. 07/01: Discussed with oncology who has recommended biopsy. Discussed plan of care with patient and family in length. 07/02: She is going for a CT guided liver biopsy today. 07/03/2018-patient underwent CT-guided liver biopsy yesterday. Pathology report is pending. Dr. Cornejo is on board. No acute events after the biopsy. Incidental finding of the solid mass was found on the ultrasound of the liver. Follow-up MRI of the abdomen was done. 07/04/2018-patient had CT-guided liver biopsy on 07/02/2018 for liver mass. Hematology oncology consult was done. No postbiopsy complications. Waiting for the pathology report. Patient is expressing desire to not do further management even though it come up as malignancy. (3) Diarrhea Is this a current diagnosis for this admission?: Yes Summary: Chronic diarrhea. This has been going on for 4 weeks now. C. diff has been negative. No stool WBCs. Also sent for ova and parasites as she says she lived in [facility] for some time. Continue IV fluids. 06/30: Stool culture negative. Increase IV fluids. Will add Immodium. 07/01: Discussed she may need colonoscopy as well. 07/02: She had 2 loose stools this morning but says the Questran helped a lot the the diarrhea. Discussed with Dr. Terrazas over phone who has recommended scheduling her for colonoscopy tomorrow. She will be switched to clears and will be kept NPO post midnight. 07/03/2018-patient has GoLYTELY for preparation to go for colonoscopy today. Patient saying Questran is helping her very much with diarrhea. Patient is n.p.o. for colonoscopy and EGD today. 07/04/2018-diarrhea was resolved. Prescription was given for Questran and to use it as needed basis. EGD and colonoscopy was done no acute pathology was found. 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 Waiting for the biopsy reports. (4) Hypokalemia Is this a current diagnosis for this admission?: Yes Summary: Potassium at 3.1 today. Replace with 40 meqs PO and 40 meqs IV. 07/03/2018-serum potassium level is 3.0 she is receiving IV potassium supplementation plan is to repeat the labs around 11 AM. if The potassium is around 3.4 patient can go for colonoscopy. 07/04/2018-patient serum potassium level today is 3.1 she was given 40 mg of p.o. magnesium supplementation. Patient was advised to do follow-up CBC and chemistry at PCPs office. (5) Hypomagnesemia Is this a current diagnosis for this admission?: Yes Summary: 07/03/2018 latest serum magnesium level is 1.5. To give 2 g of IV magnesium. Plan to repeat the magnesium level tomorrow. Hypomagnesemia most likely secondary to his diarrhea. 07/04/2018-serum magnesium level today was 1.7 magnesium supplementation was given. - Additional Information Resuscitation Status: Full Code Discharge Diet: As Tolerated Discharge Activity: Activity As Tolerated, Balance Activity w/Rest, Slowly Increase Activity Prescriptions: Cholestyramine/Aspartame [Questran Light 4 gm Packet] 4 gm PO BIDP PRN #20 packet PRN Reason: Magnesium Oxide [Mag-Ox 400 mg Tablet] 800 mg PO BID #60 tablet Home Medications: Ascorbic Acid [Vitamin C 500 mg Tablet] 500 mg PO DAILY 12/12/16 Calcium Carbonate/Vitamin D3 [Calcium 500 + Vit D Caplet] 1 each PO DAILY 12/12/16 Flaxseed Oil [Flax Seed Oil] 1,000 mg PO DAILY 12/12/16 Glucosamine Sulfate Dipot Chlr [Glucosamine] 1,000 mg PO DAILY 12/12/16 Multivitamin [Multivitamins] 1 each PO DAILY 12/12/16 Bradford-3 Fatty Acids/Fish Oil [Fish Oil 300 mg Softgel] 1 each PO DAILY 12/12/16 Leslie's Wort 150 mg PO DAILY 12/12/16 Ubidecarenone/Vit E Acet [Co Q-10 100 mg Softgel] 1 each PO DAILY 06/28/18 Cholestyramine/Aspartame [Questran Light 4 gm Packet] 4 gm PO BIDP PRN #20 packet 07/04/18 Magnesium Oxide [Mag-Ox 400 mg Tablet] 800 mg PO BID #60 tablet 07/04/18 History of Present Illness History of Present Illness: SANDRA FLORENTINO is a 87 year old female 87 year old female without significant past medical history who takes diet supplements only who presents after several days of generalized weakness prompti ng evaluation by primary care where she is found to have hyponatremia and referred to the emergency department for treatment. Sodium is found to be 122. Patient denies excessive thirst drinking water all night long and at least 64 ounces of caffeinated beverage during the day. She denies seizure, blackout, headache but admits to generalized weakness and polyuria with clear colored urine. In the emergency room after evaluation nurse reports seizure-like activity. 3% saline is ordered and she is admitted to the ICU. Physical Exam Vital Signs: Temp Pulse Resp BP Pulse Ox 98.2 F 73 18 130/47 H 97 07/04/18 09:20 07/04/18 09:20 07/04/18 09:20 07/04/18 09:20 07/04/18 09:20 Intake & Output 07/03/18 07/04/18 07/05/18 06:59 06:59 06:59 Intake Total 3035 2855 Output Total 0 Balance 3035 2855 Weight 68.6 kg 68.6 kg General appearance: PRESENT: no acute distress, thin Head exam: PRESENT: atraumatic Eye exam: PRESENT: PERRLA Neck exam: ABSENT: carotid bruit, JVD, lymphadenopathy, thyromegaly Respiratory exam: PRESENT: clear to auscultation [place]. ABSENT: rales, rhonchi, wheezes Cardiovascular exam: PRESENT: RRR. ABSENT: diastolic murmur, rubs, systolic murmur GI/Abdominal exam: PRESENT: normal bowel sounds, soft. ABSENT: distended, guarding, mass, organolmegaly, rebound, tenderness Extremities exam: PRESENT: full ROM. ABSENT: calf tenderness, clubbing, pedal edema Neurological exam: PRESENT: alert, awake, oriented to person, oriented to place, oriented to time, oriented to situation, CN II-XII grossly intact. ABSENT: motor sensory deficit Psychiatric exam: PRESENT: appropriate affect, normal mood. ABSENT: homicidal ideation, suicidal ideation Results Laboratory Results: 07/04/18 04:12 07/04/18 04:12 07/04/18 07/04/18 04:12 04:12 WBC 10.1 RBC 3.36 L Hgb 11.0 L Hct 30.4 L MCV 90 MCH 32.7 MCHC 36.2 H RDW 13.7 Plt Count 296 Seg Neutrophils % 76.3 Lymphocytes % 13.7 Monocytes % 8.6 Eosinophils % 1.0 Basophils % 0.4 Absolute Neutrophils 7.7 Absolute Lymphocytes 1.4 Absolute Monocytes 0.9 Absolute Eosinophils 0.1 Absolute Basophils 0.0 Sodium 129.7 L Potassium 3.1 L Chloride 103 Carbon Dioxide 20 L Anion Gap 7 BUN < 2 L Creatinine 0.35 L Est GFR ( Amer) > 60 Est GFR (Non-Af Amer) > 60 Glucose 150 H Calcium 8.8 Magnesium 1.7 Total Bilirubin 0.4 AST 22 ALT 31 Alkaline Phosphatase 53 Total Protein 4.3 L Albumin 2.3 L Impressions: Chest X-Ray 06/28/18 10:39 IMPRESSION: NO ACUTE RADIOGRAPHIC FINDING IN THE CHEST. Renal Ultrasound 06/29/18 00:00 IMPRESSION: 1. NORMAL RENAL AND BLADDER ULTRASOUND. 2. SOLID MASS IN THE RIGHT LOBE OF THE LIVER. THE LIVER IS NOT COMPLETELY EVALUATED. RECOMMEND FOLLOW-UP WITH CT OF THE ABDOMEN AND PELVIS TO MORE COMPLETELY EVALUATE THE LIVER FINDING WELL DETERMINE IF ANY OTHER ABNORMAL FINDINGS ARE PRESENT. Abdomen/Pelvis CT 06/29/18 12:30 IMPRESSION: 1. THERE ARE A FEW SCATTERED CYSTS IN THE LIVER. IN THE INFERIOR RIGHT LOWER LOBE THERE IS A SOLID LESION, SOMEWHAT DIFFICULT TO CHARACTERIZE ON NONCONTRAST IMAGING. IF FEASIBLE WOULD RECOMMEND A A CONTRASTED CT OR MRI FOR MORE COMPLETE EVALUATION. 2. PARTIALLY CALCIFIED ROUNDED MASS IN THE SUBPLEURAL POSTERIOR RIGHT LOWER LOBE. THIS COULD REPRESENT ROUND ATELECTASIS ASSOCIATED WITH A CALCIFIED PLEURAL PLAQUE. MALIGNANT PROCESS CANNOT BE EXCLUDED. 3. FLUID IN THE SMALL BOWEL AND COLON WITH MILD SMALL BOWEL DILATION, POSSIBLY MILD ILEUS. NO FINDINGS TO SUGGEST OBSTRUCTION. 4. NO OTHER SIGNIFICANT FINDINGS IN THE ABDOMEN OR PELVIS. Abdomen MRI 06/30/18 00:00 IMPRESSION: 1. Suspicious masses in the right hepatic lobe as above. The dominant lesion in the inferior aspect of the right lobe is amenable to CT-guided biopsy if clinically desired. Chest CT 07/01/18 00:00 IMPRESSION: 1. Medial right lower lobe mass, suspicious for mesothelioma arising in a calcified pleural plaque. Consider biopsy. 2. No acute pulmonary infiltrates. 3. Hepatic lesions, as seen on prior exam. Liver Biopsy CT 07/02/18 07:00 IMPRESSION: CT GUIDED RIGHT LOBE LIVER BIOPSY PERFORMED ABOVE. PATHOLOGY PENDING. NO IMMEDIATE COMPLICATIONS. Qualifiers - * PATIENT BEING DISCHARGED WITH ANY OF THE FOLLOWING DIAGNOSIS: No VTE patient discharged on overlapping Therapy?: No Plan Discharge Plan: Patient is going home today. Time Spent: Less than 30 Minutes
== END 2018-07-04 09:49 | disposition home or self-care (01) | DRG 641 ==
LOC: ER 17:59 → EH 23:22 → ICU 06-28 05:10 → 4N 06-28 18:55
PROVIDERS: ADMIT Internal Medicine; ATTEND Internal Medicine
PROC: 0FB13ZX Excision of Right Lobe Liver, Percutaneous Approach, Diagnostic (ICD-10-PCS; 2018-07-02)
PROC: 0DBK8ZX Excision of Ascending Colon, Via Natural or Artificial Opening Endoscopic, Diagnostic (ICD-10-PCS; principal; 2018-07-03 12:30)
PROC: 0DD68ZX Extraction of Stomach, Via Natural or Artificial Opening Endoscopic, Diagnostic (ICD-10-PCS; 2018-07-03 12:30)
DX: E87.1 Hypo-osmolality and hyponatremia (principal); R16.0 Hepatomegaly, not elsewhere classified; I95.1 Orthostatic hypotension; E87.6 Hypokalemia; E83.42 Hypomagnesemia; K63.5 Polyp of colon; K29.70 Gastritis, unspecified, without bleeding; E86.0 Dehydration; E78.00 Pure hypercholesterolemia, unspecified; R19.7 Diarrhea, unspecified
CPT/HCPCS: 36415; 43239; 45380; 45385; 47000; 71045; 71250; 74176; 74183; 76770; 80048; 80051; 80053; 81001; 813; 82272; 83690; 83735; 83930; 83935; 84132; 84300; 84443; 85025; 85610; 85730; 87045; 87177; 87205; 87493; 88305; 88313; 88341; 88342; 89055; 93005; 93010; 96374; 99285; A9576; J1940; J2250; J2405; J2704; J3010; J3475; J3480; J3490; J7030; S0164

== ENCOUNTER → 2018-07-13 | Outpatient (CLI) | payer MEDICARE ==
[2018-07-13 17:24] LABS: ALBUMIN 3.3 g/dL (3.5-5.0); ANION GAP 11 (5-19); BLOOD UREA NITROGEN 9 mg/dL (7-20); CALCIUM 9.7 mg/dL (8.4-10.2); CARBON DIOXIDE 25 mmol/L (22-30); CHLORIDE 92 mmol/L (98-107); GLUCOSE 96 mg/dL (75-110); PHOSPHORUS 3.5 mg/dL (2.5-4.5); POTASSIUM 4.4 mmol/L (3.6-5.0); SODIUM 128.4 mmol/L (137-145)
== END ==
LOC: OD 16:14
PROVIDERS: ATTEND Internal Medicine Nephrology
DX: E87.0 Hyperosmolality and hypernatremia (principal); E83.41 Hypermagnesemia; E87.6 Hypokalemia
CPT/HCPCS: 36415; 80048; 82040; 83735; 84100

== ENCOUNTER 2018-10-25 16:21 | Emergency (ER) | payer MEDICARE ==
[2018-10-25] MEDS ORDERED: METOCLOPRAMIDE HCL INJ/PF 10 MG/2 ML SDV IV ONE (17:03)
[2018-10-25] MEDS ORDERED: NORMAL SALINE 500 ML IV ONE (17:03)
[2018-10-25] MEDS ORDERED: DIPHENHYDRAMINE HCL 50 MG/ML VIAL IV ONE (17:03)
--- NOTE | 2018-10-25 17:06 | ER Document Report ---
ED Medical Screen (RME) - General Chief Complaint: Vomiting Stated Complaint: VOMITING Time Seen by Provider: 10/25/18 17:02 Primary Care Provider: YURIY LOPEZ MD [Primary Care Provider] - Follow up as needed Mode of Arrival: Wheelchair Information source: Patient Notes: 87-year-old female presented to ED for complaint of nausea vomiting and diarrhea. She states she had diarrhea for multiple months but the nausea and vomiting started after she went to [facility]. 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 She is on and half hospice with her daughter. Daughter states that they were in here on Monday and she had a very low potassium and she got came home. She states she would like her mother to be treated and sent home again she does not want to be admitted as she is on in- house hospice she just wants comfort measures in the emergency room. I have greeted and performed a rapid initial assessment of this patient. A comprehensive ED assessment and evaluation of the patient, analysis of test results and completion of medical decision making process will be conducted by an additional ED providers. Dictation of this chart was performed using voice recognition software; therefore, there may be some unintended grammatical errors. TRAVEL OUTSIDE OF THE [place] IN LAST 30 DAYS: No - Related Data Allergies/Adverse Reactions: morphine Adverse Reaction (Verified 10/25/18 16:22) Nausea Past Medical History - Past Medical History Cardiac Medical History: Reports: Hx Hypercholesterolemia Denies: Hx Heart Attack, Hx Hypertension Pulmonary Medical History: Denies: Hx Asthma Neurological Medical History: Denies: Hx Cerebrovascular Accident, Hx Seizures Renal/ Medical History: Denies: Hx Peritoneal Dialysis GI Medical History: Denies: Hx Hepatitis, Hx Hiatal Hernia, Hx Ulcer Infectious Medical History: Denies: Hx Hepatitis Past Surgical History: Reports: Hx Hysterectomy. Denies: Hx Mastectomy, Hx Open Heart Surgery, Hx Pacemaker - Immunizations Immunizations up to date: Yes Hx Diphtheria, Pertussis, Tetanus Vaccination: Yes Physical Exam - Vital signs Vitals: Temp Pulse Resp BP Pulse Ox 97.5 F 94 18 103/65 92 10/25/18 16:36 10/25/18 16:36 10/25/18 16:36 10/25/18 16:36 10/25/18 16:36 Course - Vital Signs Vital signs: Temp Pulse Resp BP Pulse Ox 97.5 F 94 18 103/65 92 08/08/19 16:36 10/25/18 16:36 10/25/18 16:36 10/25/18 16:36 10/25/18 16:36 Doctor's Discharge - Discharge Referrals: YURIY LOPEZ MD [Primary Care Provider] - Follow up as needed
[2018-10-25 17:34] LABS: HEMATOCRIT 47.4 % (36.0-47.0); HEMOGLOBIN 16.6 g/dL (12.0-15.5); MEAN CORPUSCULAR HEMOGLOBIN 31.8 pg (27.0-33.4); MEAN CORPUSCULAR HGB CONC 35.1 g/dL (32.0-36.0); RED BLOOD COUNT 5.23 10^6/uL (3.72-5.28); RED CELL DISTRIBUTION WIDTH 16.8 % (11.5-14.0)
[2018-10-25 17:53] LABS: ALBUMIN 4.5 g/dL (3.5-5.0); ALKALINE PHOSPHATASE 180 U/L (38-126); ANION GAP 14 (5-19); ASPARTATE AMINO TRANSFERASE 33 U/L (14-36); BILIRUBIN,DIRECT 0.2 mg/dL (0.0-0.4); BILIRUBIN,TOTAL 0.4 mg/dL (0.2-1.3); BLOOD UREA NITROGEN 20 mg/dL (7-20); CALCIUM 11.5 mg/dL (8.4-10.2); CARBON DIOXIDE 13 mmol/L (22-30); CHLORIDE 104 mmol/L (98-107); GLUCOSE 192 mg/dL (75-110); POTASSIUM 3.4 mmol/L (3.6-5.0)
[2018-10-25 17:57] LABS: MEAN CORPUSCULAR VOLUME 91 fl (80-97); PLATELET COUNT 386 10^3/uL (150-450)
[2018-10-25 17:58] LABS: ABSOLUTE LYMPHOCYTES# (MANUAL) 0.6 10^3/uL (0.5-4.7); ABSOLUTE MONOCYTES # (MANUAL) 0.6 10^3/uL (0.1-1.4); ANISOCYTOSIS SLIGHT; BAND NEUTROPHILS % (MANUAL) 3 % (3-5); BASOPHILS % (MANUAL) 0 % (0-2); EOSINOPHILS % (MANUAL) 0 % (0-6); LYMPHOCYTES % (MANUAL) 3 % (13-45); MONOCYTES % (MANUAL) 3 % (3-13); PLATELET CLUMPS PRESENT; POIKILOCYTOSIS 1+; POLYCHROMASIA SLIGHT; SEGMENTED NEUTROPHILS % (MAN) 91 % (42-78); TARGET CELLS SLIGHT; TOTAL CELLS COUNTED 100
[2018-10-25] MEDS ORDERED: NORMAL SALINE 1000 ML 1,000 ML IV ONE (20:13)
[2018-10-25] MEDS ORDERED: CEFTRIAXONE INJ 1000 MG VIAL IV ONE (20:14)
--- NOTE | 2018-10-25 20:25 | ER Document Report ---
ED General - General Chief Complaint: Vomiting Stated Complaint: VOMITING Time Seen by Provider: 10/25/18 17:02 Primary Care Provider: YURIY LOPEZ MD [ACTIVE STAFF] - Follow up as needed Mode of Arrival: Wheelchair TRAVEL OUTSIDE OF THE [place] IN LAST 30 DAYS: No - HPI Notes: Patient is a 87-year-old female with stage IV mesothelioma that presents to the emergency department for chief complaint of vomiting and diarrhea. Patient's daughter is providing HPI. Daughter states that patient has chronic diarrhea however she has had increased amount of stools over the last few days. Patient also has had vomiting which began this morning. She states multiple episodes of emesis today and a difficult time getting patient to take her medications. She has received 3 doses of Zofran at home which temporarily improves the emesis. Patient is currently on Omnicef for urinary tract infection. She had completed a 7-day course of Bactrim just prior to starting the Omnicef. Patient has hospice and her daughter does not wish for her to be admitted to the hospital. Past Medical History: Mesothelioma Past Surgical History: Reviewed in chart Social History: Lives at home with her daughter Family History: Reviewed and noncontributory for presenting illness Allergies: Reviewed, see documented allergy list. REVIEW OF SYSTEMS: CONSTITUTIONAL : Unable to obtain because of patient's somnolence PHYSICAL EXAMINATION: Vital signs reviewed, nursing noted reviewed. GENERAL: Somnolent, thin, and in no acute distress. HEAD: Atraumatic, normocephalic. EYES: Eyes appear normal, extraocular movements intact, sclera anicteric, conjunctiva are normal. ENT: nares patent, oropharynx clear without exudates. Mildly dry mucous membranes. NECK: Normal range of motion, supple without lymphadenopathy LUNGS: Breath sounds clear to auscultation bilaterally and equal. No wheezes rales or rhonchi. HEART: Regular rate and rhythm without murmurs ABDOMEN: Soft, nontender, normoactive bowel sounds. No rebound, guarding, or rigidity. No masses appreciated. EXTREMITIES: Nontender, good range of motion, no pitting or edema. NEUROLOGICAL: Somnolent wakes to verbal stimuli, moves all extremities spontaneously Motor and sensory grossly intact on exam. PSYCH: Normal mood, normal affect. SKIN: Warm, Dry, normal turgor, no rashes or lesions noted on exposed skin - Related Data Allergies/Adverse Reactions: morphine Adverse Reaction (Verified 10/25/18 16:22) Nausea Past Medical History - General Information source: Patient - Social History Smoking Status: Never Smoker Family History: Hypertension Patient has suicidal ideation: No Patient has homicidal ideation: No - Past Medical History Cardiac Medical History: Reports: Hx Hypercholesterolemia Denies: Hx Heart Attack, Hx Hypertension Pulmonary Medical History: Denies: Hx Asthma Neurological Medical History: Denies: Hx Cerebrovascular Accident, Hx Seizures Renal/ Medical History: Denies: Hx Peritoneal Dialysis GI Medical History: Denies: Hx Hepatitis, Hx Hiatal Hernia, Hx Ulcer Infectious Medical History: Denies: Hx Hepatitis Past Surgical History: Reports: Hx Hysterectomy. Denies: Hx Mastectomy, Hx Open Heart Surgery, Hx Pacemaker - Immunizations Immunizations up to date: Yes Hx Diphtheria, Pertussis, Tetanus Vaccination: Yes Physical Exam - Vital signs Vitals: Temp Pulse Resp BP Pulse Ox 97.5 F 94 18 103/65 92 10/25/18 16:36 10/25/18 16:36 10/25/18 16:36 10/25/18 16:36 10/25/18 16:36 Course - Re-evaluation Re-evalutation: 10/25/18 20:25 Vitals reviewed. Nursing notes reviewed. Patient is somnolent from receiving Benadryl in triage however she has not had any vomiting since receiving the Reglan and Benadryl. Patient also received a 500 mL fluid bolus. Her vital signs at presentation were within normal limits and she was afebrile. Patient has not had any complaints of pain. She is comfort measures only with in-home hospice because of her stage IV mesothelioma. Patient's lab work today shows a worsening leukocytosis. Patient has not had any dose of the Omnicef today. She did have a full dose yesterday and the day prior. Patient likely failing the Omnicef. There is no urine culture available. Patient's antibiotic will be changed. I did offer admission to the hospital for comfort measures and ant ibiotics however patient's daughter strongly wishes for her to be discharged home. She has in-home hospice that can redraw blood work and recheck vital signs tomorrow. Patient also recommended to follow closely with her oncologist and primary care doctor. Daughter told that she can return at any point in time for further care. Patient will be given a dose of IV Rocephin in the ED prior to discharge. Laboratory 10/25/18 10/25/18 17:17 17:17 WBC 21.0 H RBC 5.23 Hgb 16.6 H Hct 47.4 H MCV 91 D MCH 31.8 MCHC 35.1 RDW 16.8 H Plt Count 386 Total Counted 100 Seg Neutrophils % Not Reportable Seg Neuts % (Manual) 91 H Band Neutrophils % 3 Lymphocytes % Not Reportable Lymphocytes % (Manual) 3 L Monocytes % Not Reportable Monocytes % (Manual) 3 Eosinophils % Not Reportable Eosinophils % (Manual) 0 Basophils % Not Reportable Basophils % (Manual) 0 Absolute Neutrophils Not Reportable Abs Neuts (Manual) 19.7 H Absolute Lymphocytes Not Reportable Abs Lymphs (Manual) 0.6 Absolute Monocytes Not Reportable Abs Monocytes (Manual) 0.6 Absolute Eosinophils Not Reportable Absolute Eos (Manual) 0.0 Absolute Basophils Not Reportable Abs Basophils (Manual) 0.0 Clumped Platelets PRESENT Platelet Comment Not Reportable Polychromasia SLIGHT Poikilocytosis 1+ Anisocytosis SLIGHT Target Cells SLIGHT Sodium 130.8 L Potassium 3.4 L Chloride 104 Carbon Dioxide 13 L Anion Gap 14 BUN 20 Creatinine 0.80 Est GFR ( Amer) > 60 Est GFR (Non-Af Amer) > 60 Glucose 192 H Calcium 11.5 H Total Bilirubin 0.4 Direct Bilirubin 0.2 Neonat Total Bilirubin Not Reportable Neonat Direct Bilirubin Not Reportable Neonat Indirect Bili Not Reportable AST 33 ALT 50 Alkaline Phosphatase 180 H Total Protein 7.0 Albumin 4.5 Lipase 246.6 - Vital Signs Vital signs: Temp Pulse Resp BP Pulse Ox 97.5 F 94 18 103/65 92 10/25/18 16:36 10/25/18 16:36 10/25/18 16:36 10/25/18 16:36 10/25/18 16:36 - Laboratory Result Diagrams: 10/25/18 17:17 10/25/18 17:17 Laboratory results interpreted by me: 10/25/18 10/25/18 17:17 17:17 WBC 21.0 H Hgb 16.6 H Hct 47.4 H RDW 16.8 H Seg Neuts % (Manual) 91 H Lymphocytes % (Manual) 3 L Abs Neuts (Manual) 19.7 H Sodium 130.8 L Potassium 3.4 L Carbon Dioxide 13 L Glucose 192 H Calcium 11.5 H Alkaline Phosphatase 180 H Discharge - Discharge Clinical Impression: Vomiting and diarrhea Urinary tract infection Qualifiers: Urinary tract infection type: site unspecified Hematuria presence: without hematuria Qualified Code(s): N39.0 - Urinary tract infection, site not specified Leukocytosis Qualifiers: Leukocytosis type: unspecified Qualified Code(s): D72.829 - Elevated white blood cell count, unspecified Condition: Stable Disposition: HOME, SELF-CARE Instructions: Urinary Tract Infection ([facility]) Additional Instructions: Please return to the emergency department if you have any worsening, or concern of your symptoms. Please return to the emergency department if you develop fever, difficulty breathing, severe abdominal pain, or ongoing vomiting. Please follow-up with your primary care physician in 1-2 days and any other recommended physicians. If prescribed, take all medications as directed. If you have any questions or concerns do not hesitate to return the emergency department for evaluation. Prescriptions: Promethazine HCl [Phenergan 25 mg Supp.rect] 25 mg AL Q4HP PRN #30 supp.rect PRN Reason: Vomiting Ciprofloxacin HCl [Cipro 500 mg Tablet] 500 mg PO BID #20 tablet Referrals: YURIY LOPEZ MD [ACTIVE STAFF] - Follow up as needed JESSICA GONZALES MD [ACTIVE STAFF] - Follow up tomorrow
[2018-10-25] MEDS ORDERED: PROMETHAZINE HCL INJ 25 MG/1 ML VIAL IV ONE (20:43)
[2018-10-25 22:29] VITALS: BP 128/68
== END 2018-10-25 22:25 | disposition home or self-care (01) ==
LOC: ER 16:21
DX: N39.0 Urinary tract infection, site not specified (principal); D72.829 Elevated white blood cell count, unspecified; R11.10 Vomiting, unspecified; R19.7 Diarrhea, unspecified; C45.9 Mesothelioma, unspecified
CPT/HCPCS: 36415; 83690; 85025; 80053; J1200; J2765; J2550; J0696; J7030; J7040; 96361; 96365; 96375; 99284

== ENCOUNTER 2018-10-26 18:10 | Inpatient (IN) | payer MEDICARE ==
--- NOTE | 2018-10-26 18:26 | ER Document Report ---
ED General - General Stated Complaint: VOMITING Time Seen by Provider: 10/26/18 18:25 Primary Care Provider: GUALBERTO FERNANDEZ PA-C [Primary Care Provider] - Follow up as needed Notes: 87-year-old female to the emergency department for evaluation of possible GI bleed, intractable vomiting. Patient is a hospice patient. Has metastatic end-stage mesothelioma with multiple metastasis. Began vomiting uncontrollably for the last couple of days. Was seen here yesterday and diagnosed with UTI. Was started on antibiotics. Returns today with increased somnolence, vomiting up blood. Daughter is here. Power of magnetic resonance imaging director. States that she is a DNR and is on hospice. Requesting transfer to hospice hospital in [place]. TRAVEL OUTSIDE OF THE [place] IN LAST 30 DAYS: No - HPI Onset: Yesterday Onset/Duration: Worse Severity: Moderate Pain Level: 4 Context: Abdomen - Related Data Allergies/Adverse Reactions: morphine Adverse Reaction (Verified 10/25/18 16:22) Nausea Past Medical History - General Information source: Relative, [facility] Records Cannot obtain history due to: Altered mental status - Social History Smoking Status: Unknown if Ever Smoked Lives with: Family Family History: Hypertension - Past Medical History Cardiac Medical History: Reports: Hx Hypercholesterolemia Denies: Hx Heart Attack, Hx Hypertension Pulmonary Medical History: Denies: Hx Asthma Neurological Medical History: Denies: Hx Cerebrovascular Accident, Hx Seizures Renal/ Medical History: Denies: Hx Peritoneal Dialysis Malignancy Medical History: Reports: Other - Mesothelioma with metastasis. GI Medical History: Denies: Hx Hepatitis, Hx Hiatal Hernia, Hx Ulcer Infectious Medical History: Denies: Hx Hepatitis Past Surgical History: Reports: Hx Hysterectomy. Denies: Hx Mastectomy, Hx Open Heart Surgery, Hx Pacemaker - Immunizations Immunizations up to date: Yes Hx Diphtheria, Pertussis, Tetanus Vaccination: Yes Review of Systems - Review of Systems -: Yes ROS unobtainable due to patient's medical condition Physical Exam - Vital signs Vitals: BP 142/78 H 10/26/18 18:28 Interpretation: Tachycardic, Tachypneic, Febrile - Notes Notes: Very pale, very ill-appearing. - General General appearance: Lethargic In distress: Moderate - HEENT Head: Normocephalic, Atraumatic Eyes: Normal Pupils: PERRL Mucous membranes: Dry - Respiratory Respiratory status: Tachypnea Chest status: Nontender Breath sounds: Rhonchi - coarse rhonchi bilaterally Chest palpation: Normal - Cardiovascular Rhythm: Tachycardia Heart sounds: Normal auscultation Murmur: No - Abdominal Inspection: Normal Distension: No distension Bowel sounds: Normal Tenderness: Tender - Mild with no guarding or rebound. Organomegaly: No organomegaly - Back Back: Normal, Nontender - Extremities General upper extremity: Normal inspection, Nontender, Normal color, Normal ROM, Normal temperature General lower extremity: Normal inspection, Nontender, Edema, Normal color, Normal ROM, Normal temperature. No: Marya's sign - Neurological Neuro grossly intact: Yes Cognition: Confused [place] Coma Scale Eye Opening: Spontaneous [place] Coma Scale Verbal: Confused Ekrry Coma Scale Motor: Obeys Commands [place] Coma Scale Total: 14 Speech: Normal Motor strength normal: LUE, RUE, LLE, RLE Sensory: Normal - Skin Skin Temperature: Warm Skin Moisture: Dry Skin Color: Pale Course - Re-evaluation Re-evalutation: 10/26/18 20:22 Patient has reported vomiting blood. Protonix drip started. Has a WBC count of 40,000. On hospice. Is DNR. Daughter is here. Very reasonable. She would like to try and get patient admitted to the hospice care center in [place]. I have spoken with Kassie with [facility] and she is going to work on getting patient admitted. The daughter realizes that she is in critical condition and would like to treat what is possible and within reason. I think at this time giving her IV fluids, antibiotics are reasonable. I am also giving her some Compazine and Ativan to help with nausea. We will give her some Protonix as well. Her potassium is low and I may decide to treat that but we shall see. 10/26/18 20:25 Laboratory 10/26/18 10/26/18 10/26/18 18:30 18:36 18:36 WBC 40.4 H* RBC 4.71 Hgb 15.0 Hct 43.1 MCV 92 MCH 31.9 MCHC 34.9 RDW 16.9 H Plt Count 336 Total Counted 100 Seg Neutrophils % Not Reportable Seg Neuts % (Manual) 85 H Band Neutrophils % 3 Lymphocytes % Not Reportable Lymphocytes % (Manual) 0 L Atypical Lymphs % 1 Monocytes % Not Reportable Monocytes % (Manual) 11 Eosinophils % Not Reportable Eosinophils % (Manual) 0 Basophils % Not Reportable Basophils % (Manual) 0 Absolute Neutrophils Not Reportable Abs Neuts (Manual) 35.6 H Absolute Lymphocytes Not Reportable Abs Lymphs (Manual) 0.4 L Absolute Monocytes Not Reportable Abs Monocytes (Manual) 4.4 H Absolute Eosinophils Not Reportable Absolute Eos (Manual) 0.0 Absolute Basophils Not Reportable Abs Basophils (Manual) 0.0 Toxic Granulation SLIGHT Toxic Vacuolation PRESENT Dohle Bodies PRESENT Platelet Comment ADEQUATE Polychromasia SLIGHT Poikilocytosis 1+ Anisocytosis 1+ Target Cells SLIGHT PT INR APTT Sodium 132.1 L Potassium 2.7 L* Chloride 106 Carbon Dioxide 14 L Anion Gap 12 BUN 55 H Creatinine 0.82 Est GFR ( Amer) > 60 Est GFR (Non-Af Amer) > 60 Glucose 232 H Lactic Acid 2.0 Calcium 10.9 H Total Bilirubin 0.3 Direct Bilirubin 0.2 Neonat Total Bilirubin Not Reportable Neonat Direct Bilirubin Not Reportable Neonat Indirect Bili Not Reportable AST 26 ALT 28 Alkaline Phosphatase 103 Total Protein 5.1 L Albumin 3.0 L Lipase 79.1 10/26/18 18:36 WBC RBC Hgb Hct MCV MCH MCHC RDW Plt Count Total Counted Seg Neutrophils % Seg Neuts % (Manual) Band Neutrophils % Lymphocytes % Lymphocytes % (Manual) Atypical Lymphs % Monocytes % Monocytes % (Manual) Eosinophils % Eosinophils % (Manual) Basophils % Basophils % (Manual) Absolute Neutrophils Abs Neuts (Manual) Absolute Lymphocytes Abs Lymphs (Manual) Absolute Monocytes Abs Monocytes (Manual) Absolute Eosinophils Absolute Eos (Manual) Absolute Basophils Abs Basophils (Manual) Toxic Granulation Toxic Vacuolation Dohle Bodies Platelet Comment Polychromasia Poikilocytosis Anisocytosis Target Cells PT 15.1 INR 1.19 APTT 25.6 Sodium Potassium Chloride Carbon Dioxide Anion Gap BUN Creatinine Est GFR ( Amer) Est GFR (Non-Af Amer) Glucose Lactic Acid Calcium Total Bilirubin Direct Bilirubin Neonat Total Bilirubin Neonat Direct Bilirubin Neonat Indirect Bili AST ALT Alkaline Phosphatase Total Protein Albumin Lipase 10/26/18 20:[address] 10/26/18 00:00 IMPRESSION: NO ACUTE INTRACRANIAL FINDINGS. EVIDENCE OF ACUTE STROKE: NO. Chest X-Ray 10/26/18 19:03 IMPRESSION: NO ACUTE FINDINGS. 10/26/18 22:04 There is no immediate bed available at this hospice hospital/facility so will admit at this time for comfort measures. Consult with hospitalist who is able to do this as well. - Vital Signs Vital signs: Temp Pulse Resp BP Pulse Ox 100.7 F H 20 131/76 H 10/26/18 18:30 10/26/18 21:01 10/26/18 21:01 - Laboratory Result Diagrams: 10/26/18 18:36 10/26/18 18:36 Laboratory results interpreted by me: 10/26/18 10/26/18 18:36 18:36 WBC 40.4 H* RDW 16.9 H Seg Neuts % (Manual) 85 H Lymphocytes % (Manual) 0 L Abs Neuts (Manual) 35.6 H Abs Lymphs (Manual) 0.4 L Abs Monocytes (Manual) 4.4 H Sodium 132.1 L Potassium 2.7 L* Carbon Dioxide 14 L BUN 55 H Glucose 232 H Calcium 10.9 H Total Protein 5.1 L Albumin 3.0 L - EKG Interpretation by Me EKG shows normal: Intervals, QRS Complexes, ST-T Waves Rate: Tachycardia Critical Care Note - Critical Care Note Total time excluding time spent on procedures (mins): 60 Comments: Tachycardia, GI bleed, leukocytosis, coordination of care, consultation with specialist., Alternative history source Discharge - Discharge Clinical Impression: Mesothelioma of lung, Gastrointestinal bleeding, upper Condition: Poor Disposition: ADMITTED INPATIENT Admitting Provider: Ollie (Hospitalist) Unit Admitted: Medical Floor Referrals: GUALBERTO FERNANDEZ PA-C [Primary Care Provider] - Follow up as needed
[2018-10-26] MEDS ORDERED: LORAZEPAM INJ 2 MG/1 ML VIAL IV ONE (18:41)
[2018-10-26] MEDS ORDERED: NORMAL SALINE 1000 ML 1,000 ML IV ONE ×2 (18:41→19:01)
[2018-10-26] MEDS ORDERED: PROCHLORPERAZINE EDISYLATE INJ 10 MG/2 ML VIAL IV ONE (18:42)
[2018-10-26] MEDS ORDERED: PANTOPRAZOLE SODIUM 40 MG VIAL IV ONE (18:44)
[2018-10-26] MEDS ORDERED: FAMOTIDINE INJ/PF 20 MG/2 ML SDV IV ONE (18:44)
--- NOTE | 2018-10-26 18:49 | RADIOLOGY REPORT (SQ) ---
EXAM DESCRIPTION: CT HEAD WITHOUT COMPLETED DATE/TIME: 10/26/2018 6:38 pm REASON FOR STUDY: fall COMPARISON: None. TECHNIQUE: Axial images acquired through the brain without intravenous contrast. Images reviewed wit h bone, brain and subdural windows. Images stored on PACS. All CT scanners at this facility use dose modulation, iterative reconstruction, and/or weight based d osing when appropriate to reduce radiation dose to as low as reasonably achievable (ALARA). [facility]: Dose Right [facility]: CareDose [facility]: Dose Right [facility]: Teradose 4D [facility]: Smart [place] RADIATION DOSE: CT Rad equipment meets quality standard of care and radiation dose reduction techniq ues were employed. CTDIvol: 55.2 mGy. DLP: 1029 mGy-cm.. LIMITATIONS: None. FINDINGS: VENTRICLES: Normal size and contour. CEREBRUM: No masses. No hemorrhage. No midline shift. Age appropriate white matter. No evidence for a cute infarction. CEREBELLUM: No masses. No hemorrhage. No alteration of density. No evidence for acute infarction. EXTRA-AXIAL SPACES: No fluid collections. ORBITS AND GLOBE: No intra- or extraconal masses. Normal contour of globe without masses. CALVARIUM: No fracture. PARANASAL SINUSES: No fluid or mucosal thickening. SOFT TISSUES: No mass or hematoma. OTHER: No other significant finding. IMPRESSION: NO ACUTE INTRACRANIAL FINDINGS. EVIDENCE OF ACUTE STROKE: NO. TECHNICAL DOCUMENTATION: JOB ID: [id number] [place]-72 Quality ID # [id number]: Final reports with documentation of one or more dose reduction techniques (e.g., Au tomated exposure control, adjustment of the mA and/or kV according to patient size, use of iterative reconstruction technique) 2010 [employer]- All Rights Reserved Reading location - IP/workstation name: [email or web address]
[2018-10-26 18:57] LABS: HEMATOCRIT 43.1 % (36.0-47.0); MEAN CORPUSCULAR HEMOGLOBIN 31.9 pg (27.0-33.4); MEAN CORPUSCULAR HGB CONC 34.9 g/dL (32.0-36.0); MEAN CORPUSCULAR VOLUME 92 fl (80-97); PLATELET COUNT 336 10^3/uL (150-450); RED BLOOD COUNT 4.71 10^6/uL (3.72-5.28); RED CELL DISTRIBUTION WIDTH 16.9 % (11.5-14.0)
[2018-10-26] MEDS ORDERED: PIPERACILLIN/TAZOBACTAM 3.375 GM VIAL IV ONE (19:00)
[2018-10-26 19:02] LABS: WHITE BLOOD COUNT 40.4 10^3/uL (4.0-10.5)
[2018-10-26 19:04] LABS: ABSOLUTE LYMPHOCYTES# (MANUAL) 0.4 10^3/uL (0.5-4.7); ABSOLUTE MONOCYTES # (MANUAL) 4.4 10^3/uL (0.1-1.4); BAND NEUTROPHILS % (MANUAL) 3 % (3-5); BASOPHILS % (MANUAL) 0 % (0-2); EOSINOPHILS % (MANUAL) 0 % (0-6); INTERNATIONAL RATION (INR) 1.19; LYMPHOCYTES % (MANUAL) 0 % (13-45); MONOCYTES % (MANUAL) 11 % (3-13); PROTHROMBIN TIME 15.1 SEC (11.4-15.4); SEGMENTED NEUTROPHILS % (MAN) 85 % (42-78); TOTAL CELLS COUNTED 100
[2018-10-26 19:05] LABS: PARTIAL THROMBOPLASTIN TIME 25.6 SEC (23.5-35.8); PLATELET COMMENT ADEQUATE
[2018-10-26 19:06] LABS: TOXIC GRANULATION SLIGHT; TOXIC VACUOLATION PRESENT
[2018-10-26 19:07] LABS: ANISOCYTOSIS 1+; POIKILOCYTOSIS 1+; POLYCHROMASIA SLIGHT; TARGET CELLS SLIGHT
[2018-10-26 19:10] LABS: ALKALINE PHOSPHATASE 103 U/L (38-126); ANION GAP 12 (5-19); ASPARTATE AMINO TRANSFERASE 26 U/L (14-36); BILIRUBIN,DIRECT 0.2 mg/dL (0.0-0.4); BILIRUBIN,TOTAL 0.3 mg/dL (0.2-1.3); BLOOD UREA NITROGEN 55 mg/dL (7-20); CALCIUM 10.9 mg/dL (8.4-10.2); CARBON DIOXIDE 14 mmol/L (22-30); CHLORIDE 106 mmol/L (98-107); GLUCOSE 232 mg/dL (75-110); TOTAL PROTEIN 5.1 g/dL (6.3-8.2)
[2018-10-26 19:20] LABS: POTASSIUM 2.7 mmol/L (3.6-5.0)
--- NOTE | 2018-10-26 19:45 | RADIOLOGY REPORT (SQ) ---
EXAM DESCRIPTION: CHEST SINGLE VIEW COMPLETED DATE/TIME: 10/26/2018 7:16 pm REASON FOR STUDY: sob COMPARISON: 06/28/2018 TECHNIQUE: Single frontal radiographic view of the chest acquired. NUMBER OF VIEWS: One view. LIMITATIONS: RPO positioning. FINDINGS: LUNGS AND PLEURA: No pneumothorax. No consolidation or pleural effusion. MEDIASTINUM AND HILAR STRUCTURES: Stable. HEART AND VASCULAR STRUCTURES: Stable. BONES: No acute findings. HARDWARE: None in the chest. OTHER: No other significant finding. IMPRESSION: NO ACUTE FINDINGS. TECHNICAL DOCUMENTATION: JOB ID: [id number] [place]-72 2010 [employer]- All Rights Reserved Reading location - IP/workstation name: [email or web address]
[2018-10-26] MEDS: POTASSI CL 20 MEQ/50 ML RIDER 20 MEQ/50 ML RTUPB IV SCH ×2 (20:47→22:45)
[2018-10-26] MEDS ORDERED: FENTANYL CITRATE INJ/PF 100 MCG/2 ML AMPUL IV ONE (20:50)
[2018-10-26] MEDS ORDERED: ONDANSETRON HCL INJ/PF 4 MG/2 ML SDV IV ONE (20:50)
[2018-10-26] MEDS ORDERED: LORAZEPAM INJ 2 MG/1 ML VIAL IV PRN (21:28)
[2018-10-26] MEDS ORDERED: ONDANSETRON HCL INJ/PF 4 MG/2 ML SDV IV PRN (21:29)
[2018-10-26] MEDS ORDERED: FENTANYL CITRATE INJ/PF 100 MCG/2 ML AMPUL IV PRN (21:29)
[2018-10-26] MEDS ORDERED: CHLORPROMAZINE HCL INJ 25 MG/1 ML AMPULE IV PRN (23:42)
[2018-10-26] MEDS ORDERED: ATROPINE SULFATE INJ 1 MG/1 ML VIAL IV PRN (23:44)
[2018-10-27] MEDS: LORAZEPAM INJ 2 MG/1 ML VIAL IV PRN ×3 (00:39→13:13)
[2018-10-27] MEDS: HYDROMORPHONE HCL INJ/PF 2 MG/ML AMPULE IV PRN ×3 (01:05→10:31)
[2018-10-27 01:16] VITALS: BP 117/59
--- NOTE | 2018-10-27 01:23 | PDOC H&P ---
History of Present Illness Admission Date/PCP: 10/26/18 22:10 GUALBERTO FERNANDEZ PA-C Patient complains of: Intractable vomiting History of Present Illness: SANDRA FLORENTINO is a 87 year old female who presented to the emergency room with a 2- day history of intractable vomiting. Patient is brought by her family will be taking care of her in a home hospice environment for her end-stage mesothelioma with multiple metastases. She began vomiting uncontrollably 2 days prior to her ER visit and was seen in on 10/25/2018 in the ER with a diagnosis of UTI and initiation of antibiotic therapy which has not improved her overall course. She has constant nausea and over the last 24 hours she has developed significant somnolence and has begun vomiting nick blood in her emesis. She is being admitted as a DNR on comfort measures only with a request to transfer to a inpatient hospice environment. Her daughter is present with her and is the power of instrumentation fitter and is making this request on her mother's behalf. Patient was seen in the emergency room and evaluated briefly. She was noted to have an elevated white blood count of 40,400, a potassium of 2.7 and a BUN of 55. She is being admitted for comfort measures only pending transfer to a inpatient hospice environment. Past Medical History Cardiac Medical History: Reports: Hyperlipidema Denies: Myocardial Infarction, Hypertension Pulmonary Medical History: Denies: Asthma, Chronic Obstructive Pulmonary Disease (COPD) EENT Medical History: Denies: Cataracts, Ears Neurological Medical History: Denies: Hemorrhagic CVA, Ischemic CVA, Seizures Endocrine Medical History: Denies: Diabetes Mellitus Type 1, Diabetes Mellitus Type 2, Hyperthyroidism, Hypothyroidism Renal/ Medical History: Denies: Chronic Kidney Disease, Nephrolithiasis Malignancy Medical History: Reports: Other - Mesothelioma with metastasis. GI Medical History: Denies: Cirrhosis, Crohn's Disease, Hepatitis, Hiatal Hernia, Ulcerative Colitis Musculoskeltal Medical History: Denies: Arthritis, Fibromyalgia Skin Medical History: Denies: Eczema, Psoriasis Psychiatric Medical History: Denies: Alcohol Dependency, Substance Abuse, Tobacco Dependency Traumatic Medical History: Reports: None Hematology: Denies: Anemia, Bleeding Tendencies Infectious Medical History: Reports: None Past Surgical History Past Surgical History: Reports: Hysterectomy Social History Information Source: Relative Lives with: Family Smoking Status: Never Smoker Frequency of Alcohol Use: None Hx Recreational Drug Use: No Drugs: None Hx Prescription Drug Abuse: No - Advance Directive Resuscitation Status: Do Not Resuscitate Surrogate healthcare decision maker:: Carmita Whiteside Family History Family History: Hypertension Parental Family History Reviewed: Yes Children Family History Reviewed: No Sibling(s) Family History Reviewed.: Yes Medication/Allergy Home Medications: Ascorbic Acid [Vitamin C 500 mg Tablet] 500 mg PO DAILY 12/12/16 Calcium Carbonate/Vitamin D3 [Calcium 500 + Vit D Caplet] 1 each PO DAILY 12/12/16 Flaxseed Oil [Flax Seed Oil] 1,000 mg PO DAILY 12/12/16 Glucosamine Sulfate Dipot Chlr [Glucosamine] 1,000 mg PO DAILY 12/12/16 Multivitamin [Multivitamins] 1 each PO DAILY 12/12/16 [place]-3 Fatty Acids/Fish Oil [Fish Oil 300 mg Softgel] 1 each PO DAILY 12/12/16 Selz's Wort 150 mg PO DAILY 12/12/16 Ubidecarenone/Vit E Acet [Co Q-10 100 mg Softgel] 1 each PO DAILY 06/28/18 Cholestyramine/Aspartame [Questran Light 4 gm Packet] 4 gm PO BIDP PRN #20 packet 07/04/18 Magnesium Oxide [Mag-Ox 400 mg Tablet] 800 mg PO BID #60 tablet 07/04/18 Cefdinir [Omnicef 300 mg Capsule] 1 cap PO BID #14 capsule 10/22/18 Diphenoxylate HCl/Atrop Sulf [Lomotil 2.5 mg Tablet] 2 tab PO Q6HP PRN #20 tablet 10/22/18 Potassium Chloride [Klor-Con M20] 20 meq PO BID #10 tab.er.prt 10/22/18 Ciprofloxacin HCl [Cipro 500 mg Tablet] 500 mg PO BID #20 tablet 10/25/18 Promethazine HCl [Phenergan 25 mg Supp.rect] 25 mg MI Q4HP PRN #30 supp.rect 10/25/18 Allergies/Adverse Reactions: morphine Adverse Reaction (Verified 10/25/18 16:22) Nausea Review of Systems Constitutional: ABSENT: chills, fever(s) Eyes: ABSENT: visual disturbances, other - Ocular pain Ears: ABSENT: hearing changes, other - Ear pain Nose, Mouth, and Throat: PRESENT: sore throat - Due to vomiting. ABSENT: mouth pain Cardiovascular: ABSENT: chest pain, palpitations Respiratory: ABSENT: cough, dyspnea Gastrointestinal: PRESENT: as per HPI, hematemesis, nausea, vomiting. ABSENT: abdominal pain, constipation, diarrhea Genitourinary: ABSENT: dysuria, hematuria Musculoskeletal: PRESENT: muscle weakness - Gradually worsening generalized weakness. ABSENT: joint swelling Integumentary: ABSENT: pruritus, rash Neurological: PRESENT: other - Increased somnolence. ABSENT: confusion, convulsions, focal weakness, memory loss, syncope Psychiatric: ABSENT: anxiety, depression Endocrine: ABSENT: cold intolerance, heat intolerance Hematologic/Lymphatic: ABSENT: easy bleeding, easy bruising Physical Exam Vital Signs: Temp Pulse Resp BP Pulse Ox 100.7 F H 25 H 120/68 10/26/18 18:30 10/26/18 22:01 10/26/18 22:01 Intake & Output 10/24/18 10/25/18 10/26/18 23:59 23:59 23:59 Intake Total 49 Balance 49 Weight 57.153 kg General appearance: PRESENT: no acute distress, other - Somnolent Head exam: PRESENT: atraumatic, normocephalic Eye exam: PRESENT: conjunctiva pink. ABSENT: conjunctival injection, scleral icterus Ear exam: PRESENT: normal external ear exam. ABSENT: bleeding, drainage Mouth exam: PRESENT: dry mucosa, neck supple Neck exam: ABSENT: thyromegaly, tracheal deviation Respiratory exam: PRESENT: clear to auscultation [place], symmetrical, unlabored Cardiovascular exam: PRESENT: RRR, tachycardia. ABSENT: clicks, gallop, rubs Pulses: PRESENT: normal radial pulses, normal dorsalis pedis pul Vascular exam: PRESENT: normal capillary refill. ABSENT: pallor GI/Abdominal exam: PRESENT: hypoactive bowel sounds, soft Rectal exam: PRESENT: deferred Extremities exam: ABSENT: joint swelling, pedal edema Musculoskeletal exam: ABSENT: deformity, dislocation Neurological exam: PRESENT: altered - Somnolent and not roused due to comfort measures only status Psychiatric exam: PRESENT: other - Not assessed due to somnolence Skin exam: PRESENT: dry, intact, warm. ABSENT: jaundice, rash, urticaria Results Laboratory Results: 10/26/18 18:36 10/26/18 18:36 10/26/18 10/26/18 10/26/18 18:30 18:36 18:36 WBC 40.4 H* RBC 4.71 Hgb 15.0 Hct 43.1 MCV 92 MCH 31.9 MCHC 34.9 RDW 16.9 H Plt Count 336 Seg Neutrophils % Not Reportable Lymphocytes % Not Reportable Monocytes % Not Reportable Eosinophils % Not Reportable Basophils % Not Reportable Absolute Neutrophils Not Reportable Absolute Lymphocytes Not Reportable Absolute Monocytes Not Reportable Absolute Eosinophils Not Reportable Absolute Basophils Not Reportable Sodium 132.1 L Potassium 2.7 L* Chloride 106 Carbon Dioxide 14 L Anion Gap 12 BUN 55 H Creatinine 0.82 Est GFR ( Amer) > 60 Est GFR (Non-Af Amer) > 60 Glucose 232 H Lactic Acid 2.0 Calcium 10.9 H Total Bilirubin 0.3 AST 26 Alkaline Phosphatase 103 Total Protein 5.1 L Albumin 3.0 L Lipase 79.1 Impressions: Head CT 10/26/18 00:00 IMPRESSION: NO ACUTE INTRACRANIAL FINDINGS. EVIDENCE OF ACUTE STROKE: NO. Chest X-Ray 10/26/18 19:03 IMPRESSION: NO ACUTE FINDINGS. Assessment and Plan - Diagnosis (1) Comfort measures only status Is this a current diagnosis for this admission?: Yes Plan: The patient will be treated for comfort measures only. IV access will be maintained for administration of medication for nausea vomiting and pain as well as other comfort needs. Medications will include Thorazine 25 mg IV every 4 hours as needed intractable nausea and vomiting. Ativan 1 mg IV q. one hour as needed anxiety. Dilaudid 1 mg IV q. one hour as needed pain. Atropine 0.25 mg IV every 4 hours as needed excessive secretions. Any and all other comfort measures needed for the patient's improved care and preservation of dignity will be provided. (2) Intractable vomiting with nausea Is this a current diagnosis for this admission?: Yes Plan: Patient's intractable vomiting will be treated with Thorazine 25 mg IV every 4 hours as needed for control of her intractable nausea and vomiting. (3) Hematemesis Qualifiers: Nausea presence: with nausea Qualified Code(s): K92.0 - Hematemesis Is this a current diagnosis for this admission?: Yes Plan: Patient's hematemesis will be addressed as part of her comfort measures therapy in alleviating her nausea and intractable vomiting. No specific treatment or investigation of the cause of the hematemesis will be undertaken. (4) Hypokalemia Is this a current diagnosis for this admission?: Yes Plan: No plan to treat the patient's hypokalemia is made as she is being treated as comfort measures only. (5) Leukocytosis Qualifiers: Leukocytosis type: unspecified Qualified Code(s): D72.829 - Elevated white blood cell count, unspecified Is this a current diagnosis for this admission?: Yes Plan: No specific therapy or further evaluation of the patient's leukocytosis will be undertaken as she is being treated as comfort measures only. (6) Mesothelioma of lung Is this a current diagnosis for this admission?: Yes Plan: Patient is being admitted as comfort measures only so no further evaluation or treatment of this problem will occur during this hospital course. Pain associated with mesothelioma and its metastases will be treated as part of comfort measures. - Time Time Spent with patient: 15-24 minutes Medications reviewed and adjusted accordingly: Yes Anticipated discharge: Hospice - Inpatient Certification Based on my medical assessment, after consideration of the patient's comorbidities, presenting symptoms, or acuity I expect that the services needed warrant INPATIENT care.: Yes I certify that my determination is in accordance with my understanding of Medicare's requirements for reasonable and necessary INPATIENT services [42 CFR 412.3e].: Yes Medical Necessity: Other - Need for comfort measures care cannot be provided in her home.
--- NOTE | 2018-10-27 01:49 | ADVANCED CARE ---
- Diagnosis (1) Comfort measures only status Diagnosis Current: Yes (2) Intractable vomiting with nausea Diagnosis Current: Yes (3) Hematemesis Diagnosis Current: Yes (4) Hypokalemia Diagnosis Current: Yes (5) Leukocytosis Diagnosis Current: Yes (6) Mesothelioma of lung Diagnosis Current: Yes Attendance: The patient her daughter Carmita Regain and myself. Resuscitation Status: Comfort Measures Only Discussion: After discussion with Carmita it was determined that the patient would definitely need to be comfort measures only at this point. It is hoped that she can be transferred to a hospice inpatient facility sometime over the next few days if she survives that length of time. Carmita has been reassured that we will do everything we can to make her mother's time with us as comfortable as possible and should her end time come we will do everything we can to provide for a comfortable and dignified . Care Planning Goals: Comfort measures only Document(s) Completed: Patient has been converted to comfort measures only status. Time Spent: 16 minutes
[2018-10-27] MEDS ORDERED: ACETAMINOPHEN 650 MG SUPP.RECT PR PRN (06:55)
--- NOTE | 2018-10-27 09:20 | EKG REPORT ---
SEVERITY:- ABNORMAL ECG - SINUS TACHYCARDIA FIRST DEGREE AV BLOCK PROBABLE LEFT ATRIAL ABNORMALITY LEFT AXIS DEVIATION NONSPECIFIC REPOL ABNORMALITY, DIFFUSE LEADS : Confirmed by: Georges Yao MD 27-Oct-2018 09:19:39
--- NOTE | 2018-10-27 11:34 | Progress Note Acknowledgement ---
Progress Note Acknowledgement Progess Note Acknowledgement: I, the undersigned member of the medical staff with appropriate privileges and with supervisory authority over [ PAC ], a dependent practice allied health professional, acknowledge that I have reviewed the progress notes entered on this patient, and in my professional judgment believe that the assessment made and/or any care evidenced was appropriate
--- NOTE | 2018-10-27 11:40 | PDOC PROGRESS REPORT ---
Subjective Progress Note for:: 10/27/18 Reason For Visit: INTRACTABLE NAUSEA AND VOMITING, COMFORT MEASURES 87-year-old female for comfort care for metastatic mesothelioma patient is a DNR. Patient is waiting to be transferred to facility for hospice. Physical Exam Vital Signs: Temp Pulse Resp BP Pulse Ox 98.7 F 116 H 24 H 117/59 L 94 10/27/18 01:05 10/27/18 01:05 10/27/18 01:05 10/27/18 01:05 10/27/18 01:05 Intake & Output 10/26/18 10/27/18 10/28/18 06:59 06:59 06:59 Intake Total 2090 Balance 2090 Weight 57.153 kg General appearance: PRESENT: thin, other - Allergic secondary to Dilaudid and Ativan Head exam: PRESENT: atraumatic, normocephalic Respiratory exam: PRESENT: clear to auscultation [place]. ABSENT: rales, rhonchi, wheezes Cardiovascular exam: PRESENT: RRR. ABSENT: diastolic murmur, rubs, systolic murmur Neurological exam: PRESENT: other - Allergic secondary to IV Dilaudid and IV Ativan Results Laboratory Results: 10/26/18 18:36 10/26/18 18:36 10/26/18 10/26/18 10/26/18 18:30 18:36 18:36 WBC 40.4 H* RBC 4.71 Hgb 15.0 Hct 43.1 MCV 92 MCH 31.9 MCHC 34.9 RDW 16.9 H Plt Count 336 Seg Neutrophils % Not Reportable Lymphocytes % Not Reportable Monocytes % Not Reportable Eosinophils % Not Reportable Basophils % Not Reportable Absolute Neutrophils Not Reportable Absolute Lymphocytes Not Reportable Absolute Monocytes Not Reportable Absolute Eosinophils Not Reportable Absolute Basophils Not Reportable Sodium 132.1 L Potassium 2.7 L* Chloride 106 Carbon Dioxide 14 L Anion Gap 12 BUN 55 H Creatinine 0.82 Est GFR ( Amer) > 60 Est GFR (Non-Af Amer) > 60 Glucose 232 H Lactic Acid 2.0 Calcium 10.9 H Total Bilirubin 0.3 AST 26 Alkaline Phosphatase 103 Total Protein 5.1 L Albumin 3.0 L Lipase 79.1 Impressions: Head CT 10/26/18 00:00 IMPRESSION: NO ACUTE INTRACRANIAL FINDINGS. EVIDENCE OF ACUTE STROKE: NO. Chest X-Ray 10/26/18 19:03 IMPRESSION: NO ACUTE FINDINGS. Assessment and Plan - Diagnosis (1) Comfort measures only status Is this a current diagnosis for this admission?: Yes Plan: The patient will be treated for comfort measures only. IV access will be maintained for administration of medication for nausea vomiting and pain as well as other comfort needs. Medications will include Thorazine 25 mg IV every 4 hours as needed intractable nausea and vomiting. Ativan 1 mg IV q. one hour as needed anxiety. Dilaudid 1 mg IV q. one hour as needed pain. Atropine 0.25 mg IV every 4 hours as needed excessive secretions. Any and all other comfort measures needed for the patient's improved care and preservation of dignity will be provided. Patient has a bed at [facility]. We will transfer the patient JULIA (2) Intractable vomiting with nausea Is this a current diagnosis for this admission?: Yes Plan: Patient's intractable vomiting will be treated with Thorazine 25 mg IV every 4 hours as needed for control of her intractable nausea and vomiting. Patient is no longer having vomiting transfer to hospice for comfort measures (3) Mesothelioma of lung Is this a current diagnosis for this admission?: Yes Plan: Patient is being admitted as comfort measures only so no further evaluation or treatment of this problem will occur during this hospital course. Pain as sociated with mesothelioma and its metastases will be treated as part of comfort measures. 10/27/2018 patient is on comfort measures and has a bed at [facility] she will be transferred today - Time Time Spent with patient: 25-34 minutes
--- NOTE | 2018-10-27 11:51 | PDOC TRANSFER SUMMARY ---
General - Admit/Disc Date/PCP Admission Date/Primary Care Provider: 10/26/18 22:10 GUALBERTO FERNANDEZ PA-C 10/27/2018 patient was admitted last night for intractable vomiting for 48 hours patient has metastatic mesothelioma and is being put in the hospital for comfort care only. Patient has a bed at t her hospice and will be transferred ,family is in agreement Discharge Date: 10/27/18 - Discharge Diagnosis (1) Comfort measures only status Is this a current diagnosis for this admission?: Yes Summary: 10/27/2018 patient is currently being treated with IV Dilaudid and IV Ativan and due to her poor prognosis patient is comfort measures only (2) Intractable vomiting with nausea Is this a current diagnosis for this admission?: Yes Summary: 10/27/2018 patient has been given Dilaudid and Ativan had Thorazine as needed patient has had no vomiting since admission (3) Mesothelioma of lung Is this a current diagnosis for this admission?: Yes Summary: 10/27/2018 patient has a diagnosis of mesothelioma of the lung with mets - Additional Information Resuscitation Status: Comfort Measures Only Home Medications: Acetaminophen [Tylenol 650 mg Supp] 650 mg NM Q6HP PRN supp.rect 10/27/18 Atropine Sulfate [Atropine Inj 1 mg/1 ml Vial] 0.25 mg IV Q4HP PRN vial 10/27/18 Chlorpromazine HCl [Thorazine Inj 25 mg/1 ml Ampule] 25 mg IV Q4HP PRN ampul 10/27/18 Hydromorphone HCl/Pf [Dilaudid Inj/Pf 2 mg/ml Ampule] 1 mg IV Q1HP PRN vial 10/27/18 Lorazepam [Ativan Inj 2 mg/1 ml Vial] 1 mg IV Q1HP PRN vial 10/27/18 History of Present Illness Admission Date/PCP: 10/26/18 22:10 GUALBERTO FERNANDEZ PA-C 10/27/2018 7-year-old female who was admitted through the emergency room for intractable vomiting x48 hours patient has a history of mesothelioma with metastases. Patient is a DNR and comfort measures only patient has a bed at hospice and will be transferred. Family is in agreement History of Present Illness: SANDRA FLORENTINO is a 87 year old female Hospital Course Hospital Course: 10/27/2018 patient was admitted last night through the emergency room for intractable intractable vomiting 48 hours. Patient had Thorazine Dilaudid and Ativan ordered. patient has had no vomiting since being in the hospital. Patient has a bed at hospice and will be transferred for comfort measures only Physical Exam Vital Signs: Temp Pulse Resp BP Pulse Ox 98.7 F 116 H 24 H 117/59 L 94 10/27/18 01:05 10/27/18 01:05 10/27/18 01:05 10/27/18 01:05 10/27/18 01:05 Intake & Output 10/26/18 10/27/18 10/28/18 06:59 06:59 06:59 Intake Total 2090 Balance 2090 Weight 57.153 kg General appearance: PRESENT: severe distress, other - Comfort measures lethargic secondary to medications Head exam: PRESENT: atraumatic, normocephalic Respiratory exam: PRESENT: clear to auscultation [place]. ABSENT: rales, rhonchi, wheezes Cardiovascular exam: PRESENT: RRR. ABSENT: diastolic murmur, rubs, systolic murmur Neurological exam: PRESENT: other - Lethargy secondary to Dilaudid and Ativan, and/or fatal disease Results Laboratory Results: 10/26/18 18:36 10/26/18 18:36 10/26/18 10/26/18 10/26/18 18:30 18:36 18:36 WBC 40.4 H* RBC 4.71 Hgb 15.0 Hct 43.1 MCV 92 MCH 31.9 MCHC 34.9 RDW 16.9 H Plt Count 336 Seg Neutrophils % Not Reportable Lymphocytes % Not Reportable Monocytes % Not Reportable Eosinophils % Not Reportable Basophils % Not Reportable Absolute Neutrophils Not Reportable Absolute Lymphocytes Not Reportable Absolute Monocytes Not Reportable Absolute Eosinophils Not Reportable Absolute Basophils Not Reportable Sodium 132.1 L Potassium 2.7 L* Chloride 106 Carbon Dioxide 14 L Anion Gap 12 BUN 55 H Creatinine 0.82 Est GFR ( Amer) > 60 Est GFR (Non-Af Amer) > 60 Glucose 232 H Lactic Acid 2.0 Calcium 10.9 H Total Bilirubin 0.3 AST 26 Alkaline Phosphatase 103 Total Protein 5.1 L Albumin 3.0 L Lipase 79.1 Impressions: Head CT 10/26/18 00:00 IMPRESSION: NO ACUTE INTRACRANIAL FINDINGS. EVIDENCE OF ACUTE STROKE: NO. Chest X-Ray 10/26/18 19:03 IMPRESSION: NO ACUTE FINDINGS. Transfer Plan - Disposition Transfer Plan: 10/27/2018 patient will be transferred to [facility], for comfort measures - Time Spent with Patient Time spent with patient: Greater than 30 Minutes Qualifiers - * PATIENT BEING DISCHARGED WITH ANY OF THE FOLLOWING DIAGNOSIS: No Plan Discharge Plan: 10/27/2018 transfer to hospice for comfort measures. Patient had Thorazine Dilaudid and Ativan ordered here and is resting comfortably Time Spent: Greater than 30 Minutes
[2018-10-29 11:24] LABS: PATH REVIEW PATHOLOGIST REVIEWED
== END 2018-10-27 15:18 | disposition hospice, inpatient (51) | DRG 844 ==
LOC: ER 18:10 → EH 22:10 → 5 10-27 00:02
PROVIDERS: ADMIT Emergency Medicine; ATTEND Emergency Medicine
DX: C45.7 Mesothelioma of other sites (principal); K92.0 Hematemesis; Z51.5 Encounter for palliative care; Z66 Do not resuscitate; C79.9 Secondary malignant neoplasm of unspecified site; E78.5 Hyperlipidemia, unspecified; E87.6 Hypokalemia; Z88.6 Allergy status to analgesic agent
CPT/HCPCS: 36415; 70450; 71045; 80053; 83605; 83690; 85025; 85610; 85730; 87040; 93005; 93010; 96361; 96365; 96367; 96375; 99291; J0780; J1170; J2060; J2405; J2543; J3010; J3480; J7030; S0028; S0164